=== PATIENT | female | born 1970 | race Caucasian/White ===

== ENCOUNTER → 2020-09-05 16:04 | Outpatient (CLI) | payer OTHER, SELFPAY ==
--- NOTE | ~2020-09-05 | XR_ITS ---
EXAMINATION: XR chest 2V DATE: 09/05/2020 16:19 INDICATION: Cough and wheezing. TECHNIQUE: Frontal and lateral views of the chest were obtained. COMPARISON: CT abdomen and pelvis 02/09/10 FINDINGS: There are mild airspace opacities in right mid and upper lung zones and left mid and lower lung zones. No pleural effusion or pneumothorax. The heart size is normal. IMPRESSION: 1. Multifocal lung disease suspicious for atypical pneumonia such as COVID-19 pneumonia. Reviewed, dictated and finalized at location A. INE PECAN PICKER IMPRESSION: 1. Multifocal lung disease suspicious for atypical pneumonia such as COVID-19 p neumonia.
== END ==
PROVIDERS: PCP Physician Assistant; Visit Provider Physician Assistant
DX: R05 Cough (principal); R06.2 Wheezing
CPT/HCPCS: 71046

== ENCOUNTER → 2020-09-16 10:33 | Outpatient (CLI) | payer OTHER, SELFPAY ==
--- NOTE | ~2020-09-16 | XR_ITS ---
EXAMINATION: XR chest 2V 09/16/2020 10:50 INDICATION: Follow-up pneumonia PROCEDURE: 2 view chest COMPARISON: 09/05/2020 FINDINGS: The lungs are clear. The cardiomediastinal silhouette is within normal limits. There are no pleural effusions. There is no pneumothorax suspected. IMPRESSION: 1: NO ACUTE CARDIOPULMONARY DISEASE. Reviewed, dictated and finalized at location B. ER
== END ==
PROVIDERS: PCP Physician Assistant; Visit Provider Physician Assistant
DX: J18.9 Pneumonia, unspecified organism (principal)
CPT/HCPCS: 71046

== ENCOUNTER → 2020-12-20 07:02 | Outpatient (CLI) | payer OTHER, SELFPAY ==
[2020-12-20 22:47] LABS: SARS-CoV-2 RNA PCR Negative
== END ==
PROVIDERS: PCP Physician Assistant; Visit Provider Physician Assistant
DX: R68.89 Other general symptoms and signs (principal); Z20.822 Contact with and (suspected) exposure to COVID-19
CPT/HCPCS: C9803; U0003; U0005

== ENCOUNTER 2021-09-19 17:39 | Emergency (ER) | payer OTHER, SELFPAY ==
--- NOTE | ~2021-09-19 | XR_ITS ---
EXAMINATION: XR chest 2V EXAM DATE: 09/19/2021 18:02 INDICATION: Pain between shoulder blades, posterior chest pain. TECHNIQUE: Frontal and lateral projections of the chest obtained and reviewed. Comparison is made to prior examination from 09/16/2020. FINDINGS: The lungs are clear. There are no pleural effusions. The cardiomediastinal silhouette is within normal limits. There is no pneumothorax suspected. The bones and soft tissues are unremarkab le. IMPRESSION: No acute cardiopulmonary findings. Reviewed, dictated and finalized at location A. MENDER
--- NOTE | 2021-09-19 17:40 | ECG_ITS ---
Measurements Intervals [place] Rate: 88 P: 6 [place]: 189 QRS: 20 QRSD: 81 T: 12 QT: 334 QTc: 406 Interpretive Statements SINUS RHYTHM NORMAL ECG Electronically Signed On 09-19-2021 20:21:31 [employer]OMER SERVICE DISPATCHER by Maximino Cruz D.O.
[2021-09-19 17:54] VITALS: BP 145/84; PULSE 99; RESP 17; TEMP 36.1; O2SAT 100
[2021-09-19 18:18] LABS: Basophils Percent Auto 0.5 % (0.2-1.2); Eosinophils Absolute Auto 0.2 K/mm3 (0-0.3); Hematocrit 40.4 % (37.0-47.0); Hemoglobin 13.7 g/dL (12.0-15.0); Immature Granulocyte Absolute 0.03 K/mm3 (0.00-0.031); Immature Granulocyte Percent A 0.4 % (0-0.5); Lymphocytes Percent Auto 27.3 % (18.3-44.2); Mean Corpuscular HGB Conc 33.9 g/dl (32-36); Mean Corpuscular Hemoglobin 30.6 pg (26-34); Mean Corpuscular Volume 90.4 fl (80-100); Mean Platelet Volume 10.3 fl (7.4-10.4); Monocytes Absolute Auto 0.5 K/mm3 (0.1-0.6); Monocytes Percent Auto 6.1 % (2.6-8.5); Neutrophils Absolute Auto 5.4 K/mm3 (1.3-6.7); Neutrophils Percent Auto 63.7 % (45.5-73.1); Platelet Count Result 260 k/mm3 (150-375); Red Blood Count 4.47 M/mm3 (4.2-5.4); Red Cell Distribution Width 11.9 % (11.5-14.5); White Blood Count 8.4 K/mm3 (4.5-10.0)
[2021-09-19 18:22] LABS: Prothrombin Time 13.1 Seconds (11.1-14.7)
[2021-09-19 18:23] LABS: Partial Thromboplastin Time 30.1 SECONDS (22.3-36.8)
[2021-09-19 18:25] LABS: Alanine Aminotransferase 40 U/L (4-35); Albumin Level 4.7 g/dL (3.5-5.1); Alkaline Phosphatase 81 U/L (38-126); Anion Gap 8 mmol/L (8-16); Aspartate Amino Transferase 33 U/L (14-36); Bilirubin,Total 0.4 mg/dL (0.2-1.3); Blood Urea Nitrogen 11 mg/dL (7-17); Calcium 9.4 mg/dL (8.4-10.2); Carbon Dioxide 27 mmol/L (22-30); Chloride 96 mmol/L (98-107); Estimated CRCL calculation 76 ml/min; Estimated Glomerular Filt Rate > 60; Glucose 82 mg/dL (65-110); Lipase 79 U/L (23-300); Potassium 3.6 mmol/L (3.4-5.0); Sodium 131 mmol/L (137-145)
[2021-09-19 18:35] LABS: Troponin I < 0.012 ng/mL (0.000-0.034)
--- NOTE | 2021-09-19 20:10 | ED.CHESTPAIN ---
HPI - Chest Pain General Chief Complaint: Chest Pain Stated Complaint: chest pain Time Seen by Provider: 09/19/21 19:59 Source: patient and family Mode of arrival: ambulatory Limitations: no limitations History of Present Illness HPI narrative: 51-year-old with no major medical problems sent from urgent care with complaints of midsternal chest pain radiating into her mid back. Patient states that she had pain last night. She states the pain is much eased up. She denies history of coronary artery disease. No history of cough or shortness of breath. Denies any nausea or vomiting. No previous history of GERD. MD complaint: chest pain Onset (ago): day(s) (1) Prior episodes: No Onset: during rest Pain location: substernal Pain radiation: back Severity: moderate Relieving factors: nothing Exacerbating factors: nothing Treatment prior to arrival: none Risk Factors Coronary artery disease risk factors: none Related Data Allergies Allergy/AdvReac Type Severity Reaction Status Date / Time Cephalosporins Allergy Mild Rash Verified 09/19/21 17:53 doxycycline Allergy Mild H/A, Verified 09/19/21 17:53 nausea, dizziness cephalexin Allergy Unknown Unknown Verified 09/19/21 17:53 Sulfa (Sulfonamide Allergy Unknown Unknown Verified 09/19/21 17:53 Antibiotics) sulfamethizole Allergy Unknown Unknown Verified 09/19/21 17:53 tetracycline Allergy Unknown Unknown Verified 09/19/21 17:53 trimethoprim Allergy Unknown Unknown Verified 09/19/21 17:53 Review of Systems Review of Systems: All systems reviewed & are unremarkable except as noted in HPI and below Constitutional: Constitutional: Reports no additional constitutional complaints Eyes: Eyes: Reports no additional eye complaints ENT: Reports system reviewed and no additional complaints, except as documented Cardiovascular: Cardiovascular: Reports as per HPI Respiratory: Respiratory: Reports no additional respiratory complaints Gastrointestinal: Gastrointestinal: Reports no additional gastrointestinal complaints Musculoskeletal: Musculoskeletal: Reports no additional musculoskeletal complaints Neurologic: Reports system reviewed and no additional complaints, except as documented Hematologic/Lymphatic: Hematologic/Lymphatic: Reports no additional hematologic/lymphatic complaints [facility] Family History Family History Mother Hypertension Other Carcinoma of colon Family history of arthritis Family history of lung disease Family history of malignant neoplasm Social History Social History Smoking status: Never smoker Alcohol intake: current Exam Narrative: GENERAL: Well-appearing, well-nourished, and in no acute distress. HEAD: Normocephalic, atraumatic. EYES: PERRLA and EOMI. ENT: Nares clear, no rhinorrhea or epistaxis. Mucous membranes moist. NECK: Supple. CHEST: Clear to auscultation. No respiratory distress. HEART: Regular rate and rhythm. No murmur heard. Normal peripheral pulses. ABDOMEN: Soft, nontender, nondistended, normal active bowel sounds. EXTREMITIES: Normal range of motion. No edema. SKIN: Warm, dry, no rash. NEURO: No focal deficits. Alert and oriented x3. PSYCH: Normal mood and affect. Course Course Emergency Course: Patient upon arrival to the ER has no chest pain. Informed her about her lab work, EKG. Cause of her pain most likely appears to be atypical chest pain. Advised her to follow-up with her primary doctor. She does feel comfortable going home. Vital Signs Vital signs: Vital Signs Temperature 36.1 C L 09/19/21 17:54 Pulse Rate 99 09/19/21 17:54 Respiratory Rate 17 09/19/21 17:54 Blood Pressure 145/84 H 09/19/21 17:54 Pulse Oximetry 100 09/19/21 17:54 Temperature 36.1 C L 09/19/21 17:54 Pulse Rate 99 09/19/21 17:54 Respiratory Rate 17 09/19/21 17:54 Blood Pressure 145/84 H 09/19
[2021-09-19 20:49] VITALS: BP 126/87; PULSE 108; RESP 22; O2SAT 100
== END 2021-09-19 20:53 | disposition home or self-care (01) ==
LOC: ANHED 20:27
PROVIDERS: Emergency Medicine; Emergency Provider Family Medicine; PCP Physician Assistant
DX: R07.2 Precordial pain (principal)
CPT/HCPCS: 36415; 71046; 80053; 83690; 84484; 85025; 85610; 85730; 93005; 99284

== ENCOUNTER 2021-11-07 14:15 | Outpatient (CLI) | payer OTHER, SELFPAY ==
--- NOTE | ~2021-11-07 | US_ITS ---
EXAMINATION: US venous doppler UE RT EXAM DATE: 11/07/2021 14:45 INDICATION: Right upper extremity swelling. TECHNIQUE: Multiple grayscale, color flow, Doppler sonographic images of the right upper extremity ve ins obtained by technologist. Compression was performed where able. There is no prior study for mallorie murphy. FINDINGS: Right upper extremity: Jugular vein: ------------> Normal. Subclavian vein: --------> Normal. Axillary vein:------------> Normal. Brachial vein:-----------> Normal. Basilic vein: ------------> Normal. Cephalic vein: ----------> Normal. Radial vein: ------------> Normal. Ulnar vein: > Normal. IMPRESSION: No deep venous thrombosis of the right upper extremity. Reviewed, dictated and finalized at location A. ER
== END 2021-11-07 14:16 | disposition home or self-care (01) ==
LOC: ANHIMG 14:17
PROVIDERS: PCP Physician Assistant; Visit Provider Physician Assistant
DX: R22.31 Localized swelling, mass and lump, right upper limb (principal)
CPT/HCPCS: 93971

== ENCOUNTER 2021-11-29 08:32 | Outpatient (CLI) | payer OTHER, SELFPAY ==
--- NOTE | ~2021-11-29 | XR_ITS ---
EXAMINATION: XR hand RT min 3V INDICATION: Right hand swelling TECHNIQUE: Three views of the right hand are obtained. COMPARISON: None available FINDINGS: Bone alignment is normal. There is no fracture. 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 The soft tissues a re unremarkable. IMPRESSION: 1. No acute osseous abnormality. Reviewed, dictated and finalized at location A. RVISOR MATRIX
== END 2021-11-29 08:33 | disposition home or self-care (01) ==
LOC: ANHIMG 08:37
PROVIDERS: PCP Physician Assistant; Visit Provider Physician Assistant
DX: R60.0 Localized edema (principal)
CPT/HCPCS: 73130

== ENCOUNTER → 2022-02-07 14:01 | Outpatient (CLI) | payer OTHER, SELFPAY ==
--- NOTE | ~2022-02-07 | XR_ITS ---
XR chest 2V DATE: 02/07/2022 14:12 INDICATION: Cough TECHNIQUE: PA and lateral views COMPARISON: 09/19/2021 PA and lateral chest FINDINGS: Normal heart size. No hilar or mediastinal enlargement. No pulmonary infiltrate or consolid ation, pleural effusion or pulmonary vascular congestion or pneumothorax. IMPRESSION: No active cardiopulmonary disease Reviewed, dictated and finalized at location A.
== END ==
PROVIDERS: PCP Physician Assistant; Visit Provider Physician Assistant
DX: R05.1 Acute cough (principal)
CPT/HCPCS: 71046

== ENCOUNTER 2022-02-20 10:35 | Outpatient (CLI) | payer OTHER, SELFPAY ==
--- NOTE | 2022-02-20 11:15 | NEURO_ITS ---
Impression: # Complains of numbness of hands. # Subtle evolving left Carpal Tunnel Syndrome. # No ulnar neuropathy. # Normal needle/EMG exam. # Clinical correlation recommended. Nerve Conduction Studies Anti Sensory Summary Table Stim Site NR Peak (ms) P-T Amp (?V) Site1 Site2 Delta-P (ms) Dist (cm) Roberth (m/s) Left Median Anti Sensory (2-3nd Digit) Wrist 2.6 70.9 Wrist 2-3nd Digit 2.6 14.0 54 Wrist 2.6 92.5 Wrist 2-3nd Digit 2.6 14.0 54 Right Median Anti Sensory (2-3nd Digit) Wrist 2.3 94.1 Wrist 2-3nd Digit 2.3 14.0 61 Wrist 2.4 95.4 Wrist 2-3nd Digit 2.3 14.0 61 Left Radial Anti Sensory (Base 1st Digit) Wrist 1.6 31.4 Wrist Base 1st Digit 1.6 0.0 Right Radial Anti Sensory (Base 1st Digit) Wrist 2.0 41.7 Wrist Base 1st Digit 2.0 0.0 Left Ulnar Anti Sensory (5th Digit) Wrist 2.1 83.2 Wrist 5th Digit 2.1 14.0 67 Right Ulnar Anti Sensory (5th Digit) Wrist 2.2 86.4 Wrist 5th Digit 2.2 14.0 64 Motor Summary Table Stim Site NR Onset (ms) O-P Amp (mV) Site1 Site2 Delta-0 (ms) Dist (cm) Roberth (m/s) Left Median Motor (Abd Poll Brev) Wrist 3.4 7.0 Elbow Wrist 4.7 27.0 57 Elbow 8.1 3.5 Right Median Motor (Abd Poll Brev) Wrist 3.0 11.4 Elbow Wrist 4.0 24.0 60 Elbow 7.0 5.1 Left Ulnar Motor (Abd Dig Minimi) Wrist 2.2 6.4 A Elbow Wrist 4.6 27.0 59 A Elbow 6.8 7.2 Right Ulnar Motor (Abd Dig Minimi) Wrist 2.2 7.3 A Elbow Wrist 4.6 27.0 59 A Elbow 6.8 6.6 F Wave Studies NR F-Lat (ms) L-R F-Lat (ms) Left Median (Mrkrs) (Abd Poll Brev) 25.67 0.70 Right Median (Mrkrs) (Abd Poll Brev) 26.37 0.70 Left Ulnar (Mrkrs) (Abd Dig Min) 25.37 0.25 Right Ulnar (Mrkrs) (Abd Dig Min) 25.62 0.25 EMG Side Muscle Nerve Root Ins Act Fibs Amp Dur Recrt Comment Right 1stDorInt Ulnar C8-T1 Nml Nml Nml Nml Nml Right Ext Indicis Radial (Post Int) C7-8 Nml Nml Nml Nml Nml Right Ext Digitorum Radial (Post Int) C7-8 Nml Nml Nml Nml Nml Right BrachioRad Radial C5-6 Nml Nml Nml Nml Nml Right PronatorTeres Median C6-7 Nml Nml Nml Nml Nml Right Abd Poll Brev Median C8-T1 Nml Nml Nml Nml Nml Left 1stDorInt Ulnar C8-T1 Nml Nml Nml Nml Nml Left Ext Indicis Radial (Post Int) C7-8 Nml Nml Nml Nml Nml Left Ext Digitorum Radial (Post Int) C7-8 Nml Nml Nml Nml Nml Left BrachioRad Radial C5-6 Nml Nml Nml Nml Nml Left PronatorTeres Median C6-7 Nml Nml Nml Nml Nml Left Abd Poll Brev Median C8-T1 Nml Nml Nml Nml Nml MTDD
== END 2022-02-20 10:36 | disposition home or self-care (01) ==
PROVIDERS: PCP Physician Assistant; Visit Provider Orthopaedic Surgery
DX: G56.01 Carpal tunnel syndrome, right upper limb (principal); R20.0 Anesthesia of skin; R20.2 Paresthesia of skin; G56.02 Carpal tunnel syndrome, left upper limb
CPT/HCPCS: 95886; 95911

== ENCOUNTER 2022-03-07 01:21 | Day surgery (SDC) | payer OTHER, SELFPAY ==
[2022-03-05 18:37] VITALS: BMI 31.4
--- NOTE | 2022-03-05 18:52 | PC.NURSE ---
Report to the Outpatient Waiting Room, entrance under the green pavilion located off [facility], at time 1230 on date 03/07/22. OR Time: 1430 . - You and your visitor will be asked a series of questions to screen for COVID 19 for your protection. - Only one visitor is allowed at this time. - The patient visitor is requested to leave or wait in car when not with patient. - A mask is required within the hospital. Patients may have clear liquids (water, carbonated beverages, clear teas, apple juice) until 3 hours prior to surgery with a maximum of 20 ounces. - No food from midnight until time of surgery - Infants may have breast milk until 4 hours before surgery, infant formula 6 hours prior to surgery. - Children will be allowed to drink immediately following surgery. If applicable, please bring a bottle or sippy cup to assist with drinking. Juice, water, soda, and popsicles are readily available. For infants on formula, please bring formula the day of surgery. Pacifiers are allowed. Take the following medications with a SIP of water the morning of surgery: levothyroxine Medications to discontinue per physician Date to take last dose Please no make-up, nail citizen of [place], hairspray, perfume, deodorant, or body powder the day of surgery. No jewelry (including any body piercings) or valuables the day of surgery, leave them at home. Please take a shower or bath the night before, or the morning of, surgery with an antibacterial soap. Wear comfortable, loose fitting clothing. Children are encouraged to wear pajamas. - Jewelry must be removed prior to entering the operating room. Rings and piercings that are not removed may be cut off. - The hospital will not accept responsibility for valuables. - Please leave all valuables, including medications, at home the day of surgery. If you are going home after surgery, a licensed commercial driver's license driver must drive you home. - NO public transportation without another adult. - We recommend that an adult stay with you for 24 hours following discharge. - We also recommend that you do not drive, make important decision, drink alcoholic beverages, or take any drugs that were not prescribed by your health care provider for at least 24 hours after your discharge time. For Pediatric surgeries, we recommend two adults accompany the child home (only one inside the building at this time). Follow any additional instructions given to you from your surgeon. If you or anyone in your household have experienced Covid symptoms in the past week, please notify your surgeon or the nurse liaison at the phone number below for possible testing. Telephone instructions given to Fany Umaña and asked if any additional questions and then verbalized understanding. Patient advised to call surgeon office or pre surgery nurse liaison [phone] if any additional questions.
--- NOTE | 2022-03-07 07:14 | WPDHPUPDATE1 ---
History and Physical Update Update Date/Time: 03/07/22 07:14 History and Physical has been reviewed, including an updated exam of the patient. There are NO changes in the patient's condition. Risks, benefits, and alternatives have been discussed and questions answered. Patient agrees to proceed with procedure.
[2022-03-07 12:42] VITALS: BP 109/64; PULSE 93; RESP 16; TEMP 36.3; O2SAT 100
[2022-03-07] MEDS: CELECOXIB 200 MG CAPSULE PO (13:06)
[2022-03-07] MEDS: ACETAMINOPHEN 500 MG TABLET 1000 MG PO (13:06)
--- NOTE | 2022-03-07 13:36 | WPDANESEPPF ---
Anes - Initial Pre Proc Eval Procedure: Operation Date: 03/07/22 14:30 Proposed Procedures p Right Carpal Tunnel Release - Red Aceves MD Date/Time: 03/07/22 13:36 Surgeon: Red Aceves MD Pre Op Diagnosis: Rt Carpal Tunnel Syndrome Patient Data Age: 51 Gender: F Height: 1.52 m Weight: 74.4 kg Last Vital Signs Temp 36.3 C L 03/07/22 12:42 Pulse 93 03/07/22 12:42 Resp 16 03/07/22 12:42 BP 109/64 03/07/22 12:42 Pulse Ox 100 03/07/22 12:42 O2 Del Method Room Air 03/07/22 12:42 Allergies Allergy/AdvReac Type Severity Reaction Status Date / Time Cephalosporins Allergy Mild Rash Verified 03/07/22 13:01 cephalexin Allergy Unknown Hives Verified 03/07/22 13:01 Sulfa (Sulfonamide Allergy Unknown Hives Verified 03/07/22 13:01 Antibiotics) sulfamethizole Allergy Unknown Unknown Verified 03/07/22 13:01 trimethoprim Allergy Unknown Unknown Verified 03/07/22 13:01 doxycycline AdvReac Mild H/A, Verified 03/07/22 13:01 nausea, dizziness Home Medications Medication Instructions Recorded Confirmed Type cetirizine 10 mg tablet (Zyrtec) 10 mg PO DAILY PRN allergies 02/05/22 03/07/22 History conjugated estrogens 0.625 mg 0.625 mg PO DAILY 02/05/22 03/07/22 History tablet (Premarin) levothyroxine 50 mcg capsule 50 mcg PO DAILY 02/05/22 03/07/22 History (Tirosint) metformin 500 mg tablet 500 mg PO BID 02/05/22 03/07/22 History phentermine 15 mg capsule 7.5 mg PO DAILY 02/05/22 03/07/22 History spironolactone 50 mg tablet 100 mg PO DAILY 02/05/22 03/07/22 History cyanocobalamin (vitamin B-12) 1 tablet PO WEEKLY 03/05/22 03/07/22 History Patient hx anesthesia problems: none Family hx anesthesia problems: none Results Review: All pre-operative results and documents have been reviewed as part of the pre-operative evaluation. [facility] Past Medical History Medical History Constipation Dizziness Hoarseness Hypothyroidism Numbness and tingling of upper extremity Wears glasses Surgical History Surgical History History of hysterectomy History of knee surgery Left meniscus repair 01/08/[address] Aceves Family History Family History Mother Hypertension Other Asthma Carcinoma of colon Family history of arthritis Family history of lung disease Family history of malignant neoplasm Social History Social History Smoking status: Never smoker Alcohol intake: current Substance use: never Substance use type: does not use Living arrangements: with family Gender identity (if verbalized by the patient): Female Sexual Orientation (if Verbalized by the Patient): Straight or Heterosexual Spiritual care concerns: No Anes - Eval Final PreProcedure Day of Procedure 03/07/22 13:36 Patient weight: obese Heart: regular rate and rhythm Lungs: clear to auscultation Airway: Mallampati scale class II Neurological: alert and oriented Last oral intake: >/= 8 hours ASA classification: III Emergent: no Anesthetic plan: proceed Anesthesia type and monitoring: general LMA and standard monitoring Results Review: All pre-operative results and documents have been reviewed as part of the pre-operative evaluation. Informed Consent: The patient's anesthetic plan and its attendant risks and benefits were discussed with the patient/family/POA. Questions were solicited and answers provided to the satisfaction of the patient/family/POA.
[2022-03-07] MEDS: LACTATED RINGERS 1,000 ML 30 ML IV CONT (13:55)
[2022-03-07] MEDS: KETOROLAC 15 MG/ML VIAL (*BKC) IV PUSH (14:14)
[2022-03-07] MEDS: CLINDAMYCIN 900 MG/D5W 50 ML 900 MG/50 ML PIGGYBACK 50 MG IVPB (15:41)
[2022-03-07] MEDS: LIDOCAINE HCL 1% LOCAL INJ 20 ML VIAL 10 ML INFILTRATE (15:58)
[2022-03-07 16:24] VITALS: BP 92/57; PULSE 88; RESP 12; O2SAT 97
--- NOTE | 2022-03-07 16:34 | W.PM.PROC2 ---
Procedure Note - Detailed Date of Procedure 03/07/22 Pre-op Diagnosis Rt Carpal Tunnel Syndrome Post-op Diagnosis Same Procedure Performed RIGHT CTR Surgeon Red Aceves MD Anesthesia General Description of Procedure THE RIGHT UPPER EXTREMITY WAS PREPPED AND DRAPED IN THE STERILE FASHION. THE CARPAL TUNNEL WAS MARKED FROM THE FLEXED RING FINGER. THE TOURNIQUET WAS INFLATED. THE INCISION WAS MADE AT THE MID PALM DOWN THROUGH THE SUBCUTANEOUS TISSUES. THE PALMAR FASCIA WAS IDENTIFIED. AN INCISION WAS MADE THROUGH THE PALMAR FASCIA UNTIL THE CARPAL TUNNEL WAS ENTERED. A MOSQUITO HEMOSTAT WAS USED TO PROTECT THE MEDIAN NERVE WHILE THE INCISION TO THE PALMAR FASCIA WAS COMPLETE PROXIMALLY AND DISTALLY TO THE CARDINAL LINE. NEXT, THE TRANSVERSE CARPAL LIGAMENT WAS IDENTIFIED. A FREER ELEVATOR WAS USED TO SEPARATE THE NERVE FROM THE LIGAMENT. A METZENBAUM SCISSORS WAS THEN USED TO INCISE THE TRANSVERSE CARPAL LIGAMENT UNTIL THERE WAS A COMPLETE RELEASE OF THE CARPAL TUNNEL. THE MEDIAN NERVE WAS INTACT. THE TOURNIQUET WAS DEFLATED. THE BLEEDERS WERE CAUTERIZED. THE WOUND WAS WASHED. THE SKIN WAS APPROXIMATED WITH 4-0 NYLON SUTURE. STERILE DRESSING WAS APPLIED. PATIENT WAS EXTUBATED AND SENT TO THE RECOVERY ROOM. Estimated Blood Loss 5 Complications No immediate complications Condition Stable Disposition PACU
[2022-03-07 16:50] VITALS: BP 97/63; PULSE 84; RESP 20
[2022-03-07] MEDS: oxyCODONE HCL (*CRX) 5 MG TAB IR PO (17:10)
[2022-03-07 17:20] VITALS: BP 97/63; PULSE 79; RESP 20
== END 2022-03-07 17:40 | disposition home or self-care (01) ==
PROVIDERS: PCP Physician Assistant; Visit Provider Orthopaedic Surgery
PROC: (CPT 64721; principal; 2022-03-07 14:30)
DX: G56.01 Carpal tunnel syndrome, right upper limb (principal); E03.9 Hypothyroidism, unspecified; E66.9 Obesity, unspecified; Z68.32 Body mass index [BMI] 32.0-32.9, adult
CPT/HCPCS: 64721; A9270; J1885; J2250; J2704; J3010; J7120

== ENCOUNTER 2022-09-19 10:39 | Day surgery (SDC) | payer OTHER, SELFPAY ==
[2022-05-31 08:55] VITALS: BMI 32.0
[2022-09-11 11:54] VITALS: BMI 30.9
--- NOTE | 2022-09-18 15:02 | PM.HPGS ---
History of Present Illness History of Present Illness Consent: Risks, benefits, and alternatives have been discussed and questions answered. Patient agrees to proceed with procedure. Chief complaint: Family history of colon cancer Narrative: Fany Umaña is a 52 year old female referred for colon cancer screening. She has a family history of colon cancer. Review of Systems Review of Systems: All systems reviewed & are unremarkable except as noted in HPI and below PMFSH Past Medical History Medical History Asthma Constipation Diabetes type 2, controlled Dizziness Hoarseness Hypothyroidism Numbness and tingling of upper extremity Wears glasses Surgical History Surgical History History of hysterectomy History of knee surgery Left meniscus repair 01/08/[address] Aceves Family History Family History Mother Hypertension Other Asthma Carcinoma of colon Family history of arthritis Family history of lung disease Family history of malignant neoplasm Social History Social History Smoking status: Never smoker Alcohol intake: current Drinks per week: 2 Substance use: never Substance use type: does not use Living arrangements: with family Gender identity (if verbalized by the patient): Female Sexual Orientation (if Verbalized by the Patient): Straight or Heterosexual Spiritual care concerns: No Meds Home Medications and Allergies Home Medications Medication Instructions Recorded Confirmed Type cetirizine 10 mg tablet (Zyrtec) 10 mg PO DAILY PRN allergies 02/05/22 09/11/22 History conjugated estrogens 0.625 mg 0.625 mg PO DAILY 02/05/22 09/19/22 History tablet (Premarin) levothyroxine 50 mcg capsule 50 mcg PO DAILY 02/05/22 09/19/22 History (Tirosint) metformin 500 mg tablet 500 mg PO DAILY 02/05/22 09/19/22 History phentermine 15 mg capsule 7.5 mg PO DAILY 02/05/22 09/19/22 History spironolactone 50 mg tablet 100 mg PO DAILY 02/05/22 09/19/22 History cyanocobalamin (vitamin B-12) 1,000 mcg subcut WEEKLY 09/11/22 09/19/22 History 1,000 mcg/mL injection solution Allergies Allergy/AdvReac Type Severity Reaction Status Date / Time Cephalosporins Allergy Mild Rash Verified 09/19/22 11:50 cephalexin Allergy Unknown Hives Verified 09/19/22 11:50 Sulfa (Sulfonamide Allergy Unknown Hives Verified 09/19/22 11:50 Antibiotics) sulfamethizole Allergy Unknown Unknown Verified 09/19/22 11:50 trimethoprim Allergy Unknown Unknown Verified 09/19/22 11:50 doxycycline AdvReac Mild H/A, Verified 09/19/22 11:50 nausea, dizziness Exam Const: General: alert Orientation/consciousness: patient oriented x3 Resp: Auscultation: clear to auscultation bilaterally Cardio: Rhythm: regular rhythm GI: GI Palp: Yes Soft to palpation and No Tenderness to palpation present (GI) Neuro: General: patient oriented x3 Assessment and Plan Assessment and plan (1) Colon cancer screening: Code(s): Z12.11 - Encounter for screening for malignant neoplasm of colon Status: Acute Assessment and Plan: Colonoscopy with possible biopsy or polypectomy or cautery or injection of substances.
--- NOTE | 2022-09-19 07:14 | WPDANESEPPF ---
Anes - Initial Pre Proc Eval Procedure: Operation Date: 09/19/22 12:00 Proposed Procedures p Screening Colonoscopy - Mitch Kincaid MD Date/Time: 09/19/22 07:14 Surgeon: Mitch Kincaid MD Pre Op Diagnosis: Family history of colon cancer Patient Data Age: 52 Gender: F Height: 1.52 m Weight: 72 kg Allergies Allergy/AdvReac Type Severity Reaction Status Date / Time Cephalosporins Allergy Mild Rash Verified 09/11/22 11:16 cephalexin Allergy Unknown Hives Verified 09/11/22 11:16 Sulfa (Sulfonamide Allergy Unknown Hives Verified 09/11/22 11:16 Antibiotics) sulfamethizole Allergy Unknown Unknown Verified 09/11/22 11:16 trimethoprim Allergy Unknown Unknown Verified 09/11/22 11:16 doxycycline AdvReac Mild H/A, Verified 09/11/22 11:16 nausea, dizziness Home Medications Medication Instructions Recorded Confirmed Type cetirizine 10 mg tablet (Zyrtec) 10 mg PO DAILY PRN allergies 02/05/22 09/11/22 History conjugated estrogens 0.625 mg 0.625 mg PO DAILY 02/05/22 09/11/22 History tablet (Premarin) levothyroxine 50 mcg capsule 50 mcg PO DAILY 02/05/22 09/11/22 History (Tirosint) metformin 500 mg tablet 500 mg PO DAILY 02/05/22 09/11/22 History phentermine 15 mg capsule 7.5 mg PO DAILY 02/05/22 09/11/22 History spironolactone 50 mg tablet 100 mg PO DAILY 02/05/22 09/11/22 History cyanocobalamin (vitamin B-12) 1,000 mcg subcut WEEKLY 09/11/22 09/11/22 History 1,000 mcg/mL injection solution Patient hx anesthesia problems: none Family hx anesthesia problems: none Results Review: All pre-operative results and documents have been reviewed as part of the pre-operative evaluation. [facility] Past Medical History Medical History (Updated 09/19/22 @ 07:15 by Robby Morales DO) Asthma Constipation Diabetes type 2, controlled Dizziness Hoarseness Hypothyroidism Numbness and tingling of upper extremity Wears glasses Surgical History Surgical History History of hysterectomy History of knee surgery Left meniscus repair 01/08/[address] Aceves Family History Family History Mother Hypertension Other Asthma Carcinoma of colon Family history of arthritis Family history of lung disease Family history of malignant neoplasm Social History Social History Smoking status: Never smoker Alcohol intake: current Drinks per week: 2 Substance use: never Substance use type: does not use Living arrangements: with family Gender identity (if verbalized by the patient): Female Sexual Orientation (if Verbalized by the Patient): Straight or Heterosexual Spiritual care concerns: No Anes - Eval Final PreProcedure Day of Procedure 09/19/22 07:14 Patient weight: obese Heart: regular rate and rhythm Lungs: clear to auscultation Airway: Mallampati scale class II Neurological: alert and oriented Last oral intake: >/= 8 hours ASA classification: III Emergent: no Anesthetic plan: proceed Anesthesia type and monitoring: general GIVS and standard monitoring Results Review: All pre-operative results and documents have been reviewed as part of the pre-operative evaluation. Informed Consent: The patient's anesthetic plan and its attendant risks and benefits were discussed with the patient/family/POA. Questions were solicited and answers provided to the satisfaction of the patient/family/POA.
[2022-09-19 11:15] VITALS: BP 126/83; PULSE 95; RESP 20; TEMP 36.4
[2022-09-19] MEDS: LACTATED RINGERS 1,000 ML 150 ML IV CONT (11:52)
[2022-09-19 12:57] VITALS: BP 95/72; PULSE 89; RESP 16; O2SAT 98
[2022-09-19 13:07] VITALS: BP 119/72; PULSE 83; RESP 15; O2SAT 100
[2022-09-19 13:17] VITALS: BP 126/92; PULSE 84; RESP 15; O2SAT 100
--- NOTE | 2022-09-19 13:37 | WPDANESPN ---
Anes - Prog Note Post-Op Date/Time: 09/19/22 13:37 Cardiovascular status: normal Respiratory status: normal Airway patency: baseline Mental status: baseline Post-Op hydration status: normal Vital Signs: Last Vital Signs Temp 36.4 C 09/19/22 11:15 Pulse 83 09/19/22 13:07 Resp 15 09/19/22 13:07 BP 119/72 09/19/22 13:07 Pulse Ox 100 09/19/22 13:07 O2 Del Method Room Air 09/19/22 13:07 Pain Score (VAS): 00 I/O: Intake & Output 09/18/22 09/19/22 09/19/22 23:59 07:59 15:59 Intake Total 300 Balance 300 Post-procedural complaints: none Patient Feedback: Patient satisfied with anesthetic care. Other Findings: Patient vital signs back to baseline. Patient denies nausea and vomiting. Patient's pain under control. Patient OK for discharge.
[2022-09-19 13:53] LABS: Glucose Point of Care 87 mg/dl (65-105)
== END 2022-09-19 13:35 | disposition home or self-care (01) ==
PROVIDERS: PCP Physician Assistant; Visit Provider Internal Medicine Gastroenterology
PROC: 0DJD8ZZ Inspection of Lower Intestinal Tract, Via Natural or Artificial Opening Endoscopic (ICD-10-PCS; CPT 45378; principal; 2022-09-19 12:00)
DX: Z12.11 Encounter for screening for malignant neoplasm of colon (principal)
CPT/HCPCS: 45378

== ENCOUNTER 2023-04-17 13:29 | Outpatient (CLI) | payer OTHER, SELFPAY ==
--- NOTE | ~2023-04-17 | MM_ITS ---
EXAMINATION: MM screening giselle BI w deny HISTORY: Screening mammogram TECHNIQUE: Craniocaudal and mediolateral oblique 3-D tomosynthesis images were obtained and synthetic 2-D images were generated. CAD analysis was submitted and interpreted. COMPARISON: None, baseline BREAST PARENCHYMAL COMPOSITION: There are scattered areas of fibroglandular density. FINDINGS: RIGHT BREAST: An asymmetry is present in the anterior third of the subareolar breast on the craniocau pete view. LEFT BREAST: An asymmetry is present in the middle third of the upper breast on the mediolateral obli que view. IMPRESSION: 1. Bilateral breast asymmetries. 2. Additional mammographic views and possible breast ultrasound are recommended. BI-RADS Category 0: Incomplete: Needs additional imaging evaluation. Reviewed, dictated and finalized at location A. IMPRESSION: 1. Bilateral breast asymmetries. 2. Additional mammographic views and possible breast ultrasound are recommended . BI-RADS Category 0: Incomplete: Needs additional imaging evaluation.
== END 2023-04-17 13:30 | disposition home or self-care (01) ==
LOC: ANHIMG 13:32
PROVIDERS: PCP Physician Assistant; Visit Provider Physician Assistant
DX: Z12.31 Encounter for screening mammogram for malignant neoplasm of breast (principal); R92.8 Other abnormal and inconclusive findings on diagnostic imaging of breast
CPT/HCPCS: 77063; 77067

== ENCOUNTER 2023-05-31 11:57 | Outpatient (CLI) | payer OTHER, SELFPAY ==
--- NOTE | ~2023-05-31 | MMUS_ITS ---
EXAMINATION: MM diagnostic giselle BI w deny, US breast BI limited HISTORY: Follow-up bilateral breast asymmetries TECHNIQUE: Additional 3-D tomosynthesis images of the breasts were performed and synthetic 2-D images were generated. CAD analysis was submitted and interpreted. High resolution limited bilateral breast ultrasound was performed. COMPARISON: 04/17/2023 BREAST PARENCHYMAL COMPOSITION: Breast composed of scattered areas of fibroglandular density FINDINGS: MAMMOGRAPHIC FINDINGS: There are no suspicious masses, calcifications or architectural distortion is identified to suggest m alignancy. ULTRASOUND: Limited bilateral breast ultrasound: Normal heterogeneous echotexture without focal solid or cystic m ass. IMPRESSION: 1. No evidence for malignancy in either breast. 2. . Routine yearly screening mammogram and regular clinical breast examination are recommended. BI-RADS Category 1: Negative Reviewed, dictated and finalized at location A. IMPRESSION: 1. No evidence for malignancy in either breast. 2. . Routine yearly screening mammogram and regular clinical breast examination are recommended. BI-RADS Category 1: Negative
== END 2023-05-31 11:58 | disposition home or self-care (01) ==
LOC: ANHIMG 12:00
PROVIDERS: PCP Physician Assistant; Visit Provider Physician Assistant
DX: R92.8 Other abnormal and inconclusive findings on diagnostic imaging of breast (principal)
CPT/HCPCS: 76642; 77062; 77066; G0279

== ENCOUNTER 2023-09-12 08:28 | Outpatient (CLI) | payer OTHER, SELFPAY ==
--- NOTE | 2023-09-12 | ECHO_ITS ---
Patient Info Name: Fany Umaña Age: 53 years : 1970 Gender: Female Ht: 60 in Wt: 160 lbs BSA: 1.78 m2 HR: 82 bpm BP: 132 / 94 mmHg Technical Quality: Fair Exam Date: 09/12/2023 9:16 AM Exam Location: Echo Lab Patient Status: Outpatient Admit Date: 09/12/2023 Staff Ordering Physician: HusseinBrittani PA-C Wind Energy Engineer: Mari Villarreal RDCS Attending Provider: MoisesBrittani PA-C Exam Type: CA echo doppler color flow Study Info Indications - syncope and collaspe Complete two-dimensional, color flow and Doppler transthoracic echocardiogram is performed. Summary 1. Complete two-dimensional, color flow and Doppler transthoracic echocardiogram is performed. 2. Left ventricular chamber dimension is normal. 3. Left ventricular systolic function is normal, estimated at 60-65%. 4. The left ventricular diastolic function is grade I diastolic dysfunction. 5. E/e' 6 is not elevated. 6. There is trace tricuspid valve regurgitation. 7. No pulmonary hypertension, estimated pulmonary arterial systolic pressure is 19 mmHg. 8. There is trace pulmonic regurgitation. Left Ventricle E/e' 6 is not elevated. Left ventricular chamber dimension is normal. Left ventricular systolic function is normal, estimated at 60-65%. The left ventricular diastolic function is grade I diastolic dysfunction. Right Ventricle Right ventricular chamber dimension is normal. Right ventricular systolic function is normal. Left Atria Left atrial chamber dimension is normal. Right Atria Right atrial chamber dimension is normal. Aortic Valve The aortic valve is trileaflet. There is no aortic valve stenosis. There is no aortic valve regurgitation. Pulmonic Valve There is trace pulmonic regurgitation. Mitral Valve There is no mitral valve stenosis. There is no mitral valve regurgitation. Tricuspid Valve There is trace tricuspid valve regurgitation. No pulmonary hypertension, estimated pulmonary arterial systolic pressure is 19 mmHg. Pericardium/Pleural There is no pericardial effusion. Inferior Vena Cava Normal inferior vena cava with >50% collapse upon inspiration consistent with normal right atrial pressure, 5 mmHg. Aorta The aortic root size at the sinus of Valsalva is normal. Left Ventricular Outflow Tract Name Value Normal LVOT 2D LVOT Diameter 2.0 cm LVOT Doppler LVOT Peak Gradient 4 mmHg LVOT Mean Gradient 2 mmHg LVOT VTI 17 cm LVOT VTI/AV VTI Ratio 0.8 LVOT Stroke Volume 51 ml LVOT CO 11.8 l/min LVOT CI 6.6 l/min/m2 Pulmonic Valve Name Value Normal RVOT Doppler RVOT Peak Gradient 2 mmHg PV Doppler PV Peak Gradient
== END 2023-09-12 08:29 | disposition home or self-care (01) ==
LOC: ANHCARD 08:31
PROVIDERS: PCP Physician Assistant; Visit Provider Physician Assistant
DX: R55 Syncope and collapse (principal)
CPT/HCPCS: 93306

== ENCOUNTER 2023-10-21 10:34 | Outpatient (CLI) | payer OTHER, SELFPAY ==
--- NOTE | ~2023-10-21 | XR_ITS ---
XR chest 2V DATE: 10/21/2023 10:55 INDICATION: Wheezing TECHNIQUE: PA and lateral views COMPARISON: February 07, 2022 2 view chest FINDINGS: Normal heart size. There is minimal aortic unfolding. No hilar or mediastinal enlargement. No pulmonary infiltrate or consolidation, pleural effusion or pulmonary vascular congestion or pneumo thorax. Minimal levoscoliosis and degenerative spurring of the thoracic spine. IMPRESSION: No active cardiopulmonary disease. The lungs do not appear abnormally hyperinflated. Reviewed, dictated and finalized at location B. INER IMPRESSION: No active cardiopulmonary disease. The lungs do not appear abnormal ly hyperinflated.
== END 2023-10-21 10:35 | disposition home or self-care (01) ==
PROVIDERS: PCP Physician Assistant; Visit Provider Physician Assistant
DX: R06.2 Wheezing (principal)
CPT/HCPCS: 71046

== ENCOUNTER 2024-07-12 13:24 | Emergency (ER) | payer OTHER, SELFPAY ==
[2024-07-12 13:32] VITALS: BP 105/58; PULSE 107; RESP 16; TEMP 36.6; O2SAT 100
--- NOTE | 2024-07-12 13:54 | ED.FEMALEGU ---
HPI - Female Genitourinary General Chief complaint: Urogenital-Female Stated complaint: Uti Symptoms Time Seen by Provider: 07/12/24 13:50 Source: patient Mode of arrival: ambulatory Limitations: no limitations History of Present Illness HPI Narrative: Fany is a 54-year-old female patient presenting to the clinic today with complaints of possible urinary tract infection. She reports that her symptoms started this morning with some burning with urination and pressure in her bladder. Denies any fever, chills, body aches, back pain, or nausea or vomiting. She denies any vaginal discharge or odor Related Data Home Medications Medication Instructions Recorded Confirmed cetirizine 10 mg tablet (Zyrtec) 10 mg PO DAILY PRN allergies 02/05/22 09/11/22 conjugated estrogens 0.625 mg 0.625 mg PO DAILY 02/05/22 09/19/22 tablet (Premarin) levothyroxine 50 mcg capsule 50 mcg PO DAILY 02/05/22 09/19/22 (Tirosint) metformin 500 mg tablet 500 mg PO DAILY 02/05/22 09/19/22 phentermine 15 mg capsule 7.5 mg PO DAILY 02/05/22 09/19/22 spironolactone 50 mg tablet 100 mg PO DAILY 02/05/22 09/19/22 cyanocobalamin (vitamin B-12) 1,000 mcg subcut WEEKLY 09/11/22 09/19/22 1,000 mcg/mL injection solution Allergies Allergy/AdvReac Type Severity Reaction Status Date / Time Cephalosporins Allergy Mild Rash Verified 07/12/24 13:54 cephalexin Allergy Unknown Hives Verified 07/12/24 13:54 Sulfa (Sulfonamide Allergy Unknown Hives Verified 07/12/24 13:54 Antibiotics) sulfamethizole Allergy Unknown Unknown Verified 07/12/24 13:54 trimethoprim Allergy Unknown Unknown Verified 07/12/24 13:54 clindamycin Allergy Other Verified 07/12/24 13:56 doxycycline AdvReac Mild H/A, Verified 07/12/24 13:54 nausea, dizziness Review of Systems Review of Systems: Pertinent positives per HPI. Patient denies any fever, chills, rash, headache, visual changes, dizziness, cough, runny nose, sore throat, shortness of breath, chest pain, palpitations, nausea, vomiting, diarrhea, constipation, abdominal pain PMFSH Past Medical History Medical History Asthma Constipation Diabetes type 2, controlled Dizziness Hoarseness Hypothyroidism Numbness and tingling of upper extremity Wears glasses Surgical History Surgical History History of hysterectomy History of knee surgery Left meniscus repair 01/08/[address] Aceves Family History Family History Mother Hypertension Other Asthma Carcinoma of colon Family history of arthritis Family history of lung disease Family history of malignant neoplasm Social History Social History Smoking status: Never smoker Alcohol intake: current Drinks per week: 2 Substance use: never Substance use type: does not use Living arrangements: with family Occupation/Education: occupation Gender identity (if verbalized by the patient): Female Sexual Orientation (if Verbalized by the Patient): Straight or Heterosexual Spiritual care concerns: No Comments At the time of my signature, I reviewed and agree with the nursing past medical, surgical, social, and family history. There is no relevant family history pertinent to the patient complaint. Exam Narrative: General: Well-developed, well nourished, in no apparent distress. Head: Normocephalic, atraumatic. Cardio: Regular rate and rhythm, s1 and s2 normal, no murmur appreciated. Resp: Clear to auscultation bilaterally, no rhonchi, rales, wheezing or rubs. Abdomen: Soft, pliable, bowel sounds present in all quadrants, suprapubic tender to palpation, no organomegly, no CVAT tenderness. Course Course Emergency Course: Portions of this record may have been created with voice recognition software. Laine
[2024-07-13 14:30] LABS: EDUAAPPEAR Cloudy; EDUABILI Negative (Negative); EDUABLOOD 1+ (Negative); EDUACOLOR1 Light/Pale; EDUAGLUCOSE Negative (Negative); EDUAKETONE Negative (Negative); EDUALEUKO 1+ (Negative); EDUANITRATE Negative (Negative); EDUAPROTEIN Negative (Negative); EDUAUROBILI 0.2
== END 2024-07-12 13:58 | disposition home or self-care (01) ==
PROVIDERS: Emergency Provider Nurse Practitioner Family; PCP Physician Assistant
DX: N39.0 Urinary tract infection, site not specified (principal); J45.909 Unspecified asthma, uncomplicated; E11.9 Type 2 diabetes mellitus without complications; Z79.84 Long term (current) use of oral hypoglycemic drugs; E03.9 Hypothyroidism, unspecified
CPT/HCPCS: 81003; 87086; 99213; G0463

== ENCOUNTER 2025-03-08 10:54 | Emergency (ER) | payer OTHER, SELFPAY ==
[2025-03-08 11:05] VITALS: BP 134/96; PULSE 85; RESP 16; TEMP 36.3; O2SAT 100
--- NOTE | 2025-03-08 11:06 | ED_ITS ---
HPI - Headache General Chief Complaint: Headache Stated Complaint: HEADACHE Time Seen by Provider: 03/08/25 11:05 Source: patient, RN notes reviewed and old records reviewed Mode of arrival: ambulatory Limitations: no limitations History of Present Illness HPI Narrative: 54 year old female who presents to [facility] care with complaints of headache starting on Saturday evening and gradually increasing intensity the past 2 days. Patient reports that she has had migraines in the past but is not plagued with them frequently stating this the worse headache she has ever had. Patient reports that she has pain to her left eye and side of head and when she moves her left eye it makes pain worse. Patient reports increased watering from her left eye with no vision change. Patient has full ROM of all extremities with no drift, face is symmetrical, reports nausea with no vomiting. MD elicited complaint: headache Pertinent past history: migraines Onset (ago): day(s) (since Saturday evening with gradually increased intensity) Location: left, temporal and other (in left eye) Severity: severe Pain scale (0-10): 10 Related Data Home Medications ?Medication ?Instructions ?Recorded ?Confirmed ?Last Taken ?Type cetirizine 10 mg tablet (Zyrtec) 10 mg PO DAILY PRN allergies 02/05/22 03/08/25 03/06/22 History levothyroxine 50 mcg capsule 50 mcg PO DAILY 02/05/22 03/08/25 1 Day Ago History (Tirosint) ~09/18/22 metformin 500 mg tablet 500 mg PO DAILY 02/05/22 03/08/25 2 Days Ago History ~09/17/22 spironolactone 50 mg tablet 100 mg PO DAILY 02/05/22 03/08/25 1 Day Ago History ~09/18/22 cyanocobalamin (vitamin B-12) 1,000 mcg subcut WEEKLY 09/11/22 03/08/25 1 Day Ago History 1,000 mcg/mL injection solution ~09/18/22 azelastine 0.05 % eye drops drp 03/08/25 Unknown History epinephrine 0.3 mg/0.3 mL 03/08/25 Unknown History injection, auto-injector estradiol 0.5 mg tablet mg 03/08/25 Unknown History famotidine 40 mg tablet mg 03/08/25 Unknown History fluticasone propionate 50 intranasal 03/08/25 Unknown History mcg/actuation nasal spray,suspension montelukast 10 mg tablet mg 03/08/25 Unknown History phentermine 15 mg capsule mg 03/08/25 Unknown History progesterone micronized 200 mg mg 03/08/25 Unknown History capsule Allergies Allergy/AdvReac Type Severity Reaction Status Date / Time Cephalosporins Allergy Mild Rash Verified 03/08/25 11:38 cephalexin Allergy Unknown Hives Verified 03/08/25 11:38 Sulfa (Sulfonamide Allergy Unknown Hives Verified 03/08/25 11:38 Antibiotics) sulfamethizole Allergy Unknown Unknown Verified 03/08/25 11:38 trimethoprim Allergy Unknown Unknown Verified 03/08/25 11:38 clindamycin Allergy Other Verified 03/08/25 11:38 doxycycline AdvReac Mild H/A, Verified 03/08/25 11:38 nausea, dizziness Review of Systems Review of Systems: CONSTITUTIONAL: Denies fever, chills, or sweats. EYES: Denies visual changes, redness, or discharge. ENT: Reports some rhinorrhea,no feelings of congestion, sore throat, or otalgia. CARDIOVASCULAR: Denies chest pain, palpitations, or edema. RESPIRATORY: Denies cough or dyspnea. GASTROINTESTINAL: Denies abdominal pain,positive for some nausea,no vomiting, or diarrhea. GENITOURINARY: Denies dysuria or hematuria. SKIN: Denies rash or itching. MUSCULOSKELETAL: Denies back pain, joint pain, or myalgia. NEUROLOGIC: Reports headache,no numbness, or weakness.pain to the left side of head and behind the left eye with left eye sensitive with movement of eye, denies any vision changes PSYCHIATRIC: Denies anxiety or depression. All systems reviewed & are unremarkable except as noted in HPI and below PMFSH Past Medical History Medical History Degenerative joint disease of knee Effusion of knee joint Diabetes type 2, controlled Asthma Hypothyroidism Constipation Hoarseness Wears glasses Dizziness Numbness and tingling of upper extremity Surgical History Surgical History History of knee surgery Left meniscus repair 01/08/[address] Aceves History of hysterectomy Family History Family History Mother Hypertension Other Asthma Carcinoma of colon Family history of arthritis Family history of lung disease Family history of malignant neoplasm Social History Social History Smoking status: Never smoker Alcohol intake: current Drinks per week: 2 Substance use: never Substance use type: does not use Living arrangements: with family Occupation/Education: occupation Gender identity (if verbalized by the patient): Female Sexual Orientation (if Verbalized by the Patient): Straight or Heterosexual Spiritual care concerns: No Comments At time of signature, agree with nursing past medical, surgical, social and family history. There is no relevant family history pertinent to the presenting complaint Exam Narrative: GENERAL Ill-appearing, well-nourished, and in some acute distress. HEAD: Normocephalic, atraumatic. EYES: PERRLA and EOMI.reports pain to her left eye especially with movement of her left eye ENT: Nares clear, rhinorrhea no epistaxis. Mucous membranes moist.TM's normal throat pink with no swelling NECK: Supple. no lymphadenopathy CHEST: Clear to auscultation. No respiratory distress. no cough or congestion SAO2 100% on room air HEART: Regular rate and rhythm. No murmur heard. Normal peripheral pulses. ABDOMEN: Soft, nontender, nondistended, normal active bowel sounds. reports some nausea with no emesis EXTREMITIES: Normal range of motion. No edema. SKIN: Warm, dry, no rash. NEURO: No focal deficits. Alert and oriented x3. severe headache pain to left side of head and behind left eye Course Course Emergency Course: Patient is aware of diagnosis, understands and agrees to treatment plan.? Anticipatory guidance given.? Patient agrees to follow-up as directed and is aware of reasons to seek care at the emergency department. Portions of this record may have been created with voice recognition software Level of Care: Express Care Visit Vital Signs Vital signs: Vital Signs Temperature 36.3 C L 03/08/25 11:05 Pulse Rate 85 03/08/25 11:05 Respiratory Rate 16 03/08/25 11:05 Blood Pressure 134/96 H 03/08/25 11:05 Pulse Oximetry 100 03/08/25 11:05 Temperature 36.3 C L 03/08/25 11:05 Pulse Rate 85 03/08/25 11:05 Respiratory Rate 16 03/08/25 11:05 Blood Pressure 134/96 H 03/08/25 11:05 Pulse Oximetry 100 03/08/25 11:05 Reviewed Transfer Transfered to: [place] Transportation: Other (private car with spouse) Transfer rationale: reports headache for the past 4 days with increasing intensity associated with nausea and pain behind left eye and increased with left eye movement. Patient reports worse headache she has ever had. Accepting physician: Dr Hay Transfer comments: To ED per private car with spouse MDM - Headache MDM Narrative Medical decision making narrative: 1123 Call placed to ED at [facility] with condition update to [facility] with PMH and VS reviewed with Dr Hay accepting patient for transfer. Differential Diagnosis Differential diagnosis: Likely migraine and other (cluster headache, nausea with headache, left eye pain with headache) Medical Records Attestation: I reviewed the patient's medical records. Critical Care Time Critical Care Time Critical Care Time: No Discharge Plan Discharge Clinical Impression: Acute headache Qualifiers: Headache type: unspecified Intractability: intractable Qualified Code(s): R51.9 - Headache, unspecified Patient Disposition: Acute Care Hospital Condition: Stable Patient Language: Czech Prescriptions: No Action azelastine 0.05 % drops famotidine 40 mg tablet phentermine 15 mg capsule progesterone micronized 200 mg capsule montelukast 10 mg tablet estradiol 0.5 mg tablet epinephrine 0.3 mg/0.3 mL auto-injector fluticasone propionate 50 mcg/actuation spray,suspension INTRANASAL cetirizine [Zyrtec] 10 mg tablet 10 mg PO DAILY PRN (Reason: allergies) levothyroxine [Tirosint] 50 mcg capsule 50 mcg PO DAILY metformin 500 mg tablet 500 mg PO DAILY Rx Instructions: takes in evening spironolactone 50 mg tablet 100 mg PO DAILY Patient Comments: on provided med list cyanocobalamin (vitamin B-12) 1,000 mcg/mL solution 1,000 mcg subcut WEEKLY Follow-up/Referrals: Hussein,ROBB Peter [Primary Care Provider] - Time of Disposition: 11:41 Quality Blas Coma Scale Eyes: Open Verbal: Oriented and Alert Motor: Follows Commands Blas Coma Total Score: 15
== END 2025-03-08 11:24 | disposition short-term general hospital (02) ==
PROVIDERS: Emergency Provider Registered Nurse; PCP Physician Assistant
DX: R51.9 Headache, unspecified (principal); E11.9 Type 2 diabetes mellitus without complications; Z79.84 Long term (current) use of oral hypoglycemic drugs; J45.909 Unspecified asthma, uncomplicated; E03.9 Hypothyroidism, unspecified
CPT/HCPCS: 99213; G0463

== ENCOUNTER 2025-03-08 11:37 | Emergency (ER) | payer OTHER, SELFPAY ==
--- NOTE | ~2025-03-08 | CT_ITS ---
CT brain wo con Ordering provider: Guevara Hay MD History: 54 years Female with . Headache with focus behind left eye . Comparison: None. Technique: CT of the head without contrast. Radiation reduction technique utilized.The dose-length product was 605.33 mGy-cm. FINDINGS: BRAIN PARENCHYMA AND CSF SPACES: No midline shift, mass effect or hemorrhage. The brain parenchyma a nd CSF spaces are otherwise normal. VISUALIZED PARANASAL SINUSES: Well aerated. MASTOIDS: Well aerated. BONES: The bones appear intact. SOFT TISSUES: Visualized nasopharynx is normal. Superficial soft tissues are normal. IMPRESSION: No acute intracranial findings. Reviewed, dictated and finalized at location A.
--- OUTSIDE RECORDS SUMMARY | 2025-03-08 11:39 | XMS_ITS | Clinical Summary ---
Author Organization [facility] Address [address] [place] [address] Care Team Providers Care Egg Packer Name Role Phone Brittani Savage Primary Care Pr ovider Allergies Active Allergy Reactions Criticality Noted Date Comments Cephalexin Hives Reaction: HIVES, , Clindamycin Hives Medium 07/26/2023 Doxycycline Hives Medium 07/26/2023 Sulfa (Sulfonamide Antibiotics) Rash Reaction: RASH, , Medications cetirizine (ZyrTEC) 10 mg capsule Take one daily 0 0 6 Active cyanocobalamin (Vitamin B-12) 1,000 mcg/mL injection INJECT 1 ML EVERY WEEK BY SUBCUTANEOUS ROUTE IN THE MORNING FOR 90 DAYS. 4 Active Tirosint 50 mcg capsule Take 1 capsule (50 mcg total) by mouth every morning Active BD Insulin Syringe Ultra-Fine 1 mL 31 gauge x 5/16 syringe INJECT 1ML OF B12 SUBCUTANEOUSLY ONCE WEEKLY 4 Active spironolactone (ALDACTONE) 100 mg tablet Take 1 tablet (100 mg total) by mouth every morning 90 tablet 1 4 Active Premarin 0.625 mg tablet Take 1 tablet (0.625 mg total) by mouth every morning 90 tablet 2 4 Active phentermine 15 mg capsule Take 1 capsule (15 mg total) by mouth every morning 90 capsule 1 4 Active Active Problems Problem Noted Date Diagnosed Date Menopause 11/28/2023 Assessment & Plan (11/28/2023 3:55 PM BOTTLE LINE WORKER): Continue HRT with premarin Vitamin B 12 deficiency 11/28/2023 Assessment & Plan (11/28/2023 3:55 PM BOTTLE LINE WORKER): Update vit B12 levels Recommendations to follow Obesity due to excess calories without serious c omorbidity 11/28/2023 Assessment & Plan (11/28/2023 3:57 PM BOTTLE LINE WORKER): Diet and exercise Continue Phentermine Hypothyroidism 02/27/2014 Overview (01/17/2017): HYPOTHYROIDISM NOS Assessment & Plan (11/28/2023 3:54 PM BOTTLE LINE WORKER): Chronic, stable Will update TFTs If needed, will adjust dose of Tirosint. 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 (01/17/2017): ANT PITUIT HYPERFUNC NEC Hyperprolactinemia 05/20/2009 Thyroid activity decreased 05/20/2009 0 11/28/2023 Surgical History Surgery Date Site/Laterality Comments OTHER SURGICAL HISTORY Adenomyosis, menorrhagia: Total laparoscopic hysterectomy, bilateral salpingectomy OTHER SURGICAL HISTORY 2000 : OTHER SURGICAL HISTORY 2002 : OTHER SURGICAL HISTORY 1993 : OTHER SURGICAL HISTORY 1997 : Medical History Medical History Date Comments Disorder of thyroid Thyroid dise ase Hx Other Medical Adenomyosis, me norrhagia; Comments: MRP 06/21/2016 - Hx Other Medical ; Outc ome: 37W0D week 6lb(s) 10 oz Hx Other Medical ; Outc ome: 37W0D week 6lb(s) Hx Other Medical ; Outc ome: 8lb(s) 7 oz Hx Other Medical ; Outc ome: 35W0D week 5lb(s) 15 oz 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 Family History Medical History Relation Name Comments Colon cancer Father Cancer, colon; Relation Name Status Comments Father Social History Tobacco Use Types Packs/Day Years Used Date Smoking Tobacco: Never Tobacco Cessation:Counseling Given: Not Answered Alcohol Use Standard Drinks/Week Comments Yes 0 (1 standard drink = 0.6 oz pur e alcohol) Comments Unknown Sex and Gender Information Value Date Recorded Sex Assigned at Not on file Legal Sex Female 7:59 AM BOTTLE LINE WORKER Gender Identity Not on file Sexual Orientation Not on file Obstetrics History Last Filed Vital Signs Vital Sign Reading Time Taken Comments Blood Pressure 130/70 11/28/2023 1:29 PM BOTTLE LINE WORKER Pulse 67 11/28/2023 1:29 PM BOTTLE LINE WORKER Temperature - - Respiratory Rate 16 11/28/2023 1:29 PM BOTTLE LINE WORKER Oxygen Saturation 97% 08/16/2014 3:29 PM BOTTLE LINE WORKER Inhaled Oxygen Concentration - - Weight 74.3 kg (163 lb 11.2 oz) 11/28/2023 1:29 PM BOTTLE LINE WORKER Height 152.4 cm (5') 11/28/2023 1:29 PM BOTTLE LINE WORKER Body Mass Index 31.97 11/28/2023 1:29 PM BOTTLE LINE WORKER Plan of Treatment Health Maintenance Due Date Last Done Comments Cervical Cancer Screening 1970 Colon Cancer Screening-Colonoscopy 1970 Depression Screening 1970 Hepatitis C Screening 1970 DTaP/Tdap/Td Vaccine (1 - Tdap) 1981 Hepatitis B Screening 1988 Regular Well Visit/Exam 18-64 1988 Breast Cancer Screening-Mammogram 06/21/2017 06/21/2016 Zoster Vaccine (1 of 2) 2020 Covid-19 Vaccine ( - 2023-2 5 season) 2024 08/26/2021, 08/05/2021 Influenza Vaccine (Season Ended) 2025 Pneumococcal vaccine <65 Aged Out No longer eligible based on patient's age to complete this topic Procedures Procedure Name Priority Date/Time Associated Diagnosis Comments SCREENING MAMMOGRAM 2D BILATERAL Routine 06/21/2016 12:00 AM CDT from Last 3 Months or Most Recently Relevant to Health Maintenance Results * Screening Mammogram 2D Bilateral (06/21/2016 12:00 AM CDT) Anatomical Region Laterality Modality Breast Bilateral Mammography 06/21/2016 12:3 0 PM CDT Narrative 06/26/2016 8:00 AM CDT - MAMMOGRAPHY, SCREENING RH BILATERAL FIRST EVER DIGITAL SCREENING MAMMOGRAM WITH CAD: 06/21/2016 CLINICAL: Routine screening. Baseline examination. No prior exams were available for comparison. There are scattered fibroglandular elements in both breasts. Current study was also evaluated with a Computer Aided Detection (CAD) system. No significant masses, calcifications, or other findings are seen in either breast. IMPRESSION: NEGATIVE There is no mammographic evidence of malignancy. A 1 year screening mammogram is recommended. The patient will be contacted by letter. Afshan Head M.D. [facility]/[place]:06/25/2016 14:20:16 letter sent: Normal Exam Mammogram BI-RADS: 1 Negative Radiologist: AFSHAN HEAD M.D. Attending: PRADIP RIOS M.D. Requesting: PRADIP RIOS M.D. Requesting Requesting ID: [id number] Attending Attending ID: [id number] Completed Time: 06/21/2016 12:30 AM Dictated Time: N/A Transcribed Time: 06/26/2016 08:00 AM Signed by: AFSHAN HEAD M.D. on 06/26/2016 08:00 AM Report To 1 ID: Report To 1 Name: , Report To 1 FAX: Report To 2 ID: Report To 2 Name: , Report To 2 FAX: Report To 3 ID: Report To 3 Name: , Report To 3 FAX: NextGen Order #: Procedure Note Provider, MD Nayely - 02/06/2017 - MAMMOGRAPHY, SCREENING RH BILATERAL FIRST EVER DIGITAL SCREENING MAMMOGRAM WITH CAD: 06/21/2016 CLINICAL: Routine screening. Baseline examination. No prior exams were available for comparison. There are scattered fibroglandular elements in both breasts. Current study was also evaluated with a Computer Aided Detection (CAD) system. No significant masses, calcifications, or other findings are seen in either breast. IMPRESSION: NEGATIVE There is no mammographic evidence of malignancy. A 1 year screening mammogram is recommended. The patient will be contacted by letter. Afshan mendez/george:06/25/2016 14:20:16 letter sent: Normal Exam Mammogram BI-RADS: 1 Negative Radiologist: AFSHAN HEAD M.D. Attending: PRADIP RIOS M.D. Requesting: PRADIP RIOS M.D. Requesting Requesting ID: [id number] Attending Attending ID: [id number] Completed Time: 06/21/2016 12:30 AM Dictated Time: N/A Transcribed Time: 06/26/2016 08:00 AM Signed by: AFSHAN HEAD M.D. on 06/26/2016 08:00 AM Report To 1 ID: Report To 1 Name: , Report To 1 FAX: Report To 2 ID: Report To 2 Name: , Report To 2 FAX: Report To 3 ID: Report To 3 Name: , Report To 3 FAX: NextGen Order #: [facility] Provider MD THURMAN MAMMO PROCEDURES Bernice l Result from Last 3 Months or Most Recently Relevant to Health Maintenance Insurance [id number] [place] [address] [facility] CHOICE PLUS [facility] CHOICE PLUS Care Teams Egg Packer Relationship Specialty Start Date End Date Brittani Savage PA PCP - General Physician Director Of Extension Work 11/28/23
--- OUTSIDE RECORDS SUMMARY | 2025-03-08 11:39 | XMS_ITS ---
Author Organization [facility] Address [address] [place] [address] Care Team Providers Care Legal Support Specialist Name Role Phone Raya Calix Primary Care Provider [phone] Medications Medication SIG (Take, Route, Fr equency, Duration) Notes Start Date End Date Status Phentermine HCl 15 MG 1 capsule Orally O nce a day for 90 days 10/14/2024 Active Encounters Encounter Location Date Provider Diagnosis [facility] [place] [address] 10/14/2024 Raya Calix Obesity, unspecifie d E66.9 Assessments Encounter Date Diagnosis (ICD Code) Assessment Notes Treatment Notes Treatment Clinical Notes Section Notes 10/14/2024 Obesity, unspecified (ICD-10 - E66.9) Plan Of Treatment Medication Medication Name Sig Start Date Stop Date Notes Phentermine HCl 15 MG 1 capsule Orally O nce a day for 90 days 10/14/2024 Progress Notes * KODY FadumoB:1970 (5 4 yo F)Acc No.[id number]:10/14/2024 Patient: Fany BOWER :1970 A ge:54 Y S ex:Female Phone: Address:[address] [place] [id number] * Refills Start Phentermine HCl Capsule, 15 MG, Orally, 90 Capsule, 1 capsule, Once a day, 90 days, Refills=1 Subjective: * Chief Complaints: * * Medical History: * Surgical History: * Hospitalization/Major Diagno stic Procedure: * Medications: Objective: * Vitals: * Physical Examination: Assessment: * Assessment: 1. O besity, unspecified - E66.9 (Primary) Plan: * Treatment: * Procedure Codes: * true * Date: Generated for Mohini west/Nichelle/Braulioitting on: 0 03/08/2025 11:39 AM CDT
--- OUTSIDE RECORDS SUMMARY | 2025-03-08 11:39 | XMS_ITS | Referral Summary ---
Author Organization [facility] Address [address] [place] [address] Care Team Providers Care Action Installer Name Role Phone Brittani Savage Primary Care [...] 11/28/2023 Assessment & Plan (11/28/2023 3:55 PM HOT SAW OPERATOR): Continue HRT with premarin Vitamin B 12 deficiency 11/28/2023 Assessment & Plan (11/28/2023 3:55 PM HOT SAW OPERATOR): Update vit B12 levels Recommendations to follow Obesity due to excess calories without serious c omorbidity 11/28/2023 Assessment & Plan (11/28/2023 3:57 PM HOT SAW OPERATOR): Diet and exercise Continue Phentermine Hypothyroidism 02/27/2014 Overview (01/17/2017): HYPOTHYROIDISM NOS Assessment & Plan (11/28/2023 3:54 PM HOT SAW OPERATOR): Chronic, stable Will update TFTs If needed, will adjust dose of Tirosint. 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 (01/17/2017): ANT PITUIT HYPERFUNC NEC Hyperprolactinemia 05/20/2009 4 Thyroid activity decreased 05/20/2009 0 11/28/2023 Social History Tobacco Use Types Packs/Day Years Used Date Smoking Tobacco: Never Tobacco Cessation:Counseling Given: Not Answered Alcohol Use Standard Drinks/Week Comments Yes 0 (1 standard drink = 0.6 oz pur e alcohol) Comments Unknown Sex and Gender Information Value Date Recorded Sex Assigned at Not on file Legal Sex Female 7:59 AM HOT SAW OPERATOR Gender Identity Not on file Sexual Orientation Not on file Last Filed Vital Signs Vital Sign Reading Time Taken Comments Blood Pressure 130/70 11/28/2023 1:29 PM HOT SAW OPERATOR Pulse 67 11/28/2023 1:29 PM HOT SAW OPERATOR Temperature - - Respiratory Rate 16 11/28/2023 1:29 PM HOT SAW OPERATOR Oxygen Saturation 97% 08/16/2014 3:29 PM HOT SAW OPERATOR Inhaled Oxygen Concentration - - Weight 74.3 kg (163 lb 11.2 oz) 11/28/2023 1:29 PM HOT SAW OPERATOR Height 152.4 cm (5') 11/28/2023 1:29 PM HOT SAW OPERATOR Body Mass Index 31.97 11/28/2023 1:29 PM HOT SAW OPERATOR Plan of Treatment Not on file Procedures Procedure Name Priority Date/Time Associated Diagnosis [...] be contacted by letter. Afshan Head M.D. [facility]/[place]:06/25/2016 14:20:16 letter sent: Normal Exam Mammogram BI-RADS: 1 Negative Radiologist: AFSHAN HEAD M.D. Attending: PRADIP RIOS M.D. Requesting: PRADIP RIOS M.D. Requesting Requesting ID: [id number] Attending Attending ID: [id number] Completed Time: 06/21/2016 12:30 AM Dictated Time: [...] patient will be contacted by letter. Afshan mendez/[place]:06/25/2016 14:20:16 letter sent: Normal Exam Mammogram BI-RADS: 1 Negative Radiologist: AFSHAN HEAD M.D. Attending: PRADIP RIOS M.D. Requesting: PRADIP RIOS M.D. Requesting Requesting ID: [id number] Attending Attending ID: [id number] Completed Time: 06/21/2016 12:30 AM Dictated Time: [...] Report To 3 FAX: NextGen Order #: Historical Provider MD THURMAN MAMMO PROCEDURES Bernice l Result from Last 3 Months or Most Recently Relevant to Health Maintenance Insurance [employer] [facility] HMO [facility] CHOICE PLUS CHOICE PLUS Care Teams Action Installer Relationship Specialty Start Date End Date Brittani Savage PA PCP - General Physician Hose Stripper 11/28/23
--- OUTSIDE RECORDS SUMMARY | 2025-03-08 11:39 | XMS_ITS | Data Portability ---
Author Organization [facility], Main Office Address [address] [place] [address] Assessment Encounter Date Assessment Date Assessment LastModified by Organization Details LastModified Time 05/07/2023 05/07/2023 colonoscopy 2021, repeat 5 years mammogram UTD w/u/s ordered [email or web address] Not available 05/07/2023 09:53:08 Plan of Treatment Reminders Order Date Submit Date Provider Last Modified By Organization Details Last Modified Time Details Appointments None recorded. Lab CBC w/ auto diff 2022 023 [place] [facility], [address], [place], [address], 3 09:30:30 Referral None recorded. Procedures None recorded. Surgeries None recorded. Imaging US, echocardiog dania, transthorac ic, complete, w/ color flow - approved [id number] 09/10/23-10/[address] [facility] ([facility]), [address], [place], [address], 3 16:45:07 MRI, brain, w/wo contrast - Approved [id number] 06/21/23-07/[address] [facility] ([facility]), [address] [place] [address], [address], 3 09:54:46 Medication Orders phentermine 15 mg capsule 2022 023 [email or web address] Not available 05/15/202 3 12:36:08 Patient TargetsNo targets recorded. Patient InstructionsNo instructions recorded. Reason for Referral None Reported. Results Created Date Observation Date Name Description Value Unit Range Abnormal Flag Note LastModifiedBy Organization Detail LastModifiedTime 07/11/2007/15/2023 LIPID PANEL , STAND SHARON cholesterol, total 227 mg/dL <200 high Not Available [facility] [place] [address] [place], [address], 07/15/2023 09:30:29 07/11/2007/15/2023 LIPID PANEL , STAND SHARON HDL cholesterol 69 mg/dL > or = 50 normal Not Available [facility] [address] [address] [place], [address], 07/15/2023 09:30:29 07/11/2007/15/2023 LIPID PANEL , STAND SHARON triglyceride s 185 mg/dL <150 high Not Available [facility] [address] [address] [place], [address], 07/15/2023 09:30:29 07/11/2007/15/2023 LIPID PANEL , STAND SHARON LDL-choleste rol 127 mg/dL _(elysia c) high Refer ence range : <100 Chitra able range <100 mg/dL for prima ry preve ntion ; <70 mg/dL for patie nts with CHD or diabe tic patie nts with > or = 2 CHD risk facto rs. LDL-C is now calcu lated using the Kristin n-Hop kins isabelu ynes n, which is a valid ated novel metho d provi trace maryjo r accur acy than the Fried leny equat ion in the estim ation of LDL-C . Kristin montenegro SS et al. ABDON. 2013; 310(1 9): 2061- 2068 (http ://ed ucati on.Qu Karol frank [employer] Legendss. com/f aq/FA Q164) Not Available [facility] [address] [address] [place], [address], 07/15/2023 09:30:29 07/11/202023 LIPID PANEL , STAND SHARON chol/HDLC ratio 3.3 (calc ) <5.0 normal Not Available [address], [address], 07/15/2023 09:30:29 07/11/20 23 07/15/2023 LIPID PANEL , STAND SHARON non HDL cholesterol 158 mg/dL _(elysia c) <130 high For patie nts with diabe cristal plus 1 major ASCVD risk facto r, treat ing to a non-H DL-C goal of <100 mg/dL (LDL- C of <70 mg/dL ) is consi dered a thera peyuli c optio n. Not Available [address], [address], 07/15/2023 09:30:29 07/11/2007/15/2023 COMPR EHENS MURRAY METAB OLIC PANEL glucose 79 mg/dL 65-99 normal Fasti ng refer ence inter marta Not Available [address] [address] [place], [address], 07/15/2023 09:30:30 07/11/20 23 07/15/2023 COMPR EHENS MURRAY METAB OLIC PANEL urea nitrogen (BUN) 14 mg/dL 7-25 normal Not Available [address], [address], 07/15/2023 09:30:30 07/11/20 23 07/15/2023 COMPR EHENS MURRAY METAB OLIC PANEL creatinine 0.82 mg/dL 0.50-1 .03 normal Not Available [address] [address] [place], [address], 07/15/2023 09:30:30 07/11/20 23 07/15/2023 COMPR EHENS MURRAY METAB OLIC PANEL eGFR 85 mL/mi n/1.7 3m2 > or = 60 normal Not Available [address], [address], 07/15/2023 09:30:30 07/11/20 23 07/15/2023 COMPR EHENS MURRAY METAB OLIC PANEL BUN/creatini ne ratio SEE NOTE: (calc ) 6-22 Not Repor eli: BUN and Creat inine are withi n refer ence range . Not Available [address], [address], 07/15/2023 09:30:30 07/11/20 23 07/15/2023 COMPR EHENS MURRAY METAB OLIC PANEL sodium 135 mmol/ L 135-14 6 normal Not Available [address], [address], 07/15/2023 09:30:30 07/11/20 23 07/15/2023 COMPR EHENS MURRAY METAB OLIC PANEL potassium 4.6 mmol/ L 3.5-5. 3 normal Not Available [address] [facility] [place], [address], 07/15/2023 09:30:30 07/11/20 23 07/15/2023 COMPR EHENS MURRAY METAB OLIC PANEL chloride 100 mmol/ L 98-110 normal Not Available [address], [place], [address], 07/15/2023 09:30:30 07/11/20 23 07/15/2023 COMPR EHENS MURRAY METAB OLIC PANEL carbon dioxide 26 mmol/ L 20-32 normal Not Available [address], [place], [address], 07/15/2023 09:30:30 07/11/20 23 07/15/2023 COMPR EHENS MURRAY METAB OLIC PANEL calcium 9.5 mg/dL 8.6-10 .4 normal Not Available [address] [place], [address], 07/15/2023 09:30:30 07/11/20 23 07/15/2023 COMPR EHENS MURRAY METAB OLIC PANEL protein, total 7.4 g/dL 6.1-8. 1 normal Not Available [address], [address], 07/15/2023 09:30:30 07/11/20 23 07/15/2023 COMPR EHENS MURRAY METAB OLIC PANEL albumin 4.5 g/dL 3.6-5. 1 normal Not Available [address], [address], 07/15/2023 09:30:30 07/11/20 23 07/15/2023 COMPR EHENS MURRAY METAB OLIC PANEL globulin 2.9 g/dL_ (calc ) 1.9-3. 7 normal Not Available [address], [address], 07/15/2023 09:30:30 07/11/20 23 07/15/2023 COMPR EHENS MURRAY METAB OLIC PANEL albumin/glob ulin ratio 1.6 (calc ) 1.0-2. 5 normal Not Available [address], [address], 07/15/2023 09:30:30 07/11/20 23 07/15/2023 COMPR EHENS MURRAY METAB OLIC PANEL bilirubin, total 0.4 mg/dL 0.2-1. 2 normal Not Available [address], [address], 07/15/2023 09:30:30 07/11/20 23 07/15/2023 COMPR EHENS MURRAY METAB OLIC PANEL alkaline phosphatase 60 U/L 37-153 normal Not Available [address], [address], 07/15/2023 09:30:30 07/11/20 23 07/15/2023 COMPR EHENS MURRAY METAB OLIC PANEL AST 17 U/L 10-35 normal Not Available [address], [address], 07/15/2023 09:30:30 07/11/20 23 07/15/2023 COMPR EHENS MURRAY METAB OLIC PANEL ALT 16 U/L 6-29 normal Not Available [address], [address], 07/15/2023 09:30:30 07/11/20 23 07/15/2023 CBC (INCL UDES DIFF/ PLT) white blood cell count 6.3 thous and/u L 3.8-10 .8 normal Not Available [address], [address], 07/15/2023 09:30:30 07/11/20 23 07/15/2023 CBC (INCL UDES DIFF/ PLT) red blood cell count 4.38 arnav on/uL 3.80-5 .10 normal Not Available [address], [address], 07/15/2023 09:30:30 07/11/20 23 07/15/2023 CBC (INCL UDES DIFF/ PLT) hemoglobin 13.6 g/dL 11.7-1 5.5 normal Not Available [address], [address], 07/15/2023 09:30:30 07/11/20 23 07/15/2023 CBC (INCL UDES DIFF/ PLT) hematocrit 40.2 % 35.0-4 5.0 normal Not Available [address], [address], 07/15/2023 09:30:30 07/11/20 23 07/15/2023 CBC (INCL UDES DIFF/ PLT) MCV 91.8 fL 80.0-1 00.0 normal Not Available [address], [address], 07/15/2023 09:30:30 07/11/20 23 07/15/2023 CBC (INCL UDES DIFF/ PLT) MCH 31.1 pg 27.0-3 3.0 normal Not Available [address], [address], 07/15/2023 09:30:30 07/11/20 23 07/15/2023 CBC (INCL UDES DIFF/ PLT) MCHC 33.8 g/dL 32.0-3 6.0 normal Not Available [address], [address], 07/15/2023 09:30:30 07/11/20 23 07/15/2023 CBC (INCL UDES DIFF/ PLT) RDW 12.1 % 11.0-1 5.0 normal Not Available [address], [address], 07/15/2023 09:30:30 07/11/20 23 07/15/2023 CBC (INCL UDES DIFF/ PLT) platelet count 279 thous and/u L 140-40 0 normal Not Available [address], [address], 07/15/2023 09:30:30 07/11/20 23 07/15/2023 CBC (INCL UDES DIFF/ PLT) MPV 11.2 fL 7.5-12 .5 normal Not Available [address], [address], 07/15/2023 09:30:30 07/11/20 23 07/15/2023 CBC (INCL UDES DIFF/ PLT) absolute neutrophils 3812 cells /uL 1500-7 800 normal Not Available [address], [address], 07/15/2023 09:30:30 07/11/20 23 07/15/2023 CBC (INCL UDES DIFF/ PLT) absolute lymphocytes 1777 cells /uL 850-39 00 normal Not Available [address], [address], 07/15/2023 09:30:30 07/11/20 23 07/15/2023 CBC (INCL UDES DIFF/ PLT) absolute monocytes 523 cells /uL 200-95 0 normal Not Available [address], [address], 07/15/2023 09:30:30 07/11/20 23 07/15/2023 CBC (INCL UDES DIFF/ PLT) absolute eosinophils 151 cells /uL 15-500 normal Not Available [address], [address], 07/15/2023 09:30:30 07/11/20 23 07/15/2023 CBC (INCL UDES DIFF/ PLT) absolute basophils 38 cells /uL 0-200 normal Not Available [address], [address], 07/15/2023 09:30:30 07/11/20 23 07/15/2023 CBC (INCL UDES DIFF/ PLT) neutrophils 60.5 % normal Not Available [address], [address], 07/15/2023 09:30:30 07/11/20 23 07/15/2023 CBC (INCL UDES DIFF/ PLT) lymphocytes 28.2 % normal Not Available [address], [address], 07/15/2023 09:30:30 07/11/20 23 07/15/2023 CBC (INCL UDES DIFF/ PLT) monocytes 8.3 % normal Not Available [address], [address], 07/15/2023 09:30:30 07/11/20 23 07/15/2023 CBC (INCL UDES DIFF/ PLT) eosinophils 2.4 % normal Not Available [address] [address] [place], [address], 07/15/2023 09:30:30 07/11/20 23 07/15/2023 CBC (INCL UDES DIFF/ PLT) basophils 0.6 % normal Not Available [address] [address] [place], [address], 07/15/2023 09:30:30 07/11/20 23 07/15/2023 THYRO ID PEROX IDASE ANTIB ODIES thyroid peroxidase antibodies 1 IU/mL <9 Not Available [address], [address], 07/15/2023 09:30:32 07/11/20 23 07/15/2023 INSUL IN insulin 17.1 uIU/m L normal Refer ence Range < or = 18.4 Risk: Optim al < or = 18.4 Moder ate NA High >18.4 Adult cardi ovasc ular event risk categ ory cut point s (opti mal, moder ate, high) are based on Insul in Refer ence Inter marta studi es perfo rmed at [facility] in 2021. Not Available [address], [address], 07/15/2023 09:30:32 07/11/20 23 07/15/2023 T3, FREE T3, free 3.2 pg/mL 2.3-4. 2 normal Not Available [facility] [address] [address] [place], [address], 07/15/2023 09:30:33 07/11/20 23 07/15/2023 TSH+F REE T4 TSH 2.44 mIU/L normal Refer ence Range > or = 20 Years 0.40- 4.50 Pregn jeovany Range s First trime ster 0.26- 2.66 Secon d trime ster 0.55- 2.73 Third trime ster 0.43- 2.91 Not Available [facility] [address] [address] [place], [address], 07/15/2023 09:30:33 07/11/20 23 07/15/2023 TSH+F REE T4 T4, free 1.3 NG/dL 0.8-1. 8 normal Not Available [facility] [address] [address] [place], [address], 07/15/2023 09:30:33 07/11/20 23 07/15/2023 HEMOG LOBIN A1C hemoglobin A1C 5.2 %_of_ total _HGB <5.7 normal For the purpo se of scree birgit for the prese nce of diabe cristal: <5.7% Consi stent with the absen ce of diabe cristal 5.7-6 .4% Consi stent with incre ased risk for diabe cristal (pred iabet es) > or =6.5% Consi stent with diabe cristal This assay resul t is consi stent with a decre ased risk of diabe cristal. Curre ntly, no conse nsus exist s franchesca woodward use of hemog lobin A1c for diagn osis of diabe cristal in child kofi. Accor ding to Ameri can Diabe cristal Assoc iatio n (ADA) guide lines , hemog lobin A1c <7.0% repre sents optim al contr ol in non-p regna nt diabe tic patie nts. Diffe rent metri cs may apply to speci fic patie nt popul ation s. Stand ards of Medic al Care in Diabe cristal(A DA). Not Available [facility] [address] [address] [place], [address], 07/15/2023 09:30:34 10/10/20 23 10/11/2023 GLUCO SE EDUARDA ANCE TEST, 4 SPECI MENS time 1 FASTIN G Not Available [facility] [address] [address] [place], [address], 10/11/2023 02:03:51 10/10/20 23 10/11/2023 GLUCO SE EDUARDA ANCE TEST, 4 SPECI MENS specimen 1 76 mg/dL 65-99 normal Not Available [address], [address], 10/11/2023 02:03:51 10/10/20 23 10/11/2023 GLUCO SE EDUARDA ANCE TEST, 4 SPECI MENS time 2 1 HOUR Not Available [address], [address], 10/11/2023 02:03:51 10/10/20 23 10/11/2023 GLUCO SE EDUARDA ANCE TEST, 4 SPECI MENS specimen 2 122 mg/dL normal Not Available [address], [address], 10/11/2023 02:03:51 10/10/20 23 10/11/2023 GLUCO SE EDUARDA ANCE TEST, 4 SPECI MENS time 3 2 HOURS Not Available [address], [address], 10/11/2023 02:03:51 10/10/20 23 10/11/2023 GLUCO SE EDUARDA ANCE TEST, 4 SPECI MENS specimen 3 99 mg/dL normal Not Available [address], [address], 10/11/2023 02:03:51 10/10/20 23 10/11/2023 GLUCO SE EDUARDA ANCE TEST, 4 SPECI MENS time 4 3 HOURS Not Available [address], [address], 10/11/2023 02:03:51 10/10/20 23 10/11/2023 GLUCO SE EDUARDA ANCE TEST, 4 SPECI MENS specimen 4 95 mg/dL normal Not Available [address], [address], 10/11/2023 02:03:51 10/10/20 23 10/11/2023 GLUCO SE EDUARDA ANCE TEST, 4 SPECI MENS comment Ameri can Diabe cristal Assoc iatio n Diagn ostic Crite angella for Diabe cristal Melli tus Gluco se Value (mg/d L) Inter preta tion Fasti ng 1 Hr 2 Hr Eduarda ance Eduarda ance ----- ----- ---- ----- ---- ----- ---- ----- ---- Qi l <1 00 Not Estab lishe d <140 Impai red Fasti ng 100-1 25 Impai red Eduarda ance 140-1 99 Diabe cristal >OR=1 26* >OR=2 00* * Must be confi rmed by testi ng on a subse quent day. Not Available [facility] [address] [place], [address], 10/11/2023 02:03:51 04/25/20 23 04/17/2023 MAMMO , scree birgit, digit al, bilat eral No observ ation record ed. [place] [address] Not Available 2022 22:01:09 06/03/20 23 05/31/2023 MAMMO , diagn ostic , digit al, bilat eral No observ ation record ed. [address] [facility], [place], [address], 07/11/2023 22:00:16 07/29/20 23 07/26/2023 MRI, brain , w/wo contr ast No observ ation record ed. [address] [facility] [address] [place], [address], 10/08/2023 11:17:56 09/19/20 23 09/12/2023 US, echoc ardio gram, trans thora cic, compl ete, w/ color flow No observ ation record ed. [address] [facility], [place], [address], 10/08/2023 11:18:20 10/22/19 24 10/21/2023 XR, chest , 2 view No observ ation record ed. [address], [place], [address], 10/23/2023 12:21:41 Result Notes None recorded. Problems Name Problem SNOMED Code Status Onset Date Resolution Date Notes Provider Name and Address Organization Details Recorded Time Vitamin B12 deficiency (non anemic) 05598687 Active 2022 Raya Calix MD [address], [address], [place], [address] , [facility] [employer] [facility] 3 15:00:52 Obesity 635196894 Active 2022 Denisse Garcia CMA null, [facility] [employer] [facility] 3 10:31:23 Weight gain 3037452 Active 2022 RONY Drew null, [facility] [employer] [facility] 3 09:45:55 Mammograph y abnormal 809993552 Active 2022 VALERIANO Altamirano [address], [address], [place], [address] , [facility] [employer] [facility] 3 10:59:21 Abnormal weight gain 618793611 Active 2022 Alberta Finley RN null, [facility] [employer] [facility] 3 09:44:31 Syncope 699101266 Active 2022 VALERIANO Altamirano [address], [address], [place], [address] , [facility] [employer] [facility] 3 15:56:32 Pituitary adenoma 832446592 Active 2022 VALERIANO Altamirano [address], [address], [place], [address] , [facility] [employer] [facility] 3 15:57:38 Streptococ elysia tonsilliti s 01912936 Active 2022 VALERIANO Altamirano [address], [address], [place], [address] , [facility] [employer] [facility] 3 13:14:42 Hypoglycem ia 410063157 Active 2022 VALERIANO Altamirano [address] [facility], [address] [address], [place], [address] , [facility] [employer] [facility] 3 15:39:46 Wheezing 69693881 Active 2023 VALERIANO Altamirano [address] [facility], [facility] [address], [place], [address] , [facility] [employer] [facility] 4 09:51:17 Swelling of finger of right hand 4859125536028 9100 Active 2021 Not Available [facility] 3 04:45:06 Acute sinusitis 47852007 Active 2021 Not Available [facility] 3 04:45:06 Mixed anxiety and depressive disorder 728257036 Active 2019 Not Available [facility] 3 04:45:06 Hypothyroi dism due to Errol' s thyroiditi s 197092062 Active 2021 Not Available [facility] 3 04:45:06 Acute pharyngiti s 740547238 Active 2021 Not Available [facility] 3 04:45:06 Seasonal allergic rhinitis 866725794 Active 2021 Not Available [facility] 3 04:45:06 Impaired fasting glycemia 947178452 Active 2021 Not Available [facility] 3 04:45:06 Hypothyroi dism 92235028 Active 2021 Not Available [employer] 3 04:45:06 Streptococ elysia sore throat 48542360 Active 2021 Not Available [facility] 3 04:45:07 Seasonal allergy 768790831 Active 2018 Not Available [facility] 3 04:45:07 Cough 77845097 Active 2021 Not Available [facility] 3 04:45:07 Acute maxillary sinusitis 09302338 Active 2022 Not Available [facility] 3 04:45:07 Congestion of nasal sinus 73860003 Active 2021 Not Available [facility] 3 04:45:07 Impaired glucose tolerance 8831755 Active 2021 Not Available [facility] 3 04:45:07 Problem Notes None recorded. Procedures Surgical History Date Name Laterality Status Provider Name and Address Organization Details Recorded Time 2 Carpal tunnel surgery completed Not Available [facility] 12/12/2022 04:40:56 Knee Surgery completed Not Available [facility] 12/12/2022 04:40:56 Hysterectomy , Partial completed Not Available [facility] 12/12/2022 04:40:56 Imaging Results None recorded. Procedure Notes None recorded. Medical Equipment None Reported. Allergies Allergen ID Allergen Name Allergen Category Reaction Reaction Severity Criticality Documentation Date Start Date Code Code System Note Provider Name and Address Organization Details Recorded Time 6887 tetracycl ine medicatio n Not available Not available Not available 12/12/2022 84550 RxNorm Not Available [facility] 3 04:51:46 6888 Substance with sulfonami de structure and antibacte rial mechanism of action (substanc e) medicatio n Not available Not available Not available 12/12/2022 34477 8003 SNOMED Not Available [facility] 3 04:51:46 6889 Keflex medicatio n Not available Not available Not available 12/12/2022 27230 7 RxNorm Not Available [facility] 3 04:51:46 6890 doxycycli ne Not available Not available Not available Not available 12/12/2022 3640 RxNorm Not Available [facility] 3 04:51:46 6891 clindamyc in Not available hives Not available Not available 12/12/2022 2582 RxNorm Not Available [facility] 3 04:51:46 Medications Name Sig Start Date Stop Date Status Note LastModified by Organization Details LastModified Time amoxicillin 500 mg capsule TAKE 1 CAPSULE BY MOUTH EVERY 12 HOURS 05/01 completed Not Available Not Available Not Available azelastine 0.05 % eye drops INSTILL 1 DROP INTO BOTH EYES BY OPHTHALMI C ROUTE 2 TIMES PER DAY 07/24 /2023 completed Not Available Not Available Not Available clindamycin HCl 300 mg capsule TAKE 1 CAPSULE BY MOUTH EVERY 8 HOURS 05/01 completed Not Available Not Available Not Available azithromyci n 250 mg tablet TAKE 2 TABLETS BY MOUTH TODAY, THEN TAKE 1 TABLET DAILY FOR 4 DAYS 02/07 completed Not Available Not Available Not Available benzonatate 200 mg capsule TAKE 1 CAPSULE BY MOUTH THREE TIMES A DAY NEEDED active Not Available Not Available No t Available hydrocodone 5 mg-acetamin ophen 325 mg tablet TAKE 1 TABLET BY MOUTH EVERY 12 HOURS NEEDED FOR PAIN 05/01 completed Not Available Not Available Not Available famotidine 40 mg tablet TAKE 1 TABLET EVERY DAY BY ORAL ROUTE IN THE MORNING. 02/08 completed Not Available Not Available Not Available prednisone 20 mg tablet TAKE 2 TABLET BY MOUTH EVERY DAY FOR 5 DAYS 05/06 completed Not Available Not Available Not Available phentermine 15 mg capsule TAKE 1 CAPSULE BY MOUTH EVERY DAY active Not Available Not Available No t Available Zyrtec 10 mg tablet Take 1 tablet every day by oral route. 2018 active Not Available Not Available Not Avai lable levothyroxi ne 25 mcg tablet Please specify direction s, refills and quantity 05/04 completed Not Available Not Available Not Available benzonatate 100 mg capsule TAKE 1 CAPSULE BY MOUTH EVERY 8 HOURS NEEDED 12/24 completed Not Available Not Available Not Available cyanocobala min (vit B-12) 1,000 mcg/mL injection solution INJECT 1 ML EVERY WEEK BY SUBCUTANE OUS ROUTE IN THE MORNING FOR 90 DAYS. active Not Available Not Available No t Available prednisone 50 mg tablet TAKE 1 TABLET BY MOUTH EVERY DAY FOR 5 DAYS 05/01 completed Not Available Not Available Not Available Synthroid 50 mcg tablet one tablet daily 05/04 completed Not Available Not Available Not Available montelukast 10 mg tablet TAKE 1 TABLET BY MOUTH EVERY DAY NEEDED 05/04 completed Not Available Not Available Not Available codeine 10 mg-guaifene sin 100 mg/5 mL oral liquid TAKE 10 ML BY MOUTH EVERY 4 HOURS 12/24 completed Not Available Not Available Not Available levofloxaci n 500 mg tablet TAKE 1 TABLET BY MOUTH EVERY DAY active Not Available Not Available No t Available methylpredn isolone 4 mg tablets in a dose pack TAKE 6 TABLETS ON DAY 1 DIRECTED ON PACKAGE AND DECREASE BY 1 TAB EACH DAY FOR A TOTAL OF 6 DAYS 12/24 completed Not Available Not Available Not Available metformin ER 500 mg tablet,exte nded release 24 hr TAKE 1 TABLET BY MOUTH TWICE A DAY WITH MEALS active Not Available Not Available No t Available doxycycline hyclate 100 mg tablet TK 1 T PO Q 12 H FOR 7 DAYS 09/17 completed Not Available Not Available Not Available spironolact one 50 mg tablet TAKE 2 TABLETS BY MOUTH EVERY MORNING active Not Available Not Available No t Available amoxicillin 875 mg-potassiu m clavulanate 125 mg tablet TAKE 1 TABLET BY MOUTH EVERY 12 HOURS active Not Available Not Available No t Available Ventolin HFA 90 mcg/actuati on aerosol inhaler INHALE 2 PUFFS BY MOUTH EVERY 4 HOURS NEEDED 12/24 completed Not Available Not Available Not Available tobramycin 0.3 %-dexametha sone 0.1 % eye drops,suspe nsion INSTILL 1 DROP INTO AFFECTED EYE(S) BY OPHTHALMI C ROUTE EVERY 6 HOURS 05/04 completed Not Available Not Available Not Available escitalopra m 10 mg tablet TAKE 1 TABLET BY MOUTH EVERY DAY active Not Available Not Available No t Available Vigamox 0.5 % eye drops INSTILL 1 DROP INTO AFFECTED EYE(S) BY OPHTHALMI C ROUTE 3 TIMES PER DAY 05/04 completed Not Available Not Available Not Available Premarin 0.3 mg tablet TAKE 1 TABLET BY MOUTH EVERY DAY IN THE MORNING 06/21 completed Not Available Not Available Not Available Premarin 0.625 mg tablet TAKE 1 TABLET BY MOUTH EVERY DAY IN THE MORNING active Not Available Not Available No t Available Zyrtec 01/20 completed Not Available Not Available Not Available metformin ER 500 mg 24 hr tablet,exte nded release (gastric retention) Take 1 tablet every day by oral route. 11/06 completed Not Available Not Available Not Available Xyzal 01/27 completed Not Available Not Available Not Available Tirosint 50 mcg capsule TAKE ONE CAPSULE BY MOUTH EVERY MORNING active Not Available Not Available No t Available Tirosint 25 mcg capsule TAKE 1 CAPSULE BY MOUTH EVERY DAY IN THE MORNING 05/04 completed Not Available Not Available Not Available BD Insulin Syringe Ultra-Fine 1 mL 31 gauge x 5/16 INJECT 1ml of B12 SUBCUTANE OUSLY ONCE WEEKLY 2023 active Not Available Not Available Not Avai lable COVID-19 test specimen collection TEST DIRECTED 02/07 completed Not Available Not Available Not Available Vitals Date Recorded Body height Body mass index (BMI) Body weight Body temperature Respiratory rate Heart rate Systolic And Diastolic Provider Name and Address Organization Details Last Updated DateTime 3 152.4 cm 31.2 kg/m2 99179.0 6 g 97.3 [degF] 18 /min 95 /min 130/84 mm[Hg] Rosibel Burnette [place] [employer] [facility] [employer] [place] 3 09:44:15 Date Recorded Body height Body mass index (BMI) Body weight Systolic And Diastolic Provider Name and Address Organization Details Last Updated DateTime 04/12/2023 152.4 cm 32 kg/m2 59569.71 g 122/79 mm[Hg] RONY Méndez [place] [employer] [facility] [employer] [place] 04/12/2023 10:04:23 Date Recorded Systolic And Diastolic Provider Name and Address Organization Details Last Updated DateTime 05/07/2023 110/80 mm[Hg] VALERIANO Altamirano [address] [place] [address], [address], [place] [employer] [facility] [employer] [place] 05/07/2023 09:53:40 Date Recorded Body height Body mass index (BMI) Body weight Body temperature Heart rate Oxygen saturation Oxygen saturation in Arterial blood by Pulse oximetry Systolic And Diastolic Provider Name and Address Organization Details Last Updated DateTime 3 152.4 cm 32 kg/m2 87197.1 5 g 97.6 [degF] 94 /min 99 % 99 % 140/88 mm[Hg] Yudy Seals RN [facility] [employer] [place] 09:28:13 Date Recorded Body height Body mass index (BMI) Body weight Systolic And Diastolic Provider Name and Address Organization Details Last Updated DateTime 05/09/2023 152.4 cm 32.3 kg/m2 14573.46 g 124/82 mm[Hg] Alberta Finley RN [facility] [employer] [place] 05/09/2023 09:29:14 Date Recorded Body height Body mass index (BMI) Body weight Body temperature Heart rate Oxygen saturation Oxygen saturation in Arterial blood by Pulse oximetry Systolic And Diastolic Provider Name and Address Organization Details Last Updated DateTime 3 152.4 cm 32.4 kg/m2 10694.3 3 g 97.2 [degF] 97 /min 99 % 99 % 116/76 mm[Hg] Yudy Seals RN [facility] [employer] [place] 3 15:24:47 Social History Question Answer Notes LastModified by Organizat ion Details LastModified Time Tobacco Smoking Status Never 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 No Information not available 05/09/2023 What Is Your Level Of Caffeine Consumption? Moderate [id number] Information not available 12/12/2022 How Much Tobacco Do You Chew? None [id number] Information not available 12/12/2022 In The 14 Days Before Symptom Onset, Have You Had Close Contact With A Laboratory-confirm ed COVID-19 While That Case Was Ill? No Information n ot available 05/09/2023 In The 14 Days Before Symptom Onset, Have You Had Close Contact With A Person Who Is Under Investigation For COVID-19 While That Person Was Ill? No Information not available 05/09/2023 Which Illicit Or Recreational Drugs Have You Used? None Information not available 05/09/2023 Have There Been Any Changes To Your Family Or Social Situation? No Information no t available 05/09/2023 Do You Use Insect Repellent Routinely? No Information not available 05/09/2023 What Is Your Relationship Status? [id number] Information not available 12/12/2022 Do You Use Your Seat Belt Or Car Seat Routinely? No Information not available 05/09/2023 Are You Sexually Active? No Information not available 05/09/2023 Do You Have Smoke And Carbon Monoxide Detectors In Your Home? Yes Information not available 05/09/2023 Do You Use Sunscreen Routinely? No Information not available 05/09/2023 Have You Recently Traveled Abroad? No Information not available 05/09/2023 Do You Have Any Dietary Restrictions? No Information not available 05/09/2023 Sex: Unknown Functional Status Question Answer Note LastModified by Organizat ion Details LastModified Time Do you use any illicit or recreational drugs? No Information not available 05/09/2023 Do you or have you ever used any other forms of tobacco or nicotine? No Information not available 05/09/2023 What is your level of alcohol consumption? Occasional [id number] Information not available 12/12/2022 Do you or have you ever used smokeless tobacco? Never used smokeless tobacco [id number] Information not available 12/12/2022 Are you currently employed? No Information not available 05/09/2023 Mental Status Question Answer Note LastModified by Organization D etails LastModified Time Do you feel stressed (tense, restless, nervous, or anxious, or unable to sleep at night)? [id number] Information not available 05/09/2023 Family History Relationship Description Onset Age of this Age Resolved Age Notes LastModified by Organization Details LastModified Time Father No current problems or disability [id number] Not available 12/12/2022 04:41:00 Father General health good [id number] Not available 12/12/2022 04:41:00 Mother No current problems or disability [id number] Not available 12/12/2022 04:41:01 Medical History Condition Response HYPOTHYROIDISM Y HAVE YOU BEEN HOSPITALIZED OR SEEN IN [facility] ER IN THE PAST YEAR ? Y Gynecological HistoryNo gynecological history recorded. Obstetrics History GPAL:G 0 P 0 0 0 0 Past Encounters Encounter ID Performer Location Encounter Start Date Encounter Closed Date Diagnosis/Indication Diagnosis SNOMED-CT Code Diagnosis ICD10 Code Diagnosis Note [id number] Raya Calix MD [facility] [place] [address] [place] [address] 01/20/2021 00:00:00 01/20/2021 13:22:[id number] [facility] [place] [address] [place] [address] 05/04/2021 00:00:00 05/04/2021 16:16:19 [id number] [facility] [place] [address] [place] [address] 05/05/2021 00:00:00 05/05/2021 10:01:19 [id number] Raya Calix MD [facility] [place] [address] [place] [address] 08/14/2021 00:00:00 08/14/2021 10:43:32 [id number] VALERIANO Altamirano [facility] [place] [address] [place] [address] 09/21/2021 00:00:00 10/12/2021 14:41:26 [id number] [address]a [address] [facility] [place] [address] [place] [address] 02/08/2022 00:00:00 02/08/2022 21:11:[id number] [facility] [place] [address] [place] [address] 05/01/2022 00:00:00 05/02/2022 09:50:52 [id number] [facility] [place] [address] [place] [address] 05/04/2022 00:00:00 05/07/2022 15:56:28 [id number] VALERIANO Altamirano [facility] [place] [address] [place] [address] 11/07/2022 00:00:00 11/13/2022 13:57:[id number] [facility] [place] [address] [place] [address] 11/27/2022 00:00:00 11/27/2022 11:04:40 [id number] [facility] [place] [address] [place] [address] 01/22/2023 10:12:43 01/22/2023 11:40:11 Blood pressure taking 15436155 Z01.30 Patient blood pressure in ideal range and she continues to lose weight on phentermin e and tolerating therapy well. Will continue current regimen. [id number] VALERIANO Altamirano [facility] [place] [address] [place] [address] 02/15/2023 13:51:26 02/15/2023 14:16:44 Acute sinusitis 90516590 J01.90 start augmentin course and prednisone 40mg daily x 5 days [id number] Raya Calix MD [facility] [place] [address] [place] [address] 02/25/2023 09:33:48 02/25/2023 09:50:17 Weight gain 9087295 R63.5 Patient tolerating phentermin e well and he has maintained her weight loss. Her blood pressure remains in normal range. Continue therapy for now. [id number] Raya Calix MD [facility] [place] [address] [place] [address] 04/12/2023 09:25:26 04/12/2023 10:10:59 Blood pressure taking 04417638 Z01.30 Patient blood pressure in ideal range and she continues to lose weight on phentermin e and tolerating therapy well. Will continue current regimen. [id number] VALERIANO Altamirano [facility] [place] [address] [place] [address] 05/07/2023 09:21:02 05/07/2023 09:55:50 Adult health examination 005418649 Z00.00 well exam completed. most labs have been ordered by endocrine; we will add CBC lab Hypothyroidism 60670732 E03.9 managed by Endocrine; Tirosint therapy. 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 Long-term drug therapy 539447022 Z79.899 [id number] Raya Calix MD [facility] [place] [address] [place] [address] 05/09/2023 09:22:50 05/09/2023 10:11:07 Blood pressure taking 29087035 Z01.30 Patient blood pressure in ideal range and she continues to lose weight on phentermin e and tolerating therapy well. Will continue current regimen. [id number] VALERIANO Altamirano [facility] [place] [address] [place] [address] 06/21/2023 14:46:39 06/21/2023 16:07:01 Syncope 487030387 R55 check MRI brain w/wo contrast and complete echo doppler Pituitary adenoma 254591 000 D35.2 see above MRI brain w/wo contrast to check sizing on remote hx of pituitary adenoma. Health Concerns Section Related Observation LastModified by Organization Detai ls LastModified Time None Recorded Concern Status LastModified by Organization Details LastModified Time None Recorded Advance Directives Directive None Recorded Payers Encounter Date Sequence Insurance Name Policy Number Policy Azul Covered Member ID Azul Member ID Guarantor Name 02/25/2023 1 [employer] [employer] [employer] [id number] José Manuel Umaña [id number] Fany Umaña 04/12/2023 1 [employer] [employer] [id number] José Manuel Umaña [id number] Fany Umaña 05/07/2023 1 [employer] [employer] [id number] José Manuel Umaña [id number] Fany Umaña 05/09/2023 1 [employer] [employer] [id number] José Manuel Umaña [id number] Fany Umaña 06/21/2023 1 [employer] [employer] [id number] José Manuel Umaña [id number] Fany Umaña Notes Date Note Type Note Provider Name and Address Organization Details Recorded Time 02/25/2023 text/html 52 yo female com es in for nurse visit for blood pressure testing to continue therapy on phentermine; to assure her levels are in range. she has good focus and energy on phentermine for known hx of hypothyroidism. Raya Calix MD [address] [place] [address], [facility] [address], [place], [address], [place] [facility] [place] [employer] [place] 02/25/2023 12:36:49 04/12/2023 text/html 53 yo female com es in for blood pressure testing for continued use of phentermine as she has had significant weight loss and improvement in mentation. Raya Calix MD [address] [employer] [place], [address], [place] 04/12/2023 17:16:41 05/07/2023 text/html Anxiety/Depressi onRepo rted bypatient.Quality:does not matter time of day Severity:denies suicidal ideations; able to maintain relationships; does not interfere with activities of daily living Context:no major life stressors Associated Symptoms:denies homicidal ideations; no significant weight gain; no significant weight loss; no visual/auditory hallucinations; no delusions; no shortness of breath wellness VALERIANO Altamirano [address] [employer] [facility] [place], [address], [place] 05/11/2023 22:08:40 05/09/2023 text/html 53 yo female com es in for blood pressure reading for continued use of phentermine in management of weight and energy. Raya Calix MD [address] [employer], [place], [address], [place] 05/09/2023 21:09:09 06/21/2023 text/html Generic HPI TemplateReported bypatient.Context:sitt ing at a table and passed out while at dinner. she had been eating chips and salsa and only had a small beverage. she felt weird and hot and tunnel vision started and she then passed out . She was caught and didn't hit ground. no loss of bowel or bladder. no confusion. no witnessed seizure activity.Notes:here for c/o one episode of passing out VALERIANO Altamirano [address] [employer], [place], [address], [place] 07/11/2023 22:13:44 OBGyn Episode No OBEpisode recorded.
--- OUTSIDE RECORDS SUMMARY | 2025-03-08 11:39 | XMS_ITS ---
Author Organization [employer] [facility] Address [address] [place] [address] Care Team Providers Care Plant Wire Chief Name Role Phone Raya Calix Primary Care Provider REASON FOR VISIT lab follow up Encounters Encounter Location Date Provider Diagnosis [facility] - Raya Calix [address] [place] [address] 02/25/2025 Raya Calix Plan Of Treatment No Information Progress Notes * KODYNeelamaDOB:1970 ([age] yo F)Acc No.[id number]:02/25/2025 Progress Notes Patient: Fany BOWER Provider: Vandana Calix MD :1970 A ge:54 Y S ex:Female Date:02/25/2025 Phone: Address:[address] [place], [place] [id number] Subjective: * Chief Complaints: * 1 . Lab follow up. * Medical History: Objective: * Vitals: Assessment: Plan: * Treatment: * Billing Information: * Visit Code: * Procedure Codes: * Electronic signature of Deniz Calix MD on 03/08/2025 at 11:39 AM CDT Sign off status: Pending * Provider: Vandana Calix MD Date: 02/25/2025 Generated for Mohini west/Nichelle/eTransmitting on: 03/08/2025 11:39 AM CDT
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
--- OUTSIDE RECORDS SUMMARY | 2025-03-08 11:40 | XMS_ITS | Patient Health Record ---
Author Organization [employer] [facility] Address [address] [address] Care Team Providers Care Special Service Representative Name Role Phone Raya Calix Primary Care Provider Migration, Provider Unavailable Unavailable Allergies No Known Allergies Results Component Value Reference Range Notes COMPREHENSIVE METABOLIC PANE L Reviewed date:04/26/2024 06:55:18 PM Interpretation: Performing Lab:[facility], [address] [place], [address] Arya Mendez Notes/Report: FASTING:YES FASTING: YES VITAMIN D, 25-HYDROXY, LC/MS /MS Reviewed date:04/26/2024 06:54:44 PM Interpretation: Performing Lab:JATIND[facility], [address] [place], [address] Arya Mendez MD Notes/Report: FASTING:YES FASTING: YES T3, FREE Reviewed date:04/26/2024 06:55:36 PM Interpretation: Performing Lab:[facility], [address], [place], [address] Arya Mendez MD Notes/Report: FASTING:YES FASTING: YES ESTRADIOL Reviewed date:04/26/2024 06:55:57 PM Interpretation: Performing Lab:[facility], [address] [place], [address] Arya Mendez Notes/Report: FASTING:YES FASTING: YES HEMOGLOBIN A1c Reviewed date:04/26/2024 06:53:25 PM Interpretation: Performing Lab:REBEKAH [facility] [place], [address] [place], [address] Arya Mendez Notes/Report: FASTING:YES FASTING: YES CBC (INCLUDES DIFF/PLT) Reviewed date:04/26/2024 06:55:28 PM Interpretation: Performing Lab:Richy WELCH [facility], [address] [place], [address] Arya Mendez Notes/Report: FASTING:YES FASTING: YES PROGESTERONE Reviewed date:04/26/2024 06:55:44 PM Interpretation: Performing Lab:Richy WELCH [facility], [address] [place], [address] Arya Mendez Notes/Report: FASTING:YES FASTING: YES T4, FREE Reviewed date:04/26/2024 06:54:51 PM Interpretation: Performing Lab:[facility]y [facility], [address] [place], [address] Arya Mendez MD Notes/Report: FASTING:YES FASTING: YES TSH Reviewed date:04/26/2024 06:55:50 PM Interpretation: Performing Lab:[facility], [address] [place], [address] Arya Mendez Notes/Report: FASTING:YES FASTING: YES VITAMIN B12 Reviewed date:04/26/2024 06:54:59 PM Interpretation: Performing Lab:[facility], [address] [place], [address] Arya Mendez MD Notes/Report: FASTING:YES FASTING: YES COMPREHENSIVE METABOLIC PANE L Reviewed date:08/13/2024 08:21:38 PM Interpretation: Performing Lab:[facility], [address] [place], [address] Arya Mendez Notes/Report: FASTING:YES FASTING: YES T3, FREE Reviewed date:08/13/2024 08:22:18 PM Interpretation: Performing Lab:[facility], [address] [place], [address] Arya Mendez MD Notes/Report: FASTING:YES FASTING: YES HEMOGLOBIN A1c Reviewed date:08/13/2024 08:22:39 PM Interpretation: Performing Lab:Richy WELCH [facility], [address] [place], [address] [facility] Notes/Report: FASTING:YES FASTING: YES CBC (INCLUDES DIFF/PLT) Reviewed date:08/13/2024 08:21:59 PM Interpretation: Performing Lab:[facility], [address] [place], [address] [facility] Notes/Report: FASTING:YES FASTING: YES LIPID PANEL Reviewed date:08/13/2024 08:15:33 PM Interpretation: Performing Lab:[facility], [address] [place], [address] [facility] Notes/Report: FASTING:YES FASTING: YES T4, FREE Reviewed date:08/13/2024 08:22:25 PM Interpretation: Performing Lab:[facility], [address] [place], [address] [facility] Notes/Report: FASTING:YES FASTING: YES TSH Reviewed date:08/13/2024 08:22:32 PM Interpretation: Performing Lab:[facility], [address] [place], [address] [facility] Notes/Report: FASTING:YES FASTING: YES TESTOSTERONE, FREE (DIALYSIS ) AND TOTAL,MS Reviewed date:08/20/2024 09:55:20 PM Interpretation: Performing Lab:[facility]jorie [facility], [address] [place] [address], [address], [place], [address] Henrietta Anderson MD,PhD Notes/Report: FASTING:YES FASTING: YES TESTOSTERONE, TOTAL, MS 6 2-45 ng/dL For additional information, please refer to https://education.Reading Room.com/faq/CPO524 (This link is being provided for informational/educational purposes only.) (Note) This test was developed and its analytical performance characteristics have been determined by [employer]. It has not been cleared or approved by the FDA. This assay has been validated pursuant to the CLIA regulations and is used for clinical purposes. TESTOSTERONE, FREE 0.9 0.1-6.4 pg/mL (Note) This test was developed and its analytical performance characteristics have been determined by [employer]. It has not been cleared or approved by the FDA. This assay has been validated pursuant to the CLIA regulations and is used for clinical purposes. MD [facility] [address] [address],[address] [place] [address] Henrietta Anderson MD, PhD Reason For Referral No Information Medications Medication SIG (Take, Route, Frequency, Duration) Notes Start Date End Date Status Cyanocobalamin 1000 MCG/ML INJECT 1 ML EVERY WEEK BY SUBCUTANEOUS ROUTE IN THE MORNING FOR 90 DAYS. for 90 Days Active Tirosint 50 MCG (0.05 MG) TAKE ONE CAPSULE BY MOUTH EVERY MORNING for 90 DAYS *Please review and pick correct strength-formulat ion from [employer] options. If intended option is not shown, discontinue and re-order from Quick Search* Active Phentermine HCl 15 MG 1 capsule Orally Once a day for 90 days 10/14/2024 Active Linzess 72 MCG 1 cap(s) orally once a day for 90 days 08/27/2024 Active Phentermine HCl 15 MG 1 cap(s) orally on ce a day (in the morning) 01/30/2024 Active metFORMIN HCl ER 500 MG TAKE 1 TABLET BY MOUTH ONCE DAILY WITH DINNER FOR 90 DAYS for 90 Active Estradiol 10 MCG 1 TAB(S) INTRAVAGINALLY 2 TIMES A WEEK for 90 DAYS *Please review and pick correct strength-formulat ion from [employer] options. If intended option is not shown, discontinue and re-order from Quick Search* 05/25/2024 Active Spironolactone 50 MG 2 tabs orally daily for 90 days 04/30/2024 Active Problems Problem Type SNOMED Code ICD Code Onset Dates Problem Status W/U Status Risk Notes Problem Vitamin D deficiency (48322831) Vitamin D deficiency, unspecified (E55.9) Active confirmed Problem Hypothyroidism (85353918) Hypothyroidism, unspecified (E03.9) Active confirmed Problem Obesity (178089679) Obesity, unspecified (E66.9) Active confirmed Problem Menopause (575873640) Menopausal and female climacteric states (N95.1) Active confirmed Problem Unspecified menopausal and perimenopausal disorder (N95.9) Active confirmed Problem Chronic idiopathic constipation (16162205) Chronic idiopathic constipation (K59.04) Active confirmed Vital Signs Heart Rate 80 /min 08/27/2024 Blood pressure diastolic 83 mm Hg 08/27/2024 Height 60 in 08/27/2024 Blood pressure systolic 127 mm Hg 08/27/2024 Weight 159.4 lbs 08/27/2024 BMI 31.13 kg/m2 08/27/2024 Encounters Encounter Location Date Provider Diagnosis [facility] - Raya Calix [address] [place] [address] 04/30/2024 Raya Calix Hypothyroidism, unspecified E03.9 ; Encounter for screening for lipoid disorders Z13.220 ; Impaired fasting glucose R73.01 and Menopausal and female climacteric states N95.1 [facility] - Rayalan Calix [address] [place] [address] 08/27/2024 Raya Calix Hypothyroidism, unspecified E03.9 ; Menopausal and female climacteric states N95.1 ; Other fatigue R53.83 ; Vitamin D deficiency, unspecified E55.9 ; Chronic idiopathic constipation K59.04 ; Impaired fasting glucose R73.01 ; Encounter for screening for lipoid disorders Z13.220 and Obesity, unspecified E66.9 [facility] - Raya Calix [address] [place] [address] 02/25/20[address] Ray[address] Cal[address] [address] 08/29/2024 Provider Migration Chronic idiopathic constipation K59.04 [facility] [address] [place] [address] 03/25/2024 Raya Calix [facility] [address] [place] [address] 04/28/2024 Raya [facility], [facility] - Raya Calix [address] [place] [address] 05/25/2024 Raya Calix Unspecified menopaus al and perimenopausal disorder N95.9 [facility], [facility] - Raya Calix [address] [place] [address] 05/26/2024 Raya VALDOVINOS [facility], [facility] - Raya Calix [address] [place] [address] 05/28/2024 Raya VALDOVINOS [facility], [facility] - Raya Calix [address] [place] [address] 08/26/2024 Raya Calix [facility] [address] [place] [address] 08/31/2024 Raya Calix [facility] [address] [place] [address] 10/14/2024 Raya Calix Obesity, unspecified E66.9 Assessments Encounter Date Diagnosis (ICD Code) Assessment Notes Treatment Notes Treatment Clinical Notes Section Notes 04/30/2024 Hypothyroidism, unspecified (ICD-10 - E03.9) Continue tirosint 50 mcg daily- refill per request. TSH and FT4 in ideal range. 04/30/2024 Encounter for screening for lipoid disorders (ICD-10 - Z13.220) Send for lipid panel to assess control. 08/27/2024 Hypothyroidism, unspecified (ICD-10 - E03.9) 08/27/2024 Menopausal and female climacteric states (ICD-10 - N95.1) 05/25/2024 Unspecified menopausal and perimenopausal disorder (ICD-10 - N95.9) 10/14/2024 Obesity, unspecified (ICD-10 - E66.9) 04/30/2024 Impaired fasting glucose (ICD-10 - R73.01) Continue metformin ER 500 mg daily along with spironolactone 100 mg daily for hx of PCOS-well controlled. Recommended she incorporate natural insulin sensitizers such as pears, apples, cinnamon, fercho and sweet potatoes to help mobilize her endogenous insulin. Recommended up to 150 minutes of moderate level activity /exercise per week. 08/27/2024 Other fatigue (ICD-10 - R53.83) 04/30/2024 Menopausal and female climacteric states (ICD-10 - N95.1) Continue on estriol cream topical and vaginal as she is tolerating well and has no SEs. Her hot flashes are overall controlled. 08/27/2024 Vitamin D deficiency, unspecified (ICD-10 - E55.9) 08/27/2024 Chronic idiopathic constipation (ICD-10 - K59.04) 08/29/2024 Chronic idiopathic constipation (ICD-10 - K59.04) 08/27/2024 Impaired fasting glucose (ICD-10 - R73.01) 08/27/2024 Encounter for screening for lipoid disorders (ICD-10 - Z13.220) 08/27/2024 Obesity, unspecified (ICD-10 - E66.9) 04/30/2024 Other Spent 25 minute s preparing to see the patient (ex review of tests/chart), obtaining and / or reviewing separately obtained history, performing a medically appropriate examination and/or evaluation, counseling and educating the patient/family/car egiver, ordering medications, tests, or procedures, referring and communicating with other health congregational care pastor, documenting clinical information in the electronic or other health record, independently interpreting results and communicating results to the patient/family/car egiver and care coordinating patient plan. Patient alert and oriented x 4 and aware of discussion noted above and in agreeance to plan in management of impaired glucose, hormone function/balance and hypothyroidism. 08/27/2024 Other Assessment and Plan: 1. Hypothyroidism- Thyroid numbers are within normal range on 50 mcg of Tirosint.- Continue current medication and monitor thyroid levels at follow-up visits. 2. Prediabetes- Fasting glucose: 77 mg/dL, A1c: 5.6%, postprandial glucose: high 150s-160s.- Patient is not taking metformin regularly, only at bedtime.- Continue metformin and encourage regular use. Reevaluate at follow-up visit. 3. Constipation- Bowel movements once a week, causing stomach pain.- Previously tried Linzess, but insurance issues.- Plan to start Linzess at a lower dose using GoodRx coupon. Monitor response and adjust as needed. 4. Weight management- Current weight: 156 pounds, goal BMI: 22-24.- Consider Zepbound for weight loss if constipation improves and she desires further weight management assistance.- If Zepbound is approved, continue metformin for a month before tapering off. 5. Preventive care- Mammograms and pap smears are up-to-date and clear.- Last colonoscopy was two years ago; due for another in 1-3 years based on family history of colon cancer. 6. Energy levels- Decreased energy levels, possibly due to stress.- Monitor and address any underlying causes at follow-up visits. Follow-up:- Schedule a follow-up appointment in 3-4 months or 6 months if she is doing well.- Monitor weight, thyroid levels, glucose levels, and constipation management.- Discuss any additional concerns or treatment options as needed. Spent 25 minutes preparing to see the patient (ex review of tests/chart), obtaining and / or reviewing separately obtained history, performing a medically appropriate examination and/or evaluation, counseling and educating the patient/family/car egiver, ordering medications, tests, or procedures, referring and communicating with other health congregational care pastor, documenting clinical information in the electronic or other health record, independently interpreting results and communicating results to the patient/family/car egiver and care coordinating patient plan. Patient alert and oriented x 4 and aware of discussion noted above and in agreeance to plan in management of hypothyroidism, menopausal changes, fatigue, impaired fasting glucose, weight management/obesity and chronic constipation. Plan Of Treatment No Information Insurance Providers Payer Name Payer Address Payer Phone Subscriber Number Group Number Insured Name Patient Relationship to Insured Coverage Start Date Coverage End Date [facility] [address] [address] [place] [id number] Fany Umaña Self - patient is the insured Medical (General) History Medical History History ICD Code asthma thyroid disease
--- OUTSIDE RECORDS SUMMARY | 2025-03-08 11:40 | XMS_ITS ---
Author Organization [employer] [facility] Address [address] [place] [address] Care Team Providers Care Substation Electrician Name Role Phone Raya Calix Primary Care Provider REASON FOR VISIT Med Check Encounters Encounter Location Date Provider Diagnosis [facility], [facility] - Raya Calix [address] [place] [address] 09/03/2024 Raya Calix Plan Of Treatment No Information Progress Notes * KODYNeelamaDOB:1970 ([age] yo F)Acc No.[id number]:09/03/2024 Progress Notes Patient: Fany BOWER Provider: Vanadna Calix MD :1970 A ge:54 Y S ex:Female Date:09/03/2024 Phone: Address:[address] [place], [place] [id number] Subjective: * Chief Complaints: * 1 . Med Check. * Medical History: Objective: * Vitals: Assessment: Plan: * Treatment: * Billing Information: * Visit Code: * Procedure Codes: * Electronic signature of Deniz Calix MD on 03/08/2025 at 11:39 AM CDT Sign off status: Pending * Provider: Vandana Calix MD Date: 1 11/03/2023 Generated for Sali ng/Facamilog/eTransmitting on: 0 03/08/2025 11:39 AM CDT
[2025-03-08 11:47] VITALS: BP 125/80; PULSE 80; RESP 14; TEMP 36.6; O2SAT 100
[2025-03-08 13:01] VITALS: BP 128/86; PULSE 86; RESP 16; O2SAT 100
--- OUTSIDE RECORDS SUMMARY | 2025-03-08 13:32 | XMS_ITS | Clinical Summary ---
Author Organization [facility] Address [address] [address] Care Team Providers Care Apiculturist Name Role Phone Brittani Savage Primary Care [...] 11/28/2023 Assessment & Plan (11/28/2023 3:55 PM MORNING SHOW PRODUCER): Continue HRT with premarin Vitamin B 12 deficiency 11/28/2023 Assessment & Plan (11/28/2023 3:55 PM MORNING SHOW PRODUCER): Update vit B12 levels Recommendations to follow Obesity due to excess calories without serious c omorbidity 11/28/2023 Assessment & Plan (11/28/2023 3:57 PM MORNING SHOW PRODUCER): Diet and exercise Continue Phentermine Hypothyroidism 02/27/2014 Overview (01/17/2017): HYPOTHYROIDISM NOS Assessment & Plan (11/28/2023 3:54 PM MORNING SHOW PRODUCER): Chronic, stable Will update TFTs If needed, [...] on file Legal Sex Female 7:59 AM MORNING SHOW PRODUCER Gender Identity Not on file Sexual Orientation Not on file Obstetrics History Last Filed Vital Signs Vital Sign Reading Time Taken Comments Blood Pressure 130/70 11/28/2023 1:29 PM MORNING SHOW PRODUCER Pulse 67 11/28/2023 1:29 PM MORNING SHOW PRODUCER Temperature - - Respiratory Rate 16 11/28/2023 1:29 PM MORNING SHOW PRODUCER Oxygen Saturation 97% 08/16/2014 3:29 PM MORNING SHOW PRODUCER Inhaled Oxygen Concentration - - Weight 74.3 kg (163 lb 11.2 oz) 11/28/2023 1:29 PM MORNING SHOW PRODUCER Height 152.4 cm (5') 11/28/2023 1:29 PM MORNING SHOW PRODUCER Body Mass Index 31.97 11/28/2023 1:29 PM MORNING SHOW PRODUCER Plan of Treatment Health Maintenance Due Date [...] be contacted by letter. Afshan Head M.D. [facility]/[place]:06/25/2016 14:20:16 letter sent: Normal Exam Mammogram BI-RADS: 1 Negative Radiologist: AFSHAN HEAD M.D. Attending: PRADIP RIOS M.D. Requesting: PRADIP RIOS M.D. Requesting Requesting ID: [id number] Attending Attending ID: [id number] Completed Time: 06/21/2016 12:30 AM Dictated Time: [...] HEAD M.D. Attending: PRADIP RIOS M.D. Requesting: PRAIDP RIOS M.D. Requesting Requesting ID: [id number] Attending Attending ID: [id number] Completed Time: 06/21/2016 12:30 AM Dictated Time: [...] Report To 3 FAX: NextGen Order #: [facility] Provider MD THURMAN MAMMO PROCEDURES Bernice l Result from Last 3 Months or Most Recently Relevant to Health Maintenance Insurance [id number] [place], [place] [address]O [facility] CHO[facility] PL[facility] HMO/PPO Address: [address] [address] [place] [address] [facility] CHO[facility]US [facility] HMO/PPO Address: [address] [address] [place] [address] Care Teams Apiculturist Relationship Specialty Start Date End Date Brittani Savage PA PCP - General Physician Garage Laborer 11/28/23
--- OUTSIDE RECORDS SUMMARY | 2025-03-08 13:32 | XMS_ITS | Referral Summary ---
Author Organization [facility] Address [address] [address] Care Team Providers Care Sample Display Preparer Name Role Phone Brittani Savage Primary Care [...] 11/28/2023 Assessment & Plan (11/28/2023 3:55 PM GLUE MILL OPERATOR): Continue HRT with premarin Vitamin B 12 deficiency 11/28/2023 Assessment & Plan (11/28/2023 3:55 PM GLUE MILL OPERATOR): Update vit B12 levels Recommendations to follow Obesity due to excess calories without serious c omorbidity 11/28/2023 Assessment & Plan (11/28/2023 3:57 PM GLUE MILL OPERATOR): Diet and exercise Continue Phentermine Hypothyroidism 02/27/2014 Overview (01/17/2017): HYPOTHYROIDISM NOS Assessment & Plan (11/28/2023 3:54 PM GLUE MILL OPERATOR): Chronic, stable Will update TFTs If [...] on file Legal Sex Female 7:59 AM GLUE MILL OPERATOR Gender Identity Not on file Sexual Orientation Not on file Last Filed Vital Signs Vital Sign Reading Time Taken Comments Blood Pressure 130/70 11/28/2023 1:29 PM GLUE MILL OPERATOR Pulse 67 11/28/2023 1:29 PM GLUE MILL OPERATOR Temperature - - Respiratory Rate 16 11/28/2023 1:29 PM GLUE MILL OPERATOR Oxygen Saturation 97% 08/16/2014 3:29 PM GLUE MILL OPERATOR Inhaled Oxygen Concentration - - Weight 74.3 kg (163 lb 11.2 oz) 11/28/2023 1:29 PM GLUE MILL OPERATOR Height 152.4 cm (5') 11/28/2023 1:29 PM GLUE MILL OPERATOR Body Mass Index 31.97 11/28/2023 1:29 PM GLUE MILL OPERATOR Plan of Treatment Not on file [...] be contacted by letter. Afshan Head M.D. [facility]/[place]:06/25/2016 14:20:16 letter sent: Normal Exam Mammogram BI-RADS: 1 Negative Radiologist: AFSHAN HEAD M.D. Attending: PRADIP RIOS M.D. Requesting: PRADIP RIOS M.D. Requesting Requesting ID: [id number] Attending Attending ID: [id number] Completed Time: 06/21/2016 12:30 AM Dictated Time: [...] Requesting: PRADIP RIOS M.D. Requesting Requesting ID: [id number] Attending Attending ID: [id number] Completed Time: 06/21/2016 12:30 AM Dictated Time: [...] Recently Relevant to Health Maintenance Insurance [employer] [facility] HMO [facility] CHOICE PLUS CHOICE PLUS Care Teams Sample Display Preparer Relationship Specialty Start Date End Date Brittani Savage PA PCP - General Physician Stenciler 11/28/23
--- NOTE | 2025-03-08 13:49 | ED_ITS ---
HPI - General Adult General Chief complaint: Headache Stated complaint: JEFFERSON - left side of head Time Seen by Provider: 03/08/25 13:27 History of Present Illness HPI narrative: 54-year-old female present to the emergency department for evaluation for a left-sided headache. Patient states that the headache started on Saturday night and has persisted. She states the headache started as a normal headache but then progressed to be focal behind the left eye. Patient reports some pain with range of motion of the eye but denies any change in vision. Patient does have history of seasonal allergies and has been taking her medications as directed. Patient denies any falls or injuries. Patient states his headache is unlike prior headaches. Related Data Home Medications ?Medication ?Instructions ?Recorded ?Confirmed ?Last Taken ?Type cetirizine 10 mg tablet (Zyrtec) 10 mg PO DAILY PRN allergies 02/05/22 03/08/25 03/06/22 History levothyroxine 50 mcg capsule 50 mcg PO DAILY 02/05/22 03/08/25 1 Day Ago History (Tirosint) ~09/18/22 metformin 500 mg tablet 500 mg PO DAILY 02/05/22 03/08/25 2 Days Ago History ~09/17/22 spironolactone 50 mg tablet 100 mg PO DAILY 02/05/22 03/08/25 1 Day Ago History ~09/18/22 cyanocobalamin (vitamin B-12) 1,000 mcg subcut WEEKLY 09/11/22 03/08/25 1 Day Ago History 1,000 mcg/mL injection solution ~09/18/22 azelastine 0.05 % eye drops drp 03/08/25 Unknown History epinephrine 0.3 mg/0.3 mL 03/08/25 Unknown History injection, auto-injector estradiol 0.5 mg tablet mg 03/08/25 Unknown History famotidine 40 mg tablet mg 03/08/25 Unknown History fluticasone propionate 50 intranasal 03/08/25 Unknown History mcg/actuation nasal spray,suspension montelukast 10 mg tablet mg 03/08/25 Unknown History phentermine 15 mg capsule mg 03/08/25 Unknown History progesterone micronized 200 mg mg 03/08/25 Unknown History capsule Allergies Allergy/AdvReac Type Severity Reaction Status Date / Time Cephalosporins Allergy Mild Rash Verified 03/08/25 11:38 cephalexin Allergy Unknown Hives Verified 03/08/25 11:38 Sulfa (Sulfonamide Allergy Unknown Hives Verified 03/08/25 11:38 Antibiotics) sulfamethizole Allergy Unknown Unknown Verified 03/08/25 11:38 trimethoprim Allergy Unknown Unknown Verified 03/08/25 11:38 clindamycin Allergy Other Verified 03/08/25 11:38 doxycycline AdvReac Mild H/A, Verified 03/08/25 11:38 nausea, dizziness Review of Systems Review of Systems: All systems reviewed & are unremarkable except as noted in HPI and below PMFSH Past Medical History Medical History Degenerative joint disease of knee Effusion of knee joint Diabetes type 2, controlled Asthma Hypothyroidism Constipation Hoarseness Wears glasses Dizziness Numbness and tingling of upper extremity Surgical History Surgical History History of knee surgery Left meniscus repair 01/08/[address] Aceves History of hysterectomy Family History Family History Mother Hypertension Other Asthma Carcinoma of colon Family history of arthritis Family history of lung disease Family history of malignant neoplasm Social History Social History Smoking status: Never smoker Alcohol intake: current Drinks per week: 2 Substance use: never Substance use type: does not use Living arrangements: with family Occupation/Education: occupation Gender identity (if verbalized by the patient): Female Sexual Orientation (if Verbalized by the Patient): Straight or Heterosexual Spiritual care concerns: No Exam Narrative: APPEARANCE: Uncomfortable appearing at time of initial evaluation HEAD: normocephalic, atraumatic. EYES: Pupils equal and reactive. Normal eye tracking. No conjunctival injection. No tenderness to palpation around the eye. No swelling of the eyelid. Normal fundus normal visual hanna for both eyes. NOSE: Normal no drainage NECK: Supple. No adenopathy, no masses. RESPIRATORY: Airway patent, respirations nonlabored. Clear to auscultation bilaterally, no rales, rhonchi, wheezing. CARDIOVASCULAR: Regular rate and rhythm without murmurs rubs or gallops. ABDOMINAL: Soft, nontender, nondistended, normal bowel sounds MUSCULOSKELETAL: Moves all extremities. Strength/ROM intact, No edema, No calf tenderness. NEURO: Alert. Cranial nerves II through XII intact. Grossly intact SKIN: Warm, dry. Normal Color Course Vital Signs Vital signs: Vital Signs Temperature 97.8 F 03/08/25 11:47 Pulse Rate 80 03/08/25 11:47 Respiratory Rate 14 03/08/25 11:47 Blood Pressure 125/80 03/08/25 11:47 Pulse Oximetry 100 03/08/25 11:47 Temperature 97.8 F 03/08/25 11:47 Pulse Rate 78 03/08/25 16:17 Respiratory Rate 15 03/08/25 16:17 Blood Pressure 108/68 03/08/25 16:17 Pulse Oximetry 99 03/08/25 16:17 Medical Decision Making MDM Narrative Medical decision making narrative: [age] old female presented emergency department for evaluation for left- sided facial pain so she behind the left eye. Patient was placed non-rebreather to treat for potential cluster headache and patient did have significant improvement. Patient was also treated with Compazine, Benadryl and IV Toradol. Patient did feel significant resolution of her symptoms. Patient had 15 mm of Hg for eye pressure bilaterally. Head CT was negative for acute intracranial abnormality. Suspect migraine versus his cluster headache. Patient and family updated the results of the workup. Patient was comfortable the plan with dis charge and close follow-up. Differential Diagnosis Differential Diagnosis: Migraine, headache, cluster headache, glaucoma, orbital cellulitis Vital Signs Vital Signs: Vital Signs Temperature 97.8 F 03/08/25 11:47 Pulse Rate 80 03/08/25 11:47 Respiratory Rate 14 03/08/25 11:47 Blood Pressure 125/80 03/08/25 11:47 Pulse Oximetry 100 03/08/25 11:47 Temperature 97.8 F 03/08/25 11:47 Pulse Rate 78 03/08/25 16:17 Respiratory Rate 15 03/08/25 16:17 Blood Pressure 108/68 03/08/25 16:17 Pulse Oximetry 99 03/08/25 16:17 Imaging Data Radiologist's impression: Impressions Head CT 03/08/25 14:39 IMPRESSION: No acute intracranial findings. Discharge Plan Discharge Clinical Impression: Cluster headache Patient Disposition: Home Condition: Stable Instructions: Antibiotic Form, Cluster Headache (ED) Additional Instructions: Tylenol and ibuprofen for pain control. Continue your allergy medications as directed. Have close follow-up with your primary care physician. If you have any worsening symptoms please call or return to the emergency department. Patient Language: Thai Prescriptions: No Action azelastine 0.05 % drops famotidine 40 mg tablet phentermine 15 mg capsule progesterone micronized 200 mg capsule montelukast 10 mg tablet estradiol 0.5 mg tablet epinephrine 0.3 mg/0.3 mL auto-injector fluticasone propionate 50 mcg/actuation spray,suspension INTRANASAL cetirizine [Zyrtec] 10 mg tablet 10 mg PO DAILY PRN (Reason: allergies) levothyroxine [Tirosint] 50 mcg capsule 50 mcg PO DAILY metformin 500 mg tablet 500 mg PO DAILY Rx Instructions: takes in evening spironolactone 50 mg tablet 100 mg PO DAILY Patient Comments: on provided med list cyanocobalamin (vitamin B-12) 1,000 mcg/mL solution 1,000 mcg subcut WEEKLY Follow-up/Referrals: Hussein,ROBB Peter [Primary Care Provider] -
[2025-03-08] MEDS: diphenhydrAMINE HCl INJ 50 MG/ML VIAL 25 MG IV PUSH (14:03)
[2025-03-08] MEDS: dexAMETHasone SOD PHOS INJ 10 MG/ML 1 ML VIAL IV PUSH (14:04)
[2025-03-08] MEDS: PROCHLORPERAZINE EDISYLATE 10 MG/2 ML VIAL IV PUSH (14:07)
[2025-03-08] MEDS: LACTATED RINGERS 1,000 ML 999 ML IV CONT (14:08)
[2025-03-08 14:30] VITALS: BP 109/63; PULSE 76; RESP 15; O2SAT 100
[2025-03-08] MEDS: KETOROLAC 15 MG/ML VIAL (*BKC) IV PUSH (15:12)
[2025-03-08 16:17] VITALS: BP 108/68; PULSE 78; RESP 15; O2SAT 99
== END 2025-03-08 16:18 | disposition home or self-care (01) ==
PROVIDERS: Emergency Provider Emergency Medicine; PCP Physician Assistant
DX: G44.009 Cluster headache syndrome, unspecified, not intractable (principal); J45.909 Unspecified asthma, uncomplicated; E11.9 Type 2 diabetes mellitus without complications; E03.9 Hypothyroidism, unspecified; M17.9 Osteoarthritis of knee, unspecified; Z90.710 Acquired absence of both cervix and uterus; Z79.84 Long term (current) use of oral hypoglycemic drugs; Z79.899 Other long term (current) drug therapy
CPT/HCPCS: 70450; 96361; 96374; 96375; 99284; J0780; J1100; J1200; J1885; J7120

== ENCOUNTER 2025-09-15 11:48 | Outpatient (CLI) | payer OTHER, SELFPAY ==
--- OUTSIDE RECORDS SUMMARY | 2024-04-23 04:30 | XMS_ITS ---
Author Organization [facility] Address [address], [place] [id number] Care Team Providers Care Milk Tester Name Role Phone Raya Calix Primary Care Provider REASON FOR VISIT Thyroid, menopause FU Encounters Encounter Location Date Provider Diagnosis [facility]MO Dr. Calix [address] [place] [phone] 04/23/2024 Raya Calix Plan Of Treatment Next Appt Details Provider Name:Raya Calix, 09:30:00 AM, [address] [place] [address], [phone], Progress Notes * Fadumo UMAÑAB:1970 ([age] yo F)Acc No.[id number]:04/23/2024 Progress Notes Patient: Fany Rivero Provider: Vandana Calix MD :1970 A ge:54 Y S ex:Female Date:04/23/2024 Phone: Address:[address] [place], [place] [phone] Subjective: * Chief Complaints: * T hyroid, menopause FU * Electronic signature of Deniz Calix MD on 09/15/2025 at 01:19 PM BLAST FURNACE OPERATOR Sign off status: Pending * Provider: Vandana Calix MD Date: 0 04/23/2024 Generated for Sali ng/Facamilog/eTransmitting on: 1 11/16/2024 01:19 PM BLAST FURNACE OPERATOR
--- OUTSIDE RECORDS SUMMARY | 2024-08-29 15:00 | XMS_ITS ---
Author Organization [facility] Address [address] [place], [place] [id number] Care Team Providers Care Grid Maker Name Role Phone Raya Calix Primary Care Provider [phone] Migration, Provider Unavailable Unavailable REASON FOR VISIT [facility] Encounter Medications Medication SIG (Take, Route, Frequency, Duration) Notes Start Date End Date Status Linzess 72 MCG Capsule 1 cap(s) orally once a day; Duration: 90 days 08/27/2024 Active Tirosint 50 MCG (0.05 MG) CAPSULE TAKE ONE CAPSULE BY MOUTH EVERY MORNING; Duration: 90 DAYS *Please review and pick correct strength-formulat ion from New Relic options. If intended option is not shown, discontinue and re-order from Quick Search* *Pick strength-form from [employer] Relic for eRX* Active Cyanocobalamin 1000 MCG/ML Solution INJECT 1 ML EVERY WEEK BY SUBCUTANEOUS ROUTE IN THE MORNING FOR 90 DAYS.; Duration: 90 Days Active Spironolactone 50 MG Tablet 2 tabs orally daily; Duration: 90 days 04/30/2024 Active Estradiol 10 MCG TABLET 1 TAB(S) INTRAVAGINALLY 2 TIMES A WEEK; Duration: 90 DAYS *Please review and pick correct strength-formulat ion from New Relic options. If intended option is not shown, discontinue and re-order from Quick Search* 05/25/2024 Active metFORMIN HCl ER 500 MG Tablet Extended Release 24 Hour TAKE 1 TABLET BY MOUTH ONCE DAILY WITH DINNER FOR 90 DAYS; Duration: 90 Active Phentermine HCl 15 MG Capsule 1 cap(s) orally once a day (in the morning) 01/30/2024 Active Encounters Encounter Location Date Provider Diagnosis [address] [phone] 08/29/2024 Provider Migration Chronic idiopathic constipation K59.04 Assessments Encounter Date Diagnosis (ICD Code) Assessment Notes Treatment Notes Treatment Clinical Notes Section Notes 08/29/2024 Chronic idiopathic constipation (ICD-10 - K59.04) Plan Of Treatment Medication Medication Name Sig Start Date Stop Date Notes Linzess 72 MCG Capsule 1 cap(s) orally o nce a day; Duration: 90 days 08/27/2024 Next Appt Details Provider Name:Raya Calix, 09:30:00 AM, [address] [place] [address], [place], [phone], Progress Notes * Fadumo UMAÑAB:1970 ([age] yo F)Acc No.[id number]:08/29/2024 Patient: Fany Rivero Provider: Julio Srinivasan :1970 A ge:54 Y S ex:Female Date:08/29/2024 Phone: Address:[address] [place], [place] [phone] Pcp:Raya Calix Subjective: * Chief Complaints: * [facility] Encounter * Medications: T akingTirosint 50 MCG (0.05 MG) CAPSULE TAKE ONE CAPSULE BY MOUTH EVERY MORNING , Notes to Pharmacist: *Please review and pick correct strength-formulation from New Relic options. If intended option is not shown, discontinue and re-order from Quick Search* *Pick strength-form from New Relic for eRX*Cyanocobalamin 1000 MCG/ML Solution INJECT 1 ML EVERY WEEK BY SUBCUTANEOUS ROUTE IN THE MORNING FOR 90 DAYS. Spironolactone 50 MG Tablet 2 tabs orally daily Estradiol 10 MCG TABLET 1 TAB(S) INTRAVAGINALLY 2 TIMES A WEEK , Notes to Pharmacist: *Please review and pick correct strength-formulation from [employer] options. If intended option is not shown, discontinue and re-order from Quick Search*metFORMIN HCl ER 500 MG Tablet Extended Release 24 Hour TAKE 1 TABLET BY MOUTH ONCE DAILY WITH DINNER FOR 90 DAYS Phentermine HCl 15 MG Capsule 1 cap(s) orally once a day (in the morning) Taking Tirosint 50 MCG (0.05 MG) CAPSULE TAKE ONE CAPSULE BY MOUTH EVERY MORNING , Notes to Pharmacist: *Please review and pick correct strength-formulation from New Relic options. If intended option is not shown, discontinue and re-order from Quick Search* *Pick strength-form from New Relic for eRX*Taking Cyanocobalamin 1000 MCG/ML Solution INJECT 1 ML EVERY WEEK BY SUBCUTANEOUS ROUTE IN THE MORNING FOR 90 DAYS. Taking Spironolactone 50 MG Tablet 2 tabs orally daily Taking Estradiol 10 MCG TABLET 1 TAB(S) INTRAVAGINALLY 2 TIMES A WEEK , Notes to Pharmacist: *Please review and pick correct strength-formulation from New Relic options. If intended option is not shown, discontinue and re-order from Quick Search*Taking metFORMIN HCl ER 500 MG Tablet Extended Release 24 Hour TAKE 1 TABLET BY MOUTH ONCE DAILY WITH DINNER FOR 90 DAYS Taking Phentermine HCl 15 MG Capsule 1 cap(s) orally once a day (in the morning) Assessment: * Assessment: 1. C hronic idiopathic constipation - K59.04 Plan: * Treatment: * Electronic signature of Josefina feldman Migration on 09/15/2025 at 01:19 PM RECYCLING SPECIALIST Sign off status: Pending * Provider: Julio talley Migration Date: 10/29/2023 Generated for Mohini west/Nichelle/Gasper on: 11/16/2024 01:19 PM RECYCLING SPECIALIST
--- OUTSIDE RECORDS SUMMARY | 2024-09-03 04:00 | XMS_ITS ---
Author Organization [facility] Address [address] [place], [place] [phone] Care Team Providers Care Paper Processing Machine Helper Name Role Phone Raya Calix Primary Care Provider [phone] REASON FOR VISIT Med Check Encounters Encounter Location Date Provider Diagnosis [facility]MO Dr. Calix [address] [place] [phone] 09/03/2024 Raya Calix Plan Of Treatment Next Appt Details Provider Name:Rayalan Calix, 09:30:00 AM, [address] [place] [address], [phone], Progress Notes * Fadumo UMAÑAB:1970 ([age] yo F)Acc No.[id number]:09/03/2024 Progress Notes Patient: Fany Rivero Provider: Vandana Calix MD :1970 A ge:54 Y S ex:Female Date:09/03/2024 Phone: Address:[address] [place], [place] [phone] Subjective: * Chief Complaints: * M ed Check * Electronic signature of Deniz Calix MD on 09/15/2025 at 01:19 PM POWER EQUIPMENT MECHANICS INSTRUCTOR Sign off status: Pending * Provider: Vandana Calix MD Date: 11/03/2023 Generated for Sali ng/Facamilog/eTransmitting on: 11/16/2024 01:19 PM POWER EQUIPMENT MECHANICS INSTRUCTOR
--- OUTSIDE RECORDS SUMMARY | 2025-09-13 11:30 | XMS_ITS ---
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 Name Role Phone Brittani Savage Primary Care Provider Unavailab Josue Son Unavailable [phone] REASON FOR VISIT SCIT - Traditional Schedule Allergy Immunotherapy (Week ) Social History Sex Assigned At : Social History Observation Description Sex Assigned At Female Encounters Encounter Location Date Provider Diagnosis [facility] [address] [place] [address] 09/13/2025 Josue Levy Allergic rhinitis du e to pollen J30.1 ; Other allergic rhinitis J30.89 ; Allergic rhinitis due to animal (cat) (dog) hair and dander J30.81 and Other chronic allergic conjunctivitis H10.45 Assessments Encounter Date Diagnosis (ICD Code) Assessment Notes Treatment Notes Treatment Clinical Notes Section Notes 09/13/2025 Allergic rhinitis due to pollen (ICD-10 - J30.1) 09/13/2025 Other allergic rhinitis (ICD-10 - J30.89) 09/13/2025 Allergic rhinitis due to animal (cat) (dog) hair and dander (ICD-10 - J30.81) 09/13/2025 Other chronic allergic conjunctivitis (ICD-10 - H10.45) Plan Of Treatment Next Appt Details Follow Up: As scheduled, [place] son: Provider Name:Josue Levy , 09/22/2025 10:50:00 AM, [address] [facility] [address], [place], [address], Progress Notes * Fadumo GATESB:1970 ([age] yo F)Acc No.[id number]:09/13/2025 SCIT-Aeroallergen Patient: Fany BOWER Provider: Julio Levy MD :1970 A ge:55 Y S ex:Female Date:09/13/2025 Address:[address] [place], [place] [id number] Pcp:Brittani Savage Subjective: * Chief Complaints: * 1 . SCIT - Traditional Schedule Allergy Immunotherapy (Week ). * HPI: * Introduction: The patient is here for scheduled immunotherapy. Please see the attached specialty form regarding the specifics of the administration of these vaccines. As per our protocol, they must undergo a screening health questionnaire (medication changes, reaction(s) to last immunotherapy dose(s), current health status, ACT (if appropriate), self-injectable epinephrine on patient(?) and peak flow (if appropriate)). Also, the patient must wait in our office for 30 minutes after receiving the vaccine(s). Furthermore, every patient must have an epinephrine pen (self-injectable) with them at the time of administration--and carry if for the following 1.5 hours after they leave our office. The patient must also have taken their antihistamine the day of the injection, preferably 2 hours prior. The consent form for SCIT (subcutaneous immunotherapy) is on file. * Medical History: Objective: * Vitals: Assessment: * Assessment: 1. A llergic rhinitis due to pollen - J30.1 (Primary) 2 . O ther allergic rhinitis - J30.89 3 . A llergic rhinitis due to animal (cat) (dog) hair and dander - J30.81 4 . O ther chronic allergic conjunctivitis - H10.45 Plan: * Treatment: * Preventive Medicine: Counseling: E xercise A void heavy lifting on days of allergy immunotherapy. M edication instruction: I njectable epinephrine education and instruction w/ discussion of signs and symptoms of anaphylaxis and reasons to seek urgent or emergent care, Watch for side effects of prescribed medications. E ducation: A ble to return demonstration of self-injectable epinephrine. * Follow Up: A s scheduled * Billing Information: * Visit Code: * Procedure Codes: 63832 IMMUNOTHERAPY INJECTIONS. * Electronic signature of Yodit Levy MD, FAAAAI on 09/15/2025 at 01:19 PM CREATIVE PERFUMER Sign off status: Pending * Provider: Julio Levy MD Date: 11/14/2024 Generated for Printi ng/Nichelle/eTransmitting on: 11/16/2024 01:19 PM CREATIVE PERFUMER History and Physical Notes * HPI (History of Present Illness) Category Sub-Category Detail Notes Category Not es *Introduction The patient is here for scheduled immunotherapy. Please see the attached specialty form regarding the specifics of the administration of these vaccines. As per our protocol, they must undergo a screening health questionnaire (medication changes, reaction(s) to last immunotherapy dose(s), current health status, ACT (if appropriate), self-injectable epinephrine on patient(?) and peak flow (if appropriate)). Also, the patient must wait in our office for 30 minutes after receiving the vaccine(s). Furthermore, every patient must have an epinephrine pen (self-injectable) with them at the time of administration--and carry if for the following 1.5 hours after they leave our office. The patient must also have taken their antihistamine the day of the injection, preferably 2 hours prior. The consent form for SCIT (subcutaneous immunotherapy) is on file.
--- NOTE | ~2025-09-15 | MM_ITS ---
EXAMINATION: MM screening giselle BI w deny HISTORY: Screening. TECHNIQUE: Craniocaudal and mediolateral oblique 3-D tomosynthesis images were obtained and synthetic 2-D images were generated. CAD analysis was submitted and interpreted. COMPARISON: 2022 BREAST PARENCHYMAL COMPOSITION: Dense: The breasts are heterogeneously dense FINDINGS: There is an asymmetry at the superior aspect of the right MLO view. There are no suspicious calcifications. No unexplained architectural distortion is seen. There are no skin or nipple abnormalities identified. There is no adenopathy seen on the images submitted. IMPRESSION: Asymmetry in the right for which additional mammographic and possibly sonographic imaging is recommended. BI-RADS 0 - Incomplete - needs additional imaging evaluation and/or prior mammograms for comparison. Reviewed, dictated and finalized at location B. LEGAL SPECIALIST IMPRESSION: Asymmetry in the right for which additional mammographic and possibly sonograph ic imaging is recommended. BI-RADS 0 - Incomplete - needs additional imaging evaluation and/or prior mammo grams for comparison.
--- OUTSIDE RECORDS SUMMARY | 2025-09-15 13:19 | XMS_ITS | Patient Health Record ---
Author Organization [employer] [place] ([address]) Address [address] [place] [address] Care Team Providers Care Radio Commentator Name Role Phone Brittani Savage Primary Care Provider Unavailab Josue Son Unavailable [phone] Shyanne Ramos Unavailable [phone] Vanna Somers Unavailable [phone] Lucinda Ybarra Unavailable [phone] Allergies Allergen (clinical drug ingredient) Drug/Non Drug Allergy documented on EMR Reaction Allergy Type Onset Date Status keflex (uncoded) hives Allergy Act yana clindamycin Clindamycin hives Drug Allergy Act yana doxycycline Doxycycline hives Drug Allergy Act yana Substance with sulfonamide structure and antibacterial mechanism of action (substance) Sulfa Antibiotics hives Drug Allergy Active Results Component Value Reference Range Notes RESPIRATORY ALLERGY PROFILE REGION VIII: [place], [place] Reviewed date:02/23/2025 06:52:10 AM Interpretation:Abnormal Performing Lab:[place], [facility], [address], [place], [address] Arya Mendez MD Notes/Report: FASTING: YES FASTING:YES NON-FASTING DERMATOPHAGOIDES PTERONYSSIN US (D1) IGE 0.51 CLASS 1 DERMATOPHAGOIDES FARINAE (D2 ) IGE 0.60 CLASS 1 PENICILLIUM NOTATUM (M1) IGE <0.10 CLASS 0 CLADOSPORIUM HERBARUM (M2) IGE <0.10 CLASS 0 ASPERGILLUS FUMIGATUS (M3) IGE <0.10 CLASS 0 ALTERNARIA ALTERNATA (M6) IGE <0.10 CLASS 0 COCKROACH (I6) IGE 0.61 CLASS 1 MAPLE (BOX ELDER) (T1) IGE <0.10 CLASS 0 MOUNTAIN CEDAR (T6) IGE <0.10 CLASS 0 WALNUT TREE (T10) IGE <0.10 CLASS 0 [place] (T11) IGE <0.10 CLASS 0 C[place]OD (T14) IGE <0.10 CLASS 0 WHITE MILTON (T15) IGE <0.10 CLASS 0 OAK (T7) IGE <0.10 CLASS 0 ELM (T8) IGE <0.10 CLASS 0 HICKORY/PECAN TREE (T22) IGE <0.10 CLASS 0 WHITE MULBERRY (T70) IGE <0.10 CLASS 0 BERMUDA GRASS (G2) IGE <0.10 CLASS 0 DEISI GRASS (G6) IGE <0.10 CLASS 0 COMMON RAGWEED (SHORT) (W1) IGE <0.10 CLASS 0 ROUGH PIGWEED (W14) IGE <0.10 CLASS 0 COLOMBIAN THISTLE (W11) IGE <0.10 CLASS 0 ROUGH STERN ELDER (W16) IGE <0.10 CLASS 0 MOUSE URINE PROTEINS (E72) IGE <0.10 CLASS 0 IMMUNOGLOBULIN E 176 <TP=303 kU/L CAT DANDER (E1) IGE <0.10 CLASS 0 DOG DANDER (E5) IGE <0.10 CLASS 0 INTERPRETATION Reviewed date:02/23/2025 06:51:42 AM Interpretation:Interpretation Performing Lab:[place], [facility] [address] [facility], [address] [place], [address] Arya Mendez MD Notes/Report: FASTING: YES FASTING:YES NON-FASTING INTERPRETATION Specific Level of Allergen IGE Class kU/L Specific IGE Antibody ----- --------- 0 <0.10 Absent/Undetectable 0/1 0.10-0.34 Very Low Level 1 0.35-0.69 Low Level 2 0.70-3.49 Moderate Level 3 3.50-17.4 High Level 4 17.5-49.9 Very High Level 5 50-100 Very High Level 6 >100 Very High Level The clinical relevance of allergen results of 0.10-0.34 kU/L are undetermined and intended for specialist use. Allergens denoted with a include results using one or more analyte specific reagents. In those cases, the test was developed and its analytical performance characteristics have been determined by [facility]. It has not been cleared or approved by the U.S. Food and Drug Administration. This assay has been validated pursuant to the CLIA regulations and is used for clinical purposes. Reason For Referral No Information Medications Medication SIG (Take, Route, Frequency, Duration) Notes Start Date End Date Status Cyanocobalamin 1000 MCG 1 tablet Orally Once a day Active Phentermine HCl 15 MG 1 capsule Orally O nce a day Active Progesterone 200 MG 1 capsule at bedtime Orally Once a day Active Estradiol 1 MG/GM 1 tablet Orally twic e a day Active Fexofenadine HCl 180 MG 1 tablet Swallow whole with water; do not take with fruit juices. Orally 3 times a day; Duration: 90 days Active Tirosint 50 MCG 1 capsule in the morning on an empty stomach Orally Once a day Active Xolair 150 MG/ML 300mg Subcutaneous every 4 weeks Active Vitamin C Active metFORMIN HCl 500 MG 1 tablet with a geraldine l Orally Once a day Active Probiotic Active Flaxseed Oil Active Nasal Wash - as directed Nasally Daily, PRN; Duration: 30 days Active Flonase Allergy Relief 50 MCG/ACT 1 spray in each nostril Nasally Twice a day; Duration: 30 days Avoid nasal septum. Active Famotidine 40 MG 1 tablet Orally Twic e daily; Duration: 90 days Active Montelukast Sodium 10 MG 1 tablet Orally Once a day; Duration: 90 days Active Spironolactone 50 MG 1 tablet Orally Onc e a day Active EPINEPHrine 0.3 MG/0.3ML as directed Injection as needed for swelling or allergic reactdion; Duration: 30 days Active Cetirizine HCl 10 MG 1 tablets Orally On ce a day; Duration: 90 days Active Social History Tobacco Use: Social History Observation Description Date Details (start date - stop date) Never Smoker NA - NA Sex Assigned At : Social History Observation Description Sex Assigned At Female Tobacco Control (Standard) Question Answer Notes Tobacco use: Nonsmoker AUDIT-C (Standard) Question Answer Notes Did you have a drink containing alcohol in the p ast year? No Points 0 Interpretation Negative Problems Problem Type SNOMED Code ICD Code Onset Dates Problem Status W/U Status Risk Notes Problem Idiopathic urticaria (01917565) Idiopathic urticaria (L50.1) Active confirmed Problem Angioneurotic edema (23810327) Angioneurotic edema, initial encounter (T78.3XXA) Active confirmed Problem Chronic allergic conjunctivitis (64924981) Other chronic allergic conjunctivitis (H10.45) Active confirmed Problem Allergic rhinitis caused by pollen (disorder) (85949985) Allergic rhinitis due to pollen (J30.1) Active confirmed Problem Allergic rhinitis (01847299) Other allergic rhinitis (J30.89) Active confirmed Problem Uncomplicated moderate persistent asthma (644364138) Moderate persistent asthma, uncomplicated (J45.40) Active confirmed Problem Uncomplicated severe persistent asthma (582685796) Severe persistent asthma, uncomplicated (J45.50) Active confirmed Problem Ingestion dermatitis caused by food (635080870) Dermatitis due to ingested food (L27.2) Active confirmed Problem Dermatographic urticaria (8525320) Dermatographic urticaria (L50.3) Active confirmed Problem Allergic rhinitis caused by animal hair and dander (097880105734089) Allergic rhinitis due to animal (cat) (dog) hair and dander (J30.81) Active confirmed Problem Allergy status t o other antibiotic agents (Z88.1) Active confirmed Problem Allergy to sulfonamides (38365379) Allergy status to sulfonamides (Z88.2) Active confirmed Problem Allergic reaction caused by antiinfective agent (disorder) (0552829513112995 5) Allergy status to other anti-infective agents (Z88.3) Active confirmed Vital Signs Respiratory Rate 17 /min 07/22/2025 Oximetry 100 % 08/26/2025 Blood pressure diastolic 90 mm Hg 08/26/2025 Height 60 in 08/26/2025 Blood pressure systolic 150 mm Hg 08/26/2025 Weight 160.8 lbs 07/22/2025 BMI 31.4 kg/m2 07/22/2025 Encounters Encounter Location Date Provider Diagnosis [facility] [address] [address] 08/02/2025 Josue Levy Allergic rhinitis du e to pollen J30.1 ; Other allergic rhinitis J30.89 ; Allergic rhinitis due to animal (cat) (dog) hair and dander J30.81 and Other chronic allergic conjunctivitis H10.45 [facility] [address] [place], [place] [address] [address] [address] 07/19/2025 Josue Cam Allergic rhinitis du e to pollen J30.1 ; Other allergic rhinitis J30.89 ; Allergic rhinitis due to animal (cat) (dog) hair and dander J30.81 and Other chronic allergic conjunctivitis H10.45 [facility] [address] [place] [address] [employer] [address] [address] 07/12/2025 Josue Cam Allergic rhinitis du e to pollen J30.1 ; Other allergic rhinitis J30.89 ; Allergic rhinitis due to animal (cat) (dog) hair and dander J30.81 and Other chronic allergic conjunctivitis H10.45 [facility] [address] [place] [address] [employer] [address] [address] 07/05/2025 Josue Cam Allergic rhinitis du e to pollen J30.1 ; Other allergic rhinitis J30.89 ; Allergic rhinitis due to animal (cat) (dog) hair and dander J30.81 and Other chronic allergic conjunctivitis H10.45 [facility] [address] [place] [address] [employer] [address] [address] 06/28/2025 Josuepatrick Levy Allergic rhinitis du e to pollen J30.1 ; Other allergic rhinitis J30.89 ; Allergic rhinitis due to animal (cat) (dog) hair and dander J30.81 and Other chronic allergic conjunctivitis H10.45 [facility] [address] [place] [address] [employer] [address] [address] 06/07/2025 Josuepatrick Levy Allergic rhinitis du e to pollen J30.1 ; Allergic rhinitis due to animal (cat) (dog) hair and dander J30.81 ; Other allergic rhinitis J30.89 and Other chronic allergic conjunctivitis H10.45 [facility] [address] [place] [address] [employer] [address] [place] [phone] 05/31/2025 Josuepatrick Levy Allergic rhinitis du e to pollen J30.1 ; Other allergic rhinitis J30.89 ; Allergic rhinitis due to animal (cat) (dog) hair and dander J30.81 and Other chronic allergic conjunctivitis H10.45 [facility] [address] [place], [place] [address] [address] [address] 09/06/2025 Josue Cam Allergic rhinitis du e to pollen J30.1 ; Other allergic rhinitis J30.89 ; Allergic rhinitis due to animal (cat) (dog) hair and dander J30.81 and Other chronic allergic conjunctivitis H10.45 [facility] [address] [place], [place] [address] [address] [place] [phone] 05/17/2025 Josue Cam Allergic rhinitis du e to pollen J30.1 ; Allergic rhinitis due to animal (cat) (dog) hair and dander J30.81 ; Other allergic rhinitis J30.89 and Other chronic allergic conjunctivitis H10.45 [facility] [address] [place], [place] [address] [address] [address] 05/10/2025 Josue Cam Allergic rhinitis du e to pollen J30.1 ; Allergic rhinitis due to animal (cat) (dog) hair and dander J30.81 ; Other allergic rhinitis J30.89 and Other chronic allergic conjunctivitis H10.45 [facility] [address] [place], [place] [address] [address] [address] 05/05/2025 Josue Cam Allergic rhinitis du e to pollen J30.1 ; Allergic rhinitis due to animal (cat) (dog) hair and dander J30.81 ; Other allergic rhinitis J30.89 and Other chronic allergic conjunctivitis H10.45 [facility] [address] [place], [place] [address] [address] [place] [phone] 04/29/2025 Josue Levy Allergic rhinitis du e to pollen J30.1 ; Allergic rhinitis due to animal (cat) (dog) hair and dander J30.81 ; Other allergic rhinitis J30.89 and Other chronic allergic conjunctivitis H10.45 [facility] [address] [place], [place] [address] [address] [place] [phone] 04/22/2025 Jsoue Levy Allergic rhinitis du e to pollen J30.1 ; Allergic rhinitis due to animal (cat) (dog) hair and dander J30.81 ; Other allergic rhinitis J30.89 and Other chronic allergic conjunctivitis H10.45 [facility] [address] [place], [place] [address] [address] [place] [phone] 04/15/2025 Josue Levy Allergic rhinitis du e to pollen J30.1 ; Allergic rhinitis due to animal (cat) (dog) hair and dander J30.81 ; Other allergic rhinitis J30.89 and Other chronic allergic conjunctivitis H10.[address] [address] 04/12/2025 Lucinda Ybarra Allergic rhinitis du e to pollen J30.1 ; Dermatographic urticaria L50.3 ; Allergic rhinitis due to animal (cat) (dog) hair and dander J30.81 ; Other allergic rhinitis J30.89 ; Other chronic allergic conjunctivitis H10.45 ; Dermatitis due to ingested food L27.2 ; Angioneurotic edema, initial encounter T78.3XXA ; Idiopathic urticaria L50.1 ; Impacted cerumen, bilateral H61.23 ; Allergy status to other antibiotic agents Z88.1 ; Allergy status to sulfonamides Z88.2 ; Allergy status to other anti-infective agents Z88.3 and Elevated blood-pressure reading, without diagnosis of hypertension R03.[address] [address] 06/24/2025 Vanna Somers Dermatographic urticaria L50.3 ; Wheezing R06.2 ; Allergic rhinitis due to pollen J30.1 ; Allergic rhinitis due to animal (cat) (dog) hair and dander J30.81 ; Other allergic rhinitis J30.89 ; Other chronic allergic conjunctivitis H10.45 ; Dermatitis due to ingested food L27.2 ; Angioneurotic edema, initial encounter T78.3XXA ; Idiopathic urticaria L50.1 ; Impacted cerumen, bilateral H61.23 ; Allergy status to other antibiotic agents Z88.1 ; Allergy status to sulfonamides Z88.2 ; Allergy status to other anti-infective agents Z88.3 and Elevated blood-pressure reading, without diagnosis of hypertension R03.[address] [address] 08/16/2025 Josue Levy Allergic rhinitis du e to pollen J30.1 ; Other allergic rhinitis J30.89 ; Allergic rhinitis due to animal (cat) (dog) hair and dander J30.81 and Other chronic allergic conjunctivitis H10.45 [facility] [address] [address] 03/11/2025 Josue Levy Allergic rhinitis du e to pollen J30.1 ; Dermatographic urticaria L50.3 ; Allergic rhinitis due to animal (cat) (dog) hair and dander J30.81 ; Other allergic rhinitis J30.89 ; Other chronic allergic conjunctivitis H10.45 ; Dermatitis due to ingested food L27.2 ; Angioneurotic edema, initial encounter T78.3XXA ; Idiopathic urticaria L50.1 ; Impacted cerumen, bilateral H61.23 ; Allergy status to other antibiotic agents Z88.1 ; Allergy status to sulfonamides Z88.2 and Allergy status to other anti-infective agents Z88.[address] [address] 05/24/2025 Josue Levy Allergic rhinitis du e to pollen J30.1 ; Allergic rhinitis due to animal (cat) (dog) hair and dander J30.81 ; Other allergic rhinitis J30.89 and Other chronic allergic conjunctivitis H10.[address] [address] 04/08/2025 Josue Levy Allergic rhinitis du e to pollen J30.1 ; Allergic rhinitis due to animal (cat) (dog) hair and dander J30.81 ; Other allergic rhinitis J30.89 and Other chronic allergic conjunctivitis H10.[address] [address] 02/10/2025 Josue Levy Allergic rhinitis du e to pollen J30.1 ; Dermatographic urticaria L50.3 ; Allergic rhinitis due to animal (cat) (dog) hair and dander J30.81 ; Other allergic rhinitis J30.89 ; Other chronic allergic conjunctivitis H10.45 ; Dermatitis due to ingested food L27.2 ; Angioneurotic edema, initial encounter T78.3XXA ; Idiopathic urticaria L50.1 ; Impacted cerumen, bilateral H61.23 ; Allergy status to other antibiotic agents Z88.1 ; Allergy status to sulfonamides Z88.2 and Allergy status to other anti-infective agents Z88.[address] [address] 05/13/2025 Vanna Somers Allergic rhinitis du e to pollen J30.1 ; Dermatographic urticaria L50.3 ; Allergic rhinitis due to animal (cat) (dog) hair and dander J30.81 ; Other allergic rhinitis J30.89 ; Other chronic allergic conjunctivitis H10.45 ; Dermatitis due to ingested food L27.2 ; Angioneurotic edema, initial encounter T78.3XXA ; Idiopathic urticaria L50.1 ; Impacted cerumen, bilateral H61.23 ; Allergy status to other antibiotic agents Z88.1 ; Allergy status to sulfonamides Z88.2 and Allergy status to other anti-infective agents Z88.[address] [place] [phone] 07/22/2025 Shyanne Ramos Dermatographic urticaria L50.3 ; Wheezing R06.2 ; Allergic rhinitis due to pollen J30.1 ; Allergic rhinitis due to animal (cat) (dog) hair and dander J30.81 ; Other allergic rhinitis J30.89 ; Other chronic allergic conjunctivitis H10.45 ; Dermatitis due to ingested food L27.2 ; Angioneurotic edema, initial encounter T78.3XXA ; Idiopathic urticaria L50.1 ; Impacted cerumen, bilateral H61.23 ; Allergy status to other antibiotic agents Z88.1 ; Allergy status to sulfonamides Z88.2 and Allergy status to other anti-infective agents Z88.[address] [place] [phone] 08/26/2025 Josue Levy Other Urticaria L50. 8 [facility] [address] [place] [address] 02/10/2025 Josue Levy [facility] - [address] [place] [address] 06/28/2025 Josue Levy [facility] [address] [place] [address] 04/20/2025 Josue Levy [facility] [address] [place] [address] 04/22/2025 Josue Levy [address] [place] [phone] 03/22/2025 Josue Levy [facility] [address] [facility] [address] [place] [address] 03/11/[address] [facility] [address] [place] [address] 02/11/2025 Josue Levy Assessments Encounter Date Diagnosis (ICD Code) Assessment Notes Treatment Notes Treatment Clinical Notes Section Notes 02/10/2025 Dermatographic urticaria (ICD-10 - L50.3) CSU that is refractory to 4x FDA-approved dosing with elevated UAS7 and CU-Q2oL. Try to get Xolair approved now given scores. Continue medications and restart full regimen. To [facility] for treatment BI/PA. dc 02/10/2025 Allergic rhinitis due to pollen (ICD-10 - J30.1) Given the history and symptoms, and prior Immunocaps, Fany has clear atopy. She could benefit from testing but she is dermatographic today on antihistamines. 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 Accordingly, we have introduced a new, aggressive medication regimen, discussed nasal washes and allergy-specific avoidance measures. We also discussed adjunctive therapies including subcutaneous, specific allergen immunotherapy as relates to the treatment and prevention of atopic disease. She is currently considering the risks, benefits and alternatives to this care. Risks: bleeding, infection, allergic reaction, anaphylaxis; Benefits: reduced need for medications, improved symptoms, disease modification. Alternatives: watch/wait, change medication regimen, improve allergy avoidance measures. Follow-up in 1 month for interval evaluation and management dc 03/11/2025 Allergic rhinitis due to pollen (ICD-10 - J30.1) Signed for SCIT to be made. Will follow-up for SCIT via cluster schedule. Continue meds, avoidance and starting cluster on 04/07/2025 Knows premedication and AIE dc 03/11/2025 Dermatographic urticaria (ICD-10 - L50.3) CSU that is refractory to 4x FDA-approved dosing with elevated UAS7 and CU-Q2oL. Getting sleepy on Zyrtec 20 mg BID. Start Patt 180 mg TID with Zyrtec 10 mg PM. Trying to get Xolair approved given scores. Continue medications and restart full regimen. To [facility] for treatment BI/PA. dc 04/08/2025 Allergic rhinitis due to pollen (ICD-10 - J30.1) 04/12/2025 Allergic rhinitis due to pollen (ICD-10 - J30.1) Continue meds, avoidance and starting cluster on 04/07/2025 Knows premedication and AIE Not due for dosing today dc 04/15/2025 Allergic rhinitis due to pollen (ICD-10 - J30.1) 04/22/2025 Allergic rhinitis due to pollen (ICD-10 - J30.1) 04/29/2025 Allergic rhinitis due to pollen (ICD-10 - J30.1) 05/05/2025 Allergic rhinitis due to pollen (ICD-10 - J30.1) 05/10/2025 Allergic rhinitis due to pollen (ICD-10 - J30.1) 04/12/2025 Dermatographic urticaria (ICD-10 - L50.3) CSU that is refractory to 4x FDA-approved dosing with elevated UAS7 and CU-Q2oL. Getting sleepy on Zyrtec 20 mg BID, due to this started Patt 180 mg TID with Zyrtec 10 mg PM. - Due to ongoing symptoms, Dr. Levy and aFny discussed trial of XOLAIR 300 mg, every 4 weeks. - Fany is clearly a candidate for Xolair. She was educated regarding the risks/benefits/al ternatives to Xolair. Also reviewed again today 'boxed warning' for anaphylaxis as well as risk for malignancy and CV disease. She understands she is required to be observed for a 2-hour period the first 3 doses - has AIE. - Fany started XOLAIR today. Dosing was tolerated without issue, she was observed for two hours. AIE is on hand, training was provided. Thoroughly discussed indications of use. - Return in 4 weeks for second dose and further evaluation and management dc 05/13/2025 Allergic rhinitis due to pollen (ICD-10 - J30.1) Fany clearly suffers from atopic disease based upon our skin testing and history. Accordingly, we have encouraged his medication regimen, discussed nasal washes and allergy-specific avoidance measures. We also discussed adjunctive therapies including subcutaneous, specific allergen immunotherapy as relates to the treatment and prevention of atopic disease. After considering the risks, benefits and alternatives to this care, we continued treatment. Risks: bleeding, infection, allergic reaction, anaphylaxis; Benefits: reduced need for medications, improved symptoms, disease modification. Alternatives: watch/wait, change medication regimen, improve allergy avoidance measures. - Not due for dosing today. - Continue meds as listed above. Continue premedication. - AIE on hand at all times due to Xolair. - Follow-up in 1 week for SCIT 05/13/2025 Dermatographic urticaria (ICD-10 - L50.3) CSU that is refractory to 4x FDA-approved dosing with elevated UAS7 and CU-Q2oL. Getting sleepy on Zyrtec 20 mg BID. Due to this started Patt 180 mg TID with Zyrtec 10 mg PM. - Due to ongoing symptoms, Dr. Levy and Fany discussed trial of XOLAIR 300 mg, every 4 weeks. - Fany is clearly a candidate for Xolair. She was educated regarding the risks/benefits/al ternatives to Xolair. Also reviewed again today 'boxed warning' for anaphylaxis as well as risk for malignancy and CV disease. She understands she is required to be observed for a 2-hour period the first 3 doses - has AIE. - Fany continued XOLAIR today. Dosing was tolerated without issue, she was observed for two hours. AIE is on hand. - Return in 4 weeks for third dose and further evaluation and management 05/17/2025 Allergic rhinitis due to pollen (ICD-10 - J30.1) 05/24/2025 Allergic rhinitis due to pollen (ICD-10 - J30.1) 05/31/2025 Other allergic rhinitis (ICD-10 - J30.89) 06/07/2025 Allergic rhinitis due to pollen (ICD-10 - J30.1) 05/31/2025 Allergic rhinitis due to pollen (ICD-10 - J30.1) 06/24/2025 Dermatographic urticaria (ICD-10 - L50.3) CSU that is refractory to 4x FDA-approved dosing with elevated UAS7 and CU-Q2oL. Getting sleepy on Zyrtec 20 mg BID. Due to this started Aptt 180 mg TID with Zyrtec 10 mg PM, which she continues at this time. - Due to ongoing symptoms, Dr. Levy and Fany discussed trial of XOLAIR 300 mg, every 4 weeks. - Fany is clearly a candidate for Xolair. She was educated regarding the risks/benefits/al ternatives to Xolair. Also reviewed again today 'boxed warning' for anaphylaxis as well as risk for malignancy and CV disease. She understands she is required to be observed for a 2-hour period the first 3 doses - has AIE. - Fany continued XOLAIR today. Dosing was tolerated without issue, she was observed for two hours. AIE is on hand. - Return in 4 weeks for fourth dose and further evaluation and management 06/24/2025 Wheezing (ICD-10 - R06.2) Reported subjective wheezing followed by cough that has occurred 2-3 times this past summer. She is unsure if it is accompanied by chest tightness. denies shortness of breath. Details are vague and unclear at this time. - Spirometry recommended today, but patient declined. - Encouraged to monitor for further symptoms and journal for triggers. - Denies chest pain/tightness. Encoruaged to discuss with PCP - Consider ROHAN use to have on hand. Will discuss after spirometry is obtained. 06/28/2025 Allergic rhinitis due to pollen (ICD-10 - J30.1) 06/28/2025 Other allergic rhinitis (ICD-10 - J30.89) 07/05/2025 Allergic rhinitis due to pollen (ICD-10 - J30.1) 07/05/2025 Other allergic rhinitis (ICD-10 - J30.89) 07/12/2025 Allergic rhinitis due to pollen (ICD-10 - J30.1) 07/12/2025 Other allergic rhinitis (ICD-10 - J30.89) 07/19/2025 Allergic rhinitis due to pollen (ICD-10 - J30.1) 07/19/2025 Other allergic rhinitis (ICD-10 - J30.89) 07/22/2025 Wheezing (ICD-10 - R06.2) Reported subjective wheezing followed by cough that has occurred 2-3 times this past summer. She is unsure if it is accompanied by chest tightness. denies shortness of breath. Details are vague and unclear at this time. - Spirometry recommended previously, but patient declined. - Encouraged to monitor for further symptoms and journal for triggers. - Denies chest pain/tightness. Encoruaged to discuss with PCP - Consider ROHAN use to have on hand. Will discuss after spirometry is obtained. 07/22/2025 Dermatographic urticaria (ICD-10 - L50.3) CSU that is refractory to 4x FDA-approved dosing with elevated UAS7 and CU-Q2oL. Getting sleepy on Zyrtec 20 mg BID. Due to this started Patt 180 mg TID with Zyrtec 10 mg PM, which she continues at this time. - Due to ongoing symptoms, Dr. Levy and Fany discussed trial of XOLAIR 300 mg, every 4 weeks. - Fany is clearly a candidate for Xolair. She was educated regarding the risks/benefits/al ternatives to Xolair. Also reviewed again today 'boxed warning' for anaphylaxis as well as risk for malignancy and CV disease. She understands she is required to be observed for a 2-hour period the first 3 doses - has AIE. - Fany continued XOLAIR today. Dosing was tolerated without issue - Discussed titrating down meds over the next few months if able, await response to Xolair - Return in 4 weeks for fourth dose and further evaluation and management 08/02/2025 Allergic rhinitis due to pollen (ICD-10 - J30.1) 08/02/2025 Other allergic rhinitis (ICD-10 - J30.89) 08/16/2025 Allergic rhinitis due to pollen (ICD-10 - J30.1) 08/16/2025 Other allergic rhinitis (ICD-10 - J30.89) 08/26/2025 Other Urticaria (ICD-10 - L50.8) 09/06/2025 Allergic rhinitis due to pollen (ICD-10 - J30.1) 09/06/2025 Other allergic rhinitis (ICD-10 - J30.89) 09/06/2025 Allergic rhinitis due to animal (cat) (dog) hair and dander (ICD-10 - J30.81) 08/16/2025 Allergic rhinitis due to animal (cat) (dog) hair and dander (ICD-10 - J30.81) 08/02/2025 Allergic rhinitis due to animal (cat) (dog) hair and dander (ICD-10 - J30.81) 07/22/2025 Allergic rhinitis due to pollen (ICD-10 - J30.1) Fany clearly suffers from atopic disease based upon our skin testing and history. Accordingly, we have encouraged his medication regimen, discussed nasal washes and allergy-specific avoidance measures. We also discussed adjunctive therapies including subcutaneous, specific allergen immunotherapy as relates to the treatment and prevention of atopic disease. After considering the risks, benefits and alternatives to this care, we continued treatment. Risks: bleeding, infection, allergic reaction, anaphylaxis; Benefits: reduced need for medications, improved symptoms, disease modification. Alternatives: watch/wait, change medication regimen, improve allergy avoidance measures. - Not due for dosing today. - Continue meds as listed above. Continue premedication. - AIE on hand at all times due to Xolair. - Follow-up in 1 week for SCIT 07/19/2025 Allergic rhinitis due to animal (cat) (dog) hair and dander (ICD-10 - J30.81) 07/12/2025 Allergic rhinitis due to animal (cat) (dog) hair and dander (ICD-10 - J30.81) 07/05/2025 Allergic rhinitis due to animal (cat) (dog) hair and dander (ICD-10 - J30.81) 06/28/2025 Allergic rhinitis due to animal (cat) (dog) hair and dander (ICD-10 - J30.81) 06/24/2025 Allergic rhinitis due to pollen (ICD-10 - J30.1) Fany clearly suffers from atopic disease based upon our skin testing and history. Accordingly, we have encouraged his medication regimen, discussed nasal washes and allergy-specific avoidance measures. We also discussed adjunctive therapies including subcutaneous, specific allergen immunotherapy as relates to the treatment and prevention of atopic disease. After considering the risks, benefits and alternatives to this care, we continued treatment. Risks: bleeding, infection, allergic reaction, anaphylaxis; Benefits: reduced need for medications, improved symptoms, disease modification. Alternatives: watch/wait, change medication regimen, improve allergy avoidance measures. - Not due for dosing today. - Continue meds as listed above. Continue premedication. - AIE on hand at all times due to Xolair. - Follow-up in 1 week for SCIT 05/31/2025 Allergic rhinitis due to animal (cat) (dog) hair and dander (ICD-10 - J30.81) 06/07/2025 Allergic rhinitis due to animal (cat) (dog) hair and dander (ICD-10 - J30.81) 05/24/2025 Allergic rhinitis due to animal (cat) (dog) hair and dander (ICD-10 - J30.81) 05/17/2025 Allergic rhinitis due to animal (cat) (dog) hair and dander (ICD-10 - J30.81) 05/13/2025 Allergic rhinitis due to animal (cat) (dog) hair and dander (ICD-10 - J30.81) Follow allergen avoidance, meds and continue SCIT as an adjunctive treatment to current regimen 05/10/2025 Allergic rhinitis due to animal (cat) (dog) hair and dander (ICD-10 - J30.81) 05/05/2025 Allergic rhinitis due to animal (cat) (dog) hair and dander (ICD-10 - J30.81) 04/29/2025 Allergic rhinitis due to animal (cat) (dog) hair and dander (ICD-10 - J30.81) 04/22/2025 Allergic rhinitis due to animal (cat) (dog) hair and dander (ICD-10 - J30.81) 04/15/2025 Allergic rhinitis due to animal (cat) (dog) hair and dander (ICD-10 - J30.81) 04/12/2025 Allergic rhinitis due to animal (cat) (dog) hair and dander (ICD-10 - J30.81) Follow allergen avoidance, meds and continue SCIT as an adjunctive treatment to current regimen me 04/08/2025 Allergic rhinitis due to animal (cat) (dog) hair and dander (ICD-10 - J30.81) 03/11/2025 Allergic rhinitis due to animal (cat) (dog) hair and dander (ICD-10 - J30.81) Follow allergen avoidance, meds and start SCIT as an adjunctive treatment to current regimen me 02/10/2025 Allergic rhinitis due to animal (cat) (dog) hair and dander (ICD-10 - J30.81) Follow allergen avoidance, meds and consider SCIT as an adjunctive treatment to current regimen me 03/11/2025 Other allergic rhinitis (ICD-10 - J30.89) Follow allergen avoidance, meds and start SCIT as an adjunctive treatment to current regimen dc 02/10/2025 Other allergic rhinitis (ICD-10 - J30.89) Follow allergen avoidance, meds and consider SCIT as an adjunctive treatment to current regimen dc 04/08/2025 Other allergic rhinitis (ICD-10 - J30.89) 04/12/2025 Other allergic rhinitis (ICD-10 - J30.89) Follow allergen avoidance, meds and continue SCIT as an adjunctive treatment to current regimen dc 04/15/2025 Other allergic rhinitis (ICD-10 - J30.89) 04/22/2025 Other allergic rhinitis (ICD-10 - J30.89) 04/29/2025 Other allergic rhinitis (ICD-10 - J30.89) 05/05/2025 Other allergic rhinitis (ICD-10 - J30.89) 05/10/2025 Other allergic rhinitis (ICD-10 - J30.89) 05/13/2025 Other allergic rhinitis (ICD-10 - J30.89) Follow allergen avoidance, meds and continue SCIT as an adjunctive treatment to current regimen 05/17/2025 Other allergic rhinitis (ICD-10 - J30.89) 05/24/2025 Other allergic rhinitis (ICD-10 - J30.89) 06/07/2025 Other allergic rhinitis (ICD-10 - J30.89) 05/31/2025 Other chronic allergic conjunctivitis (ICD-10 - H10.45) 06/24/2025 Allergic rhinitis due to animal (cat) (dog) hair and dander (ICD-10 - J30.81) Follow allergen avoidance, meds and continue SCIT as an adjunctive treatment to current regimen 07/05/2025 Other chronic allergic conjunctivitis (ICD-10 - H10.45) 07/12/2025 Other chronic allergic conjunctivitis (ICD-10 - H10.45) 07/19/2025 Other chronic allergic conjunctivitis (ICD-10 - H10.45) 06/28/2025 Other chronic allergic conjunctivitis (ICD-10 - H10.45) 07/22/2025 Allergic rhinitis due to animal (cat) (dog) hair and dander (ICD-10 - J30.81) Follow allergen avoidance, meds and continue SCIT as an adjunctive treatment to current regimen 08/16/2025 Other chronic allergic conjunctivitis (ICD-10 - H10.45) 09/06/2025 Other chronic allergic conjunctivitis (ICD-10 - H10.45) 08/02/2025 Other chronic allergic conjunctivitis (ICD-10 - H10.45) 07/22/2025 Other allergic rhinitis (ICD-10 - J30.89) Follow allergen avoidance, meds and continue SCIT as an adjunctive treatment to current regimen 06/24/2025 Other allergic rhinitis (ICD-10 - J30.89) Follow allergen avoidance, meds and continue SCIT as an adjunctive treatment to current regimen 06/07/2025 Other chronic allergic conjunctivitis (ICD-10 - H10.45) 05/24/2025 Other chronic allergic conjunctivitis (ICD-10 - H10.45) 05/17/2025 Other chronic allergic conjunctivitis (ICD-10 - H10.45) 05/13/2025 Other chronic allergic conjunctivitis (ICD-10 - H10.45) Given ocular signs and symptoms I encouraged allergy avoidance measures and meds as above. If symptoms persist, consider adding additional medications including intraocular antihistamine/mas t cell stabilizer, PRN and continue SCIT as an adjunctive measure 05/10/2025 Other chronic allergic conjunctivitis (ICD-10 - H10.45) 05/05/2025 Other chronic allergic conjunctivitis (ICD-10 - H10.45) 04/29/2025 Other chronic allergic conjunctivitis (ICD-10 - H10.45) 04/22/2025 Other chronic allergic conjunctivitis (ICD-10 - H10.45) 04/15/2025 Other chronic allergic conjunctivitis (ICD-10 - H10.45) 04/12/2025 Other chronic allergic conjunctivitis (ICD-10 - H10.45) Given ocular signs and symptoms I encouraged allergy avoidance measures and meds as above. If symptoms persist, consider adding additional medications including intraocular antihistamine/mas t cell stabilizer, PRN and continue SCIT as an adjunctive measure me 04/08/2025 Other chronic allergic conjunctivitis (ICD-10 - H10.45) 03/11/2025 Other chronic allergic conjunctivitis (ICD-10 - H10.45) Given ocular signs and symptoms I encouraged allergy avoidance measures and meds as above. If symptoms persist, consider adding additional medications including intraocular antihistamine/mas t cell stabilizer, PRN and consider SCIT as an adjunctive measure me 02/10/2025 Other chronic allergic conjunctivitis (ICD-10 - H10.45) Given ocular signs and symptoms I encouraged allergy avoidance measures and meds as above. If symptoms persist, consider adding additional medications including intraocular antihistamine/mas t cell stabilizer, PRN and consider SCIT as an adjunctive measure dc 03/11/2025 Dermatitis due to ingested food (ICD-10 - L27.2) Gorgonzola leads to burning and itching that resolves with antihistamines. Favor oral allergy syndrome to molds over IgE-mediated food allergy. Check Immunocaps and return in 4 weeks for interval assessment. me 02/10/2025 Dermatitis due to ingested food (ICD-10 - L27.2) Gorgonzola leads to burning and itching that resolves with antihistamines. Favor oral allergy syndrome to molds over IgE-mediated food allergy. Check Immunocaps and return in 4 weeks for interval assessment. me 04/12/2025 Dermatitis due to ingested food (ICD-10 - L27.2) Gorgonzola leads to burning and itching that resolves with antihistamines. Favor oral allergy syndrome to molds over IgE-mediated food allergy. Check Immunocaps and return in 4 weeks for interval assessment. dc 05/13/2025 Dermatitis due to ingested food (ICD-10 - L27.2) Gorgonzola leads to burning and itching that resolves with antihistamines. Favor oral allergy syndrome to molds over IgE-mediated food allergy. Check Immunocaps and return in 4 weeks for interval assessment. 06/24/2025 Other chronic allergic conjunctivitis (ICD-10 - H10.45) Given ocular signs and symptoms I encouraged allergy avoidance measures and meds as above. If symptoms persist, consider adding additional medications including intraocular antihistamine/mas t cell stabilizer, PRN and continue SCIT as an adjunctive measure 07/22/2025 Other chronic allergic conjunctivitis (ICD-10 - H10.45) Given ocular signs and symptoms I encouraged allergy avoidance measures and meds as above. If symptoms persist, consider adding additional medications including intraocular antihistamine/mas t cell stabilizer, PRN and continue SCIT as an adjunctive measure 07/22/2025 Dermatitis due to ingested food (ICD-10 - L27.2) Gorgonzola leads to burning and itching that resolves with antihistamines. Favor oral allergy syndrome to molds over IgE-mediated food allergy. Continue SCIT as above. 06/24/2025 Dermatitis due to ingested food (ICD-10 - L27.2) Gorgonzola leads to burning and itching that resolves with antihistamines. Favor oral allergy syndrome to molds over IgE-mediated food allergy. Continue SCIT as above. 04/12/2025 Angioneurotic edema, initial encounter (ICD-10 - T78.3XXA) me 05/13/2025 Angioneurotic edema, initial encounter (ICD-10 - T78.3XXA) 03/11/2025 Angioneurotic edema, initial encounter (ICD-10 - T78.3XXA) me 02/10/2025 Angioneurotic edema, initial encounter (ICD-10 - T78.3XXA) me 02/10/2025 Idiopathic urticaria (ICD-10 - L50.1) me 03/11/2025 Idiopathic urticaria (ICD-10 - L50.1) me 04/12/2025 Idiopathic urticaria (ICD-10 - L50.1) me 05/13/2025 Idiopathic urticaria (ICD-10 - L50.1) As stated above. 06/24/2025 Angioneurotic edema, initial encounter (ICD-10 - T78.3XXA) As stated above. 07/22/2025 Angioneurotic edema, initial encounter (ICD-10 - T78.3XXA) As stated above. 07/22/2025 Idiopathic urticaria (ICD-10 - L50.1) As stated above. 06/24/2025 Idiopathic urticaria (ICD-10 - L50.1) As stated above. 05/13/2025 Impacted cerumen, bilateral (ICD-10 - H61.23) Avoid Q-tips, previously cleaned. 04/12/2025 Impacted cerumen, bilateral (ICD-10 - H61.23) Avoid Q-tips, previously cleaned. me 03/11/2025 Impacted cerumen, bilateral (ICD-10 - H61.23) Avoid Q-tips, previously cleaned. dc 02/10/2025 Impacted cerumen, bilateral (ICD-10 - H61.23) Ear cleaning as below. Avoid Q-tips dc 02/10/2025 Allergy status to other antibiotic agents (ICD-10 - Z88.1) Reactions to doxy, clindamycin, sulfa and Keflex. Consider work-up to rule out IgE-mediated disease. She continues avoidance. Favor CSU over multiple drug allergy. dc 04/12/2025 Allergy status to other antibiotic agents (ICD-10 - Z88.1) Reactions to doxy, clindamycin, sulfa and Keflex. Consider work-up to rule out IgE-mediated disease. She continues avoidance. Favor CSU over multiple drug allergy. dc 03/11/2025 Allergy status to other antibiotic agents (ICD-10 - Z88.1) Reactions to doxy, clindamycin, sulfa and Keflex. Consider work-up to rule out IgE-mediated disease. She continues avoidance. Favor CSU over multiple drug allergy. dc 05/13/2025 Allergy status to other antibiotic agents (ICD-10 - Z88.1) Reactions to doxy, clindamycin, sulfa and Keflex. Consider work-up to rule out IgE-mediated disease. She continues avoidance. Favor CSU over multiple drug allergy. 06/24/2025 Impacted cerumen, bilateral (ICD-10 - H61.23) Avoid Q-tips, previously cleaned. 07/22/2025 Impacted cerumen, bilateral (ICD-10 - H61.23) Avoid Q-tips, previously cleaned. 07/22/2025 Allergy status to other antibiotic agents (ICD-10 - Z88.1) Reactions to doxy, clindamycin, sulfa and Keflex. Consider work-up to rule out IgE-mediated disease. She continues avoidance. Favor CSU over multiple drug allergy. 06/24/2025 Allergy status to other antibiotic agents (ICD-10 - Z88.1) Reactions to doxy, clindamycin, sulfa and Keflex. Consider work-up to rule out IgE-mediated disease. She continues avoidance. Favor CSU over multiple drug allergy. 05/13/2025 Allergy status to sulfonamides (ICD-10 - Z88.2) As above 03/11/2025 Allergy status to sulfonamides (ICD-10 - Z88.2) me 04/12/2025 Allergy status to sulfonamides (ICD-10 - Z88.2) As above me 02/10/2025 Allergy status to sulfonamides (ICD-10 - Z88.2) me 02/10/2025 Allergy status to other anti-infective agents (ICD-10 - Z88.3) me 04/12/2025 Allergy status to other anti-infective agents (ICD-10 - Z88.3) As above me 03/11/2025 Allergy status to other anti-infective agents (ICD-10 - Z88.3) me 05/13/2025 Allergy status to other anti-infective agents (ICD-10 - Z88.3) As above 06/24/2025 Allergy status to sulfonamides (ICD-10 - Z88.2) As above 07/22/2025 Allergy status to sulfonamides (ICD-10 - Z88.2) As above 07/22/2025 Allergy status to other anti-infective agents (ICD-10 - Z88.3) As above 06/24/2025 Allergy status to other anti-infective agents (ICD-10 - Z88.3) As above 04/12/2025 Elevated blood-pressure reading, without diagnosis of hypertension (ICD-10 - R03.0) BP elevated today without symptoms of urgency or emergency. Continue serial checks and follow-up with PCP dc 06/24/2025 Elevated blood-pressure reading, without diagnosis of hypertension (ICD-10 - R03.0) BP elevated today without symptoms of urgency or emergency. Continue serial checks and follow-up with PCP 05/13/2025 Other 06/24/2025 Other 07/22/2025 Other 08/26/2025 Other Plan Of Treatment Next Appt Details Provider Name:Josue Levy , 09/22/2025 10:50:00 AM, 2022 [facility], [facility] [address], [place], [address], Insurance Providers Payer Name Payer Address Payer Phone Subscriber Number Group Number Insured Name Patient Relationship to Insured Coverage Start Date Coverage End Date [facility] [address] [place] [phone] [id number] José Manuel Umaña Spouse - patient is the spouse of the insured 5 [employer] [address] [place] [address] [id number] Fany Umaña Self - patient is the insured Medical (General) History Medical History History ICD Code Hypothyroidism Surgical History Surgery Date(Month/Year) carpal tunnel right hysterectomy Meniscus repair Hospitalization History Reason Date(Month/Year) See Above
--- OUTSIDE RECORDS SUMMARY | 2025-09-15 13:19 | XMS_ITS | Clinical Summary ---
Author Organization [facility] Address [address] [place] [address] Care Team Providers Care Computer Networking Instructor Name Role Phone Brittani Savage Primary Care [...] 11/28/2023 Assessment & Plan (11/28/2023 3:55 PM COOKING [employer]OW HOST): Continue HRT with premarin Vitamin B 12 deficiency 11/28/2023 Assessment & Plan (11/28/2023 3:55 PM COOKING [employer]OW HOST): Update vit B12 levels Recommendations to follow Obesity due to excess calories without serious c omorbidity 11/28/2023 Assessment & Plan (11/28/2023 3:57 PM [employer]OST): Diet and exercise Continue Phentermine Hypothyroidism 02/27/2014 Overview (01/17/2017): HYPOTHYROIDISM NOS Assessment & Plan (11/28/2023 3:54 PM [employer]): Chronic, stable Will update TFTs If needed, [...] on file Legal Sex Female 7:59 AM [employer] Gender Identity Not on file Sexual Orientation Not on file Last Filed Vital Signs Vital Sign Reading Time Taken Comments Blood Pressure 130/70 11/28/2023 1:29 PM [employer] Pulse 67 11/28/2023 1:29 PM [employer] Temperature - - Respiratory Rate 16 11/28/2023 1:29 PM [employer] Oxygen Saturation 97% 08/16/2014 3:29 PM [employer] Inhaled Oxygen Concentration - - Weight 74.3 kg (163 lb 11.2 oz) 11/28/2023 1:29 PM [employer] Height 152.4 cm (5') 11/28/2023 1:29 PM [employer]ING [employer] H[employer] Body Mass Index 31.97 11/28/2023 1:29 PM [employer]OST Plan of Treatment Health Maintenance Due Date Last Done Comments Cervical Cancer Screening 1970 Colon Cancer Screening-Colonoscopy 1970 Depression Screening 1970 Hepatitis C Screening 1970 DTaP/Tdap/Td Vaccine (1 - Tdap) 1981 Hepatitis B Screening 1988 Regular Well Visit/Exam 18-64 1988 Breast Cancer Screening-Mammogram 06/21/2017 06/21/2016 Zoster Vaccine (1 of 2) 2020 Covid-19 Vaccine (3 - 2024-2 6 season) 2025 08/26/2021, 08/05/2021 Influenza Vaccine (#1) 2025 Pneumococcal vaccine <65 Aged Out No [...] be contacted by letter. Afshan Head M.D. [facility]:06/25/2016 14:20:16 letter sent: Normal Exam Mammogram BI-RADS: 1 Negative Radiologist: AFSHAN HEAD M.D. Attending: PRADIP RIOS M.D. Requesting: PRADIP RIOS M.D. Requesting Requesting ID: [id number] Attending Attending ID: [id number] Completed Time: 06/21/2016 12:30 AM Dictated Time: [...] Requesting: PRADIP RIOS M.D. Requesting Requesting ID: [id number] Attending Attending ID: [id number] Completed Time: 06/21/2016 12:30 AM Dictated Time: [...] Most Recently Relevant to Health Maintenance Insurance [id number] [place] [address] HMO [facility] [employer] [facility] [employer] Care Teams Computer Networking Instructor Relationship Specialty Start Date End Date Brittani Savage PA PCP - General Physician Medicare Specialist 11/28/23
--- OUTSIDE RECORDS SUMMARY | 2025-09-15 13:20 | XMS_ITS | Patient Health Record ---
Author Organization [facility] Address [address] [facility] [place] [id number] Care Team Providers Care Mother Tester Name Role Phone Raya Calix Primary Care Provider [phone] Allergies No Known Allergies Results Component Value Reference Range Flag Notes .COMPREHENSIVE METABOLIC MARTINEZ EL (59772) CMP Reviewed date:02/12/2025 09:10:26 PM Interpretation: Performing Lab:REBEKAH [id number] Administration Prashant Josue OjheqrnGJ[address] [facility] Notes/Report: FASTING:YES FASTING: YES GLUCOSE 85 65-99 mg/dL N Fasting reference interval UREA NITROGEN (BUN) 16 7-25 mg/dL N CREATININE 0.81 0.50-1.03 mg/dL N EGFR 86 > OR = 60 mL/min/1.73m2 N BUN/CREATININE RATIO SEE NOTE: 6-22 (calc) Not Reported: BUN and Creatinine are within reference range. SODIUM 134 135-146 mmol/L L POTASSIUM 4.6 3.5-5.3 mmol/L N CHLORIDE 100 98-110 mmol/L N CARBON DIOXIDE 25 20-32 mmol/L N CALCIUM 9.6 8.6-10.4 mg/dL N PROTEIN, TOTAL 7.4 6.1-8.1 g/dL N ALBUMIN 4.7 3.6-5.1 g/dL N GLOBULIN 2.7 1.9-3.7 g/dL (calc) N ALBUMIN/GLOBULIN RATIO 1.7 1.0-2.5 (calc) N BILIRUBIN, TOTAL 0.4 0.2-1.2 mg/dL N ALKALINE PHOSPHATASE 65 37-153 U/L N AST 14 10-35 U/L N ALT 14 6-29 U/L N MAGNESIUM (622) Reviewed date:02/12/2025 09:10:26 PM Interpretation: Performing Lab:REBEKAH [employer] [place] [address] Administration Prashant Josue [place] [address] Arya Mendez Notes/Report: FASTING:YES FASTING: YES MAGNESIUM 2.0 1.5-2.5 mg/dL N IRON AND TOTAL IRON BINDING CAPACITY (7573) Reviewed date:02/12/2025 09:10:26 PM Interpretation: Performing Lab:Richy TOBIAS-[address], NvplhuNR[address] Arya Mendez MD Notes/Report: FASTING:YES FASTING: YES IRON, TOTAL 76 45-160 mcg/dL N IRON BINDING CAPACITY 352 250-450 mc g/dL (calc) N % SATURATION 22 16-45 % (calc) N .LIPID PANEL, STANDARD (7600 ) Reviewed date:02/12/2025 09:10:26 PM Interpretation: Performing Lab:Richy [place] [address] Administration Prashant Josue [place] [address] Arya Mendez Notes/Report: FASTING:YES FASTING: YES CHOLESTEROL, TOTAL 203 <200 mg/dL H HDL CHOLESTEROL 61 > OR = 50 mg/dL N TRIGLYCERIDES 106 <150 mg/dL N LDL-CHOLESTEROL 121 H with > or = 2 CHD risk factors. better accuracy than the Friedewald equation in the Flavio SS et al. ABDON. 2013;310(19): 3025-1667 calculation, which is a validated novel method providing estimation of LDL-C. LDL-C is now calculated using the [facility] (http://education.[employer].Where/faq/XPR133) Reference range: <100 Desirable range <100 mg/dL for primary prevention; <70 mg/dL for patients with CHD or diabetic patients CHOL/HDLC RATIO 3.3 <5.0 (calc) N NON HDL CHOLESTEROL 142 <130 mg/dL (calc) H For patients with diabetes plus 1 major ASCVD risk factor, treating to a non-HDL-C goal of <100 mg/dL (LDL-C of <70 mg/dL) is considered a therapeutic option. .CBC (INCLUDES DIFF/PLT) (63 99) Reviewed date:02/12/2025 09:10:26 PM Interpretation: Performing Lab:Richy [place] [address] Administration Prashant Josue [place] [address] Arya Mendez Notes/Report: FASTING:YES FASTING: YES WHITE BLOOD CELL COUNT 5.3 3.8-10.8 Thousand/uL N RED BLOOD CELL COUNT 4.39 3.80-5.10 Million/uL N HEMOGLOBIN 13.8 11.7-15.5 g/dL N HEMATOCRIT 40.8 35.0-45.0 % N MCV 92.9 80.0-100.0 fL N MCH 31.4 27.0-33.0 pg N MCHC 33.8 32.0-36.0 g/dL N red cell parameters and the patient's clinical For adults, a slight decrease in the calculated MCHC condition. interpreted with caution in correlation with other value (in the range of 30 to 32 g/dL) is most likely not clinically significant; however, it should be RDW 12.4 11.0-15.0 % N PLATELET COUNT 275 140-400 Thousand/uL N MPV 10.6 7.5-12.5 fL N ABSOLUTE NEUTROPHILS [phone] cells/uL N ABSOLUTE LYMPHOCYTES 1617 869-2503 cells/uL N ABSOLUTE MONOCYTES 440 200-950 cells/uL N ABSOLUTE EOSINOPHILS 170 15-500 cells/uL N ABSOLUTE BASOPHILS 42 0-200 cells/uL N NEUTROPHILS 63.6 N LYMPHOCYTES 24.1 N MONOCYTES 8.3 N EOSINOPHILS 3.2 N BASOPHILS 0.8 N .HEMOGLOBIN A1c (496) Reviewed date:02/12/2025 09:10:26 PM Interpretation: Performing Lab:REBEKAH [facility] CenterPoedm[address] Administration Prashant Josue FqjnywcHD[address] [facility] Notes/Report: FASTING:YES FASTING: YES HEMOGLOBIN A1c 5.7 <5.7 % of total Hgb H For someone with known diabetes, a value <7% A1c value between 5.7% and 6.4% is consistent with follow-up test. For someone without known diabetes, a hemoglobin targets should be individualized based on duration of indicates that their diabetes is well controlled. A1c Currently, no consensus exists regarding use of considerations. of diabetes. This assay result is consistent with an increased risk prediabetes and should be confirmed with a diabetes, age, comorbid conditions, and other hemoglobin A1c for diagnosis of diabetes for children. DHEA SULFATE (402) Reviewed date:02/12/2025 09:10:26 PM Interpretation: Performing Lab:JATINDER [employer] [facility] [facility]-Bqtjnr53324 Myrna VivaraKS[address] Arya Mendez MD Notes/Report: FASTING:YES FASTING: YES DHEA SULFATE 56 5-167 mcg/dL N VITAMIN B12/FOLATE, SERUM PA ANTONETTE (2720) Reviewed date:02/12/2025 09:10:26 PM Interpretation: Performing Lab:Richy TOBIAS-John Red[address] Arya Mendez MD Notes/Report: FASTING:YES FASTING: YES VITAMIN B12 >2000 200-1100 pg/mL H FOLATE, SERUM 13.0 N Normal: >5.4 Borderline: 3.4-5.4 Reference Range Low: <3.4 T4, FREE (866) Reviewed date:02/12/2025 09:10:26 PM Interpretation: Performing Lab:REBEKAH [facility] [place] [address] Administration Prashant Josue [place] [address] LibertyMichelle Mendez Notes/Report: FASTING:YES FASTING: YES T4, FREE 1.4 0.8-1.8 ng/dL N CORTISOL, TOTAL (367) Reviewed date:02/12/2025 09:10:26 PM Interpretation: Performing Lab:Richy TOBIAS LenexaKS[address] Arya Mendez MD Notes/Report: FASTING:YES FASTING: YES CORTISOL, TOTAL 16.5 N Reference Range: For 8 a.m.(7-9 a.m.) Specimen: 4.0-22.0 * Please interpret above results accordingly * Reference Range: For 4 p.m.(3-5 p.m.) Specimen: 3.0-17.0 TSH (899) Reviewed date:02/12/2025 09:10:26 PM Interpretation: Performing Lab:REBEKAH [facility] Card[place] [address] [address] Prashant Josue [address] Bouchra Mendez Notes/Report: FASTING:YES FASTING: YES TSH 1.54 N Third trimester 0.43-2.91 Second trimester 0.55-2.73 Ranges > or = 20 Years 0.40-4.50 Reference Range First trimester 0.26-2.66 T3, FREE (91665) Reviewed date:02/12/2025 09:10:26 PM Interpretation: Performing Lab:Richy TOBIAS-Fpigze06560 [address], EjqouuPR[address] Arya Mendez MD Notes/Report: FASTING:YES FASTING: YES T3, FREE 3.0 2.3-4.2 pg/mL N .VITAMIN D,25-OH,TOTAL,IA (1 7306) Reviewed date:02/12/2025 09:10:26 PM Interpretation: Performing Lab:Richy TOBIAS-Uwfrmt[address], DgshjqSN[address] Arya Mendez MD Notes/Report: FASTING:YES FASTING: YES VITAMIN D,25-OH,TOTAL,IA 35 30-100 ng/mL N Vitamin D Status 25-OH Vitamin D: Note 1 educational purposes only.) Insufficiency: 20 - 29 ng/mL Optimal: > or = 30 ng/mL of D2 and D3 fractions is required, the Zakada() code 01089 (patients >2yrs). D2-supplementation and patients for whom quantitation For additional information, please refer to http://education.[employer]/faq/TNZ385 For 25-OH Vitamin D testing on patients on 25-OH VIT D, (D2,D3), LC/MS/MS is recommended: order (This link is being provided for informational/ Deficiency: <20 ng/mL See Note 1 ACTH, PLASMA (211) Reviewed date:02/14/2025 11:35:52 AM Interpretation: Performing Lab:Richy FELIX/[place] Hester [id number] [facility] Josue, HemzizhfhLH[address] Josue Craig M.D.,PhD Notes/Report: FASTING:YES FASTING: YES ACTH, PLASMA 9 6-50 pg/mL between 7am-10am. Reference range applies only to specimens collected .COMPREHENSIVE METABOLIC MARTINEZ (82375) [facility] Reviewed date:07/01/2025 12:23:49 PM Interpretation: Performing Lab:Richy WELCHSoutheast [facility] Community Treatment CenterJowyx[address] QjgucswYI[address] Arya Mendez Notes/Report: GLUCOSE 76 65-99 mg/dL N Fasting reference interval UREA NITROGEN (BUN) 12 7-25 mg/dL N CREATININE 0.76 0.50-1.03 mg/dL N EGFR 92 > OR = 60 mL/min/1.73m2 N BUN/CREATININE RATIO SEE NOTE: 6-22 (calc) reference range. Not Reported: BUN and Creatinine are within SODIUM 136 135-146 mmol/L N POTASSIUM 4.5 3.5-5.3 mmol/L N CHLORIDE 100 98-110 mmol/L N CARBON DIOXIDE 28 20-32 mmol/L N CALCIUM 9.4 8.6-10.4 mg/dL N PROTEIN, TOTAL 7.2 6.1-8.1 g/dL N ALBUMIN 4.5 3.6-5.1 g/dL N GLOBULIN 2.7 1.9-3.7 g/dL (calc) N ALBUMIN/GLOBULIN RATIO 1.7 1.0-2.5 (calc) N BILIRUBIN, TOTAL 0.3 0.2-1.2 mg/dL N ALKALINE PHOSPHATASE 68 37-153 U/L N AST 14 10-35 U/L N ALT 15 6-29 U/L N .LIPID PANEL, STANDARD (7600 ) Reviewed date:07/01/2025 12:23:49 PM Interpretation: Performing Lab:REBEKAH [facility] [place] [address] [place] [id number] [facility] Notes/Report: CHOLESTEROL, TOTAL 197 <200 mg/dL N HDL CHOLESTEROL 74 > OR = 50 mg/dL N TRIGLYCERIDES 84 <150 mg/dL N LDL-CHOLESTEROL 106 H calculation, which is a validated novel method providing Desirable range <100 mg/dL for primary prevention; better accuracy than the Friedewald equation in the Flavio CEDENO et al. ABDON. 2013;310(19): 2697-0259 LDL-C is now calculated using the Flavio-Burr <70 mg/dL for patients with CHD or diabetic patients with > or = 2 CHD risk factors. (http://education.[employer].com/faq/BKO956) Reference range: <100 estimation of LDL-C. CHOL/HDLC RATIO 2.7 <5.0 (calc) N NON HDL CHOLESTEROL 123 <130 mg/dL (calc) N (LDL-C of <70 mg/dL) is considered a therapeutic factor, treating to a non-HDL-C goal of <100 mg/dL For patients with diabetes plus 1 major ASCVD risk option. .CBC (INCLUDES DIFF/PLT) (63 99) Reviewed date:07/01/2025 12:23:49 PM Interpretation: Performing Lab:Richy WELCHSoutheast Missouri Community Treatment CenterHoozd167[address] Administration Prashant Josue RgcvjbbUW[address] Arya Mendez Notes/Report: WHITE BLOOD CELL COUNT 6.3 3.8-10.8 Thousand/uL N RED BLOOD CELL COUNT 4.22 3.80-5.10 Million/uL N HEMOGLOBIN 12.9 11.7-15.5 g/dL N HEMATOCRIT 40.5 35.0-45.0 % N MCV 96.0 80.0-100.0 fL N MCH 30.6 27.0-33.0 pg N MCHC 31.9 32.0-36.0 g/dL L interpreted with caution in correlation with other not clinically significant; however, it should be For adults, a slight decrease in the calculated MCHC condition. value (in the range of 30 to 32 g/dL) is most likely red cell parameters and the patient's clinical RDW 12.3 11.0-15.0 % N PLATELET COUNT 277 140-400 Thousand/uL N MPV 10.5 7.5-12.5 fL N ABSOLUTE NEUTROPHILS 3938 9470-8227 cells/uL N ABSOLUTE LYMPHOCYTES 4260 489-1073 cells/uL N ABSOLUTE MONOCYTES 447 200-950 cells/uL N ABSOLUTE EOSINOPHILS 120 15-500 cells/uL N ABSOLUTE BASOPHILS 50 0-200 cells/uL N NEUTROPHILS 62.5 N LYMPHOCYTES 27.7 N MONOCYTES 7.1 N EOSINOPHILS 1.9 N BASOPHILS 0.8 N INSULIN (561) Reviewed date:07/01/2025 12:23:49 PM Interpretation: Performing Lab:JATINDER [employer] [facility]-Sazpnh[address], UipwakHB[address] Arya Mendez MD Notes/Report: INSULIN 11.2 N Optimal < or = 18.4 Reference Range < or = 18.4 Risk: are based on Insulin Reference Interval in 2021. cut points (optimal, moderate, high) studies performed at [facility] High >18.4 Moderate NA Adult cardiovascular event risk category T3, FREE (32972) Reviewed date:07/01/2025 12:23:49 PM Interpretation: Performing Lab:Richy TOBIAS-Bbflux59090 [address], OlnowvKL[address] Arya Mendez MD Notes/Report: T3, FREE 2.8 2.3-4.2 pg/mL N TSH (899) Reviewed date:07/01/2025 12:23:49 PM Interpretation: Performing Lab:Richy WELCH [place] [address] Administration Prasahnt Josue [place] [address] Arya Mendez Notes/Report: TSH 2.00 N Ranges Reference Range > or = 20 Years 0.40-4.50 Second trimester 0.55-2.73 First trimester 0.26-2.66 Third trimester 0.43-2.91 T4, FREE (866) Reviewed date:07/01/2025 12:23:49 PM Interpretation: Performing Lab:Richy WELCH [place] [address] Administration Prashant Josue [place] [address] Arya Mendez Notes/Report: T4, FREE 1.4 0.8-1.8 ng/dL N .HEMOGLOBIN A1c (496) Reviewed date:07/01/2025 12:23:49 PM Interpretation: Performing Lab:REBEKAH [facility] [place] [address] Administration Prashant Josue [place] [address] Arya Mendez Notes/Report: HEMOGLOBIN A1c 5.4 <5.7 % of total Hgb N Currently, no consensus exists regarding use of > or =6.5% Consistent with diabetes guidelines, hemoglobin A1c <7.0% represents optimal control in non- diabetic patients. Different metrics may apply to specific patient populations. According to [place] [employer] (ADA) hemoglobin A1c for diagnosis of diabetes in children. 5.7-6.4% Consistent with increased risk for diabetes (prediabetes) For the purpose of screening for the presence of of diabetes. diabetes: <5.7% Consistent with the absence of diabetes Standards of Medical Care in Diabetes(ADA). This assay result is consistent with a decreased risk Reason For Referral No Information Medications Medication SIG (Take, Route, Frequency, Duration) Notes Start Date End Date Status BD Insulin Syringe U/F 30G X 1/2 1 ML Miscellaneous used to inject once weekly; Duration: 90 days 03/12/2025 Active Progesterone 200 MG Capsule 1 capsule at bedtime Orally Once a day; Duration: 90 days 02/25/2025 Active Estradiol 0.5 MG Tablet TAKE 1 TABLET BY MOUTH EVERY DAY; Duration: 90 Active Tirosint 50 MCG (0.05 MG) CAPSULE TAKE ONE CAPSULE BY MOUTH EVERY MORNING; Duration: 90 DAYS *Please review and pick correct strength-formulat ion from [employer] options. If intended option is not shown, discontinue and re-order from Quick Search* *Pick strength-form from [employer] for eRX* Active metFORMIN HCl ER 500 MG Tablet Extended Release 24 Hour TAKE 1 TABLET BY MOUTH ONCE DAILY WITH DINNER FOR 90 DAYS; Duration: 90 Active Tirosint 50 MCG Capsule 1 capsule in the morning on an empty stomach Orally Once a day; Duration: 90 days 07/05/2025 Active Spironolactone 50 MG Tablet TAKE 2 TABLETS BY MOUTH DAILY FOR 90 DAYS; Duration: 90 Active Estradiol 1 MG Tablet 1 tablet Orally Once a day; Duration: 90 days 07/05/2025 Active Phentermine HCl 15 MG Capsule TAKE 1 CAPSULE BY MOUTH EVERY DAY FOR 90 DAYS; Duration: 90 07/17/2025 Active Cyanocobalamin 1000 MCG/ML Solution INJECT 1 ML EVERY WEEK BY SUBCUTANEOUS ROUTE IN THE MORNING FOR 90 DAYS.; Duration: 90 Days Active Linzess 72 MCG Capsule 1 cap(s) orally once a day; Duration: 90 days 08/27/2024 Not-Taking Progesterone 200 MG Capsule 1 capsule at bedtime Orally Once a day; Duration: 90 days 07/05/2025 Active Montelukast Sodium 10 MG Tablet TAKE 1 TABLET BY MOUTH EVERY DAY FOR 30 DAYS Oral; Duration: 30 Days Active Fluticasone Propionate 50 MCG/ACT Suspension SPRAY 1 SPRAY INTO INTO EACH NOSTRIL TWICE A DAY Nasal; Duration: 90 Days Active Spironolactone 50 MG Tablet 2 tablet Orally Once a day; Duration: 90 days 07/05/2025 Active metFORMIN HCl ER 500 MG Tablet Extended Release 24 Hour 1 tablet with meal Orally Once a day; Duration: 90 days 07/05/2025 Active Famotidine 40 MG Tablet TAKE 1 TABLET BY MOUTH TWICE A DAY FOR 30 DAYS Oral; Duration: 30 Days Active Azelastine HCl 0.05 % Solution Ophthalmic; Duration: 90 Days Active Social History Section Notes: Non-Contributory Problems Problem Type SNOMED Code ICD Code Onset Dates Problem Status W/U Status Risk Notes Problem Hypothyroidism (22145962) Hypothyroidism, unspecified (E03.9) Active confirmed Problem Vitamin D deficiency (61923067) Vitamin D deficiency, unspecified (E55.9) Active confirmed Problem Overweight (976039535) Overweight (E66.3) Active confirmed Problem Obesity (372708148) Obesity, unspecified (E66.9) Active confirmed Problem Menopause (395144815) Menopausal and female climacteric states (N95.1) Active confirmed Problem Unspecified menopausal and perimenopausal disorder (N95.9) Active confirmed Problem Chronic idiopathic constipation (04309303) Chronic idiopathic constipation (K59.04) Active confirmed Vital Signs Heart Rate 89 /min 07/05/2025 Oximetry 97 % 07/05/2025 Height-cm 152.4 cm 07/05/2025 Blood pressure diastolic 82 mm Hg 07/05/2025 Weight-kg 68.95 kg 07/05/2025 Height 60 in 07/05/2025 Blood pressure systolic 129 mm Hg 07/05/2025 Weight 152.0 lbs 07/05/2025 BMI 29.68 kg/m2 07/05/2025 Encounters Encounter Location Date Provider Diagnosis AMMO Dr. Calix [address] [place] [phone] 02/25/2025 Raya Calix Hypothyroidism, unspecified E03.9 ; Menopausal and female climacteric states N95.1 ; Vitamin D deficiency, unspecified E55.9 ; Prediabetes R73.03 and Dietary counseling and surveillance Z71.[address] Calix [address] [place] [phone] 07/05/2025 Raya Calix Hypothyroidism, unspecified E03.9 ; Menopausal and female climacteric states N95.1 ; Overweight E66.3 ; Other fatigue R53.83 and Dietary counseling and surveillance Z71.3 AMMO [facility] [address] [place] [phone] 10/14/2024 Raya Calix Obesity, unspecified E66.9 AMMO [facility] [address] [place] [phone] 01/22/2025 Raya Calix [facility] [address] [place] [phone] 03/12/2025 Raya Calix [facility] [address] [place] [phone] 05/26/2025 Raya Calix [address] [place] [address] 06/18/2025 Raya [id number] [place] [phone] 05/25/2025 Raya Calix Assessments Encounter Date Diagnosis (ICD Code) Assessment Notes Treatment Notes Treatment Clinical Notes Section Notes 10/14/2024 Obesity, unspecified (ICD-10 - E66.9) 02/25/2025 Hypothyroidism, unspecified (ICD-10 - E03.9) 02/25/2025 Menopausal and female climacteric states (ICD-10 - N95.1) 07/05/2025 Hypothyroidism, unspecified (ICD-10 - E03.9) TFTs in range- continue tirosint 50 mcg daily 07/05/2025 Menopausal and female climacteric states (ICD-10 - N95.1) continue estradiol 1 mg daily along with progesterone 200 mg daily- patient up to date with female exams and mamograms. 07/05/2025 Overweight (ICD-10 - E66.3) Discussed increasing protein intake into diet along with incorporating berberine and chromium to help with insulin and avoidance of refined sugars/processed foods as these are likely contributing to her glycemic disturbances. Recommended GLP1 agonist therapy to help better regulate her glucose but insurance would not cover and patient uncertain of shelter effects and wishes to work on diet and exercise. 02/25/2025 Vitamin D deficiency, unspecified (ICD-10 - E55.9) 02/25/2025 Prediabetes (ICD-10 - R73.03) 07/05/2025 Other fatigue (ICD-10 - R53.83) 07/05/2025 Dietary counseling and surveillance (ICD-10 - Z71.3) Spent 15 minutes preventative counseling patient on dietary recommendations and changes in setting of hyperglycemia- need to restrict refined sugars and processed foods and incorporate up to 150 minutes of moderate level activity weekly. 02/25/2025 Dietary counseling and surveillance (ICD-10 - Z71.3) Spent 15 minutes preventative counseling patient on dietary recommendations and changes in setting of hyperglycemia- need to restrict refined sugars and processed foods and incorporate up to 150 minutes of moderate level activity weekly. 02/25/2025 Other Assessment and Plan: 1. Menopausal symptoms- Discontinue current topical estrogen cream- Start estradiol 0.5 mg tablet PO daily with lunch- Start progesterone (dose not specified) PO at bedtime- Educate on potential side effects: headaches, sleep disturbances- Reduce daily water intake to 64 ounces- Follow up if experiencing headaches or sleep disturbances to consider adjusting hormone therapy 2. Prediabetes- Continue current management approach - Encourage maintenance of weight loss and healthy lifestyle habits 3. Hyperlipidemia- Continue current management approach- Reassess lipid levels at next follow-up 4. Hypothyroidism- Continue Tirosint 50 mcg PO daily in the morning- Separate Tirosint administration from new estradiol dose 5. Scalp tenderness- Monitor response to newly prescribed progesterone- Follow up if symptoms persist or worsen- Consider further evaluation, including possible repeat MRI, if symptoms do not improve with hormone therapy adjustment 6. Chronic constipation- Continue current management approach- Reassess at next follow-up Spent 25 minutes preparing to see the patient (ex review of tests/chart), obtaining and / or reviewing separately obtained history, performing a medically appropriate examination and/or evaluation, counseling and educating the patient/family/senior care assistant, ordering medications, tests, or procedures, referring and communicating with other health healthcare management, documenting clinical information in the electronic or other health record, independently interpreting results and communicating results to the patient/family/senior care assistant and care coordinating patient plan. Patient alert and oriented x 4 and aware of discussion noted above and in agreeance to plan in management of hypothyroidism, prediabetes/impaire d glucose, and menopausal changes. 07/05/2025 Other Spent 25 minute s preparing to see the patient (ex review of tests/chart), obtaining and / or reviewing separately obtained history, performing a medically appropriate examination and/or evaluation, counseling and educating the patient/family/senior care assistant, ordering medications, tests, or procedures, referring and communicating with other health healthcare management, documenting clinical information in the electronic or other health record, independently interpreting results and communicating results to the patient/family/senior care assistant and care coordinating patient plan. Patient alert and oriented x 4 and aware of discussion noted above and in agreeance to plan in management of hypothyroidism, menopausal changes, glycemic control/dietary recommendations and weight management. Plan Of Treatment Next Appt Details Provider Name:Raya Calix, 09:30:00 AM, [id number] [place] [address], [phone], Insurance Providers Payer Name Payer Address Payer Phone Subscriber Number Group Number Insured Name Patient Relationship to Insured Coverage Start Date Coverage End Date [facility] [address] [address] [place], [place] [id number] Fany Umaña Self - patient is the insured Medical (General) History Medical History History ICD Code asthma thyroid disease
== END 2025-09-15 11:49 | disposition home or self-care (01) ==
LOC: CHSIMG 11:49
PROVIDERS: PCP Physician Assistant; Visit Provider Physician Assistant
DX: Z12.31 Encounter for screening mammogram for malignant neoplasm of breast (principal); R92.8 Other abnormal and inconclusive findings on diagnostic imaging of breast
CPT/HCPCS: 77063; 77067